=== PATIENT | male | born 1940 | race Asian ===

== ENCOUNTER 2020-04-27 11:10 | Inpatient (IN) | payer MEDICARE, OTHER ==
[2020-04-27] MEDS ORDERED: MAGNESIUM SULFATE 2 GRAM 2 GM/50 ML BAG IV ONE (12:17)
[2020-04-27] MEDS ORDERED: POTASSIUM CHLORIDE 20 MEQ TABLET PO STA (12:17)
[2020-04-27] MEDS ORDERED: SODIUM CHLORIDE 0.9% 1,000 ML IV STA (12:17)
[2020-04-27] MEDS ORDERED: POTASSIUM CHLOR 10 MEQ/100 ML 10 MEQ/100 ML BAG IV ONE (12:17)
--- NOTE | 2020-04-27 12:20 | ED Physician Documentation ---
History of Present Illness - Stated complaint Stated Complaint: MALE - Chief complaint Chief Complaint: General - History obtained from History obtained from: Patient, Family - History of Present Illness Timing: How many weeks ago (1) - Additonal information Additional information: over the past week increased falls, small volumes of foul urine frequently. He has been afebrile but feels weak in general and has had falls. He is accompanied by a daughter who is versed in his medical care. She is concerned about the falls and was asked by the PMD to bring him to the hospital for evaluation as the blood work showed a low potassium and renal insufficiency. The patient reports that he was not injured with the falls. Review of Systems Constitutional: denies: Fever Eyes: denies: Decreased vision Ears: denies: Ear pain Nose: denies: Congestion Throat: denies: Sore throat Cardiac: denies: Chest pain / pressure, Palpitations Respiratory: denies: Dyspnea, Cough GI: denies: Abdominal Pain, Nausea, Vomiting : denies: Dysuria, Frequency Skin: denies: Rash Musculoskeletal: denies: Neck pain, Back pain, Extremity pain Neurologic: reports: Generalized weakness, Other (frequent falling and off balance. Legs not supporting). denies: Focal weakness, Numbness, Difficulty speaking, Head injury, LOC PD PAST MEDICAL HISTORY - Allergies Allergies/Adverse Reactions: Allergies Allergy/AdvReac Type Severity Reaction Status Date / Time No Known Drug Allergies Allergy Verified 04/27/20 11:29 - Social History Does the pt smoke?: No Smoking Status: Never smoker PD ED PE NORMAL - Vitals Vital signs reviewed: Yes (normal ) - General General: Alert and oriented X 3, No acute distress, Well developed/nourished - HEENT HEENT: Atraumatic, PERRL, EOMI - Neck Neck: Supple, no meningeal sign - Cardiac Cardiac: RRR, No murmur - Respiratory Respiratory: No respiratory distress, Clear bilaterally - Abdomen Abdomen: Normal bowel sounds, Soft, Non tender, Non distended, No organomegaly - Back Back: No CVA TTP, No spinal TTP - Derm Derm: Normal color, Warm and dry, No rash - Extremities Extremities: No deformity, No edema - Neuro Neuro: Alert and oriented X 3, in home aide 2-12 intact, No motor deficit, No sensory deficit, Normal speech Eye Opening: Spontaneous Motor: Obeys Commands Verbal: Oriented GCS Score: 15 - Psych Psych: Normal mood, Normal affect Results - Vitals Vitals: Vital Signs - 24 hr 04/27/20 04/27/20 11:21 14:03 Temperature 36.9 C 36.6 C Heart Rate 68 73 Respiratory 16 16 Rate Blood Pressure 117/69 119/90 H O2 Saturation 96 99 Oxygen O2 Source Room air - Labs Labs: Laboratory Tests 04/27/20 04/27/20 04/27/20 12:32 12:37 12:37 WBC 9.4 RBC 4.54 L Hgb 14.6 Hct 42.7 MCV 94.1 H MCH 32.2 H MCHC 34.2 RDW 12.6 Plt Count 163 MPV 11.2 Neut # (Auto) 7.1 H Lymph # (Auto) 1.2 L Pima # (Auto) 0.9 Eos # (Auto) 0.1 Baso # (Auto) 0.1 Absolute Nucleated RBC 0.00 Nucleated RBC % 0.0 Sodium 137 Potassium 2.4 L* Chloride 92 L Carbon Dioxide 30 Anion Gap 15.0 H BUN 27 H Creatinine 1.8 H Estimated GFR (MDRD) 36 L Glucose 224 H Estimat Average Glucose Hemoglobin A1c % Lactic Acid Calcium 9.3 Total Bilirubin 1.2 H AST 25 ALT 40 Alkaline Phosphatase 54 Total Protein 6.6 L Albumin 3.3 Globulin 3.3 Albumin/Globulin Ratio 1.0 Lipase 26 Urine Color YELLOW Urine Clarity CLEAR Urine pH 6.5 Ur Specific Cameron 1.015 Urine Protein TRACE Urine Glucose (UA) NEGATIVE Urine Ketones NEGATIVE Urine Occult Blood MODERATE H Urine Nitrite NEGATIVE Urine Bilirubin NEGATIVE Urine Urobilinogen 0.2 (NORMAL) Ur Leukocyte Esterase SMALL H Urine RBC 11-25 H Urine WBC 11-25 H Ur Squamous Epith Cells RARE Squamous Urine Bacteria Few Urine Mucus Few Strands Ur Microscopic Review INDICATED Urine Culture Comments INDICATED 04/27/20 04/27/20 12:37 12:37 WBC RBC Hgb Hct MCV MCH MCHC RDW Plt Count MPV Neut # (Auto) Lymph # (Auto) Pima # (Auto) Eos # (Auto) Baso # (Auto) Absolute Nucleated RBC Nucleated RBC % Sodium Potassium Chloride Carbon Dioxide Anion Gap BUN Creatinine Estimated GFR (MDRD) Glucose Estimat Average Glucose 151 H Hemoglobin A1c % 6.9 H Lactic Acid 2.4 H Calcium Total Bilirubin AST ALT Alkaline Phosphatase Total Protein Albumin Globulin Albumin/Globulin Ratio Lipase Urine Color Urine Clarity Urine pH Ur Specific Cameron Urine Protein Urine Glucose (UA) Urine Ketones Urine Occult Blood Urine Nitrite Urine Bilirubin Urine Urobilinogen Ur Leukocyte Esterase Urine RBC Urine WBC Ur Squamous Epith Cells Urine Bacteria Urine Mucus Ur Microscopic Review Urine Culture Comments Procedures - IVC sono (time) 1215 Bedside IVC sono: IVC measures (cm) (0.92), IVC collapsed c insp (cm) (complete), Dehydration (est 2 liter deficit) PD MEDICAL DECISION MAKING - ED course Complexity details: reviewed results, re-evaluated patient, considered differential, d/w patient, d/w family ED course: 80 y/o male with frequent falls recently has a feeling of weakness in the legs and has foul smelling urine with a small volume and frequency. The patient is found to be dehydrated on interrogation of the IVC and saline is administered. He is diabetic and sugar is over 240 and in addition he is on 2 diuretics. He is found to have UTI and rocephin is administered. Lactate is elevated at 2.4. Potassium is low at 2.4. The patient has some improvement with treatment. He is still at risk today from falls and has not adequately regained his strength. Departure - Departure Disposition: [facility] DC/Xfer Clinical Impression: Dehydration, Hypokalemia Urinary tract infection Qualifiers: Urinary tract infection type: acute cystitis Hematuria presence: with hematuria Qualified Code(s): N30.01 - Acute cystitis with hematuria
[2020-04-27 12:50] LABS: BILIRUBIN,URINE NEGATIVE (NEGATIVE); GLUCOSE, URINE (UA) NEGATIVE (NEGATIVE); KETONES,URINE (UA) NEGATIVE (NEGATIVE); LEUKOCYTE ESTERASE, URINE SMALL (NEGATIVE); NITRITE,URINE NEGATIVE (NEGATIVE); OCCULT BLOOD,URINE MODERATE (NEGATIVE); PH,URINE 6.5 PH (5.0-7.5); PROTEIN,URINE TRACE mg/dL (NEGATIVE); UROBILINOGEN,URINE 0.2 (NORMAL) E.U./dL (NORMAL)
[2020-04-27 12:56] LABS: CLARITY,URINE CLEAR (CLEAR)
[2020-04-27 12:58] LABS: BASOPHILS # (AUTO) 0.1 10^3/uL (0.0-0.1); BASOPHILS % (AUTO) 0.5 %; EOSINOPHILS # (AUTO) 0.1 10^3/uL (0.0-0.7); EOSINOPHILS % (AUTO) 0.5 %; HGB - HEMOGLOBIN 14.6 g/dL (14.0-18.0); LYMPHOCYTES # (AUTO) 1.2 10^3/uL (1.5-3.5); LYMPHOCYTES % (AUTO) 13.2 %; MEAN CORPUSCULAR HEMOGLOBIN 32.2 pg (27.0-31.0); MEAN CORPUSCULAR HGB CONC 34.2 g/dL (32.0-36.0); MEAN CORPUSCULAR VOLUME 94.1 fL (80.0-94.0); MEAN PLATELET VOLUME 11.2 fL (7.4-11.4); MONOCYTES # (AUTO) 0.9 10^3/uL (0.0-1.0); MONOCYTES % (AUTO) 9.2 %; NEUTROPHILS # (AUTO) 7.1 10^3/uL (1.5-6.6); PLT - PLATELET COUNT 163 10^3/uL (130-450); RED BLOOD COUNT 4.54 10^6/uL (4.70-6.10); RED CELL DISTRIBUTION WIDTH 12.6 % (12.0-15.0); WHITE BLOOD COUNT 9.4 x10^3/uL (4.8-10.8)
[2020-04-27 13:01] LABS: BACTERIA,URINE Few /HPF (None Seen); MUCUS,URINE Few Strands; SQUAMOUS EPITHELIAL CELL,UR RARE Squamous (<= Few)
[2020-04-27] MEDS ORDERED: cefTRIAXone 1 GM in SODIUM CHLORIDE 0.9% MINIBAG 100 ML IV STA (13:05)
[2020-04-27 13:13] LABS: ALBUMIN 3.3 g/dL (3.2-5.5); BILIRUBIN,TOTAL 1.2 mg/dL (0.2-1.0); CALCIUM 9.3 mg/dL (8.5-10.3); CREATININE 1.8 mg/dL (0.6-1.2); TOTAL PROTEIN 6.6 g/dL (6.7-8.2)
[2020-04-27 13:39] LABS: HEMOGLOBIN A1c% 6.9 % (4.27-6.07)
[2020-04-27] MEDS ORDERED: SODIUM CHLORIDE FLUSH 0.9% 10 ML SYRINGE IVP PRN (14:29)
[2020-04-27] MEDS ORDERED: ONDANSETRON 4 MG/2 ML VIAL IVP PRN (14:29)
--- NOTE | 2020-04-27 15:37 | PHARMACY PROGRESS NOTE ---
- Best Possible Medication History Admit Date and Time: 04/27/20 1429 Processed by: Pharmacy Medication History completed: Yes Patient Interview: Completed Secondary Source(s): Physician records, Pharmacy records, Insurance records As the person ultimately responsible for medication therapy, providers are able to order a medication from an existing home medication list in [facility] via the "Reconcile Routine" prior to Confirmation of that medication by patient support tech. Such practice is discouraged except when the physician, in their clinical judgment, deems that a medical need exists for a medication without regard to previous use.
[2020-04-27] MEDS: POTASSIUM CHLOR 10 MEQ/100 ML 10 MEQ/100 ML BAG IV SCH ×5 (16:20→23:54)
[2020-04-27] MEDS: SODIUM CHLORIDE FLUSH 0.9% 10 ML SYRINGE IVP SCH (16:21)
[2020-04-27] MEDS: ACETAMINOPHEN 325 MG TABLET PO PRN ×2 (16:32→21:24)
[2020-04-27] MEDS: INSULIN ASPART 300 UNIT/3 ML PEN SUBQ SCH ×3 (17:43→21:23)
[2020-04-27] MEDS: FAMOTIDINE 20 MG TABLET PO SCH (21:24)
--- NOTE | 2020-04-27 21:41 | HISTORY & PHYSICAL EXAMINATION ---
Chief Complaint - Chief Complaint Chief Complaint: Weakness,Frequent falls History of Present Illness - Admitted From Admitted From:: [facility] ED - History Obtained From Records Reviewed: Yes History obtained from: Patient - History of Present Illness HPI Comment/Other: Patient is an 80-year-old male who was brought to the ED by her daughter for evaluation due to complaints of frequent/multiple falls over the past few months. He attributes this to weakness. He denies dizziness or tripping. He is normally independent of activities of daily living, he gets around his house using a walker and he still drives. He lives in [place] with his . Work-up in the ED showed him to have a creatinine of 1.8, potassium 2.5, urine analysis which was suggestive of a urinary tract infection and a lactic acid of 2.4. Patient reports dysuria and increased urinary frequency. He denied fever however he was noted to have a temperature as high as 37.7 C. He has also been complaining of chills since admission. At bedside he denies chest pain, abdominal pain, dyspnea, nausea, vomiting the rest of his history is unremarkable. History - Past Medical History Cardiovascular: reports: Hypertension, High cholesterol Respiratory: reports: None Endocrine/Autoimmune: reports: Type 2 diabetes GI: reports: None : reports: Benign prostate hypertrophy Psych: reports: None Musculoskeletal: reports: None Derm: reports: None - Past Surgical History Derm: reports: Other - Family & Social History Family History Comment/Other: His father at age 72 from an unspecified heart condition. His mother at age 92 from a ruptured abdominal aortic aneurysm. Living arrangement: At home Living Situation: With spouse/s.o. Social History Notes: Lives at home with his . He has a daughter who lives nearby. He denies tobacco or recreational substance use. He drinks 2-3 drinks of whiskey daily. He denied drinking today. He denied ever having withdrawal symptoms. He is independent of activities of daily living. He gets around his house using a walker. He still drives. - POLST Patient has POLST: No POLST Status: Full Code Meds/Allgy - Home Medications Home Medications: Ambulatory Orders Medication Instructions Recorded Confirmed Furosemide [Lasix] 40 mg PO DAILY 04/27/20 04/27/20 Lisinopril [Zestril] 20 mg PO BID 11/02/20 11/02/20 Potassium Chloride [Klor-Con 10] 10 meq PO QID 04/27/20 04/27/20 amLODIPine [Norvasc] 5 mg PO BID 04/27/20 04/27/20 hydroCHLOROthiazide 50 mg PO DAILY 04/27/20 04/27/20 [Hydrochlorothiazide] - Allergies Allergies/Adverse Reactions: Allergies Allergy/AdvReac Type Severity Reaction Status Date / Time No Known Drug Allergies Allergy Verified 04/27/20 11:29 Review of Systems - Constitutional Constitutional: reports: Fever, Chills, Weakness - Eyes Eyes: denies: Pain, Dipolpia - Ears, Nose & Throat Ears, Nose & Throat: denies: Ear pain - Cardiovascular Cariovascular: denies: Irregular heart rate, Palpitations, Chest pain, Edema, Lightheadedness, Syncope - Respiratory Respiratory: denies: Cough, Wheezing, SOB at rest, SOB with exertion - Gastrointestinal Gastrointestinal: denies: Abdominal pain, Abdominal distention, Diarrhea, N ausea, Vomiting, Reflux/heartburn - Genitourinary Genitourinary: reports: Dysuria, Frequency. denies: Urgency, Hematuria - Musculoskeletal Musculoskeletal: denies: Muscle pain, Back pain, Muscle aches, Stiffness - Integumentary Integumentary: denies: Rash, Pruritis, Lesions, Dryness - Neurological Neurological: reports: General weakness. denies: Focal weakness, Headache, Dizziness - Psychiatric Psychiatric: denies: Depression, Anxiety - Endocrine Endocrine: denies: Polyuria, Polydypsia - Hematologic/Lymphatic Hematologic/Lymphatic: reports: Bruising. denies: Anemia, Petechiae Prior Level of Functionality: He is independent of activities of daily living. He gets around the house using a walker. He still drives. Exam - Vital Signs Vital Signs: Vital Signs x48h Temp Pulse Pulse Resp BP BP Pulse Ox 04/27/20 21:28 36.8 C 04/27/20 20:34 37.7 C H 89 18 158/76 H 97 04/27/20 19:35 37.4 C 04/27/20 16:00 37.6 C H 91 18 124/88 H 98 04/27/20 15:03 37.6 C H 147 H 22 146/93 H 98 04/27/20 15:00 86 130/73 04/27/20 14:03 36.6 C 73 16 119/90 H 99 - Physical Exam General Appearance: positive: No acute distress, Alert Eyes Bilateral: positive: PERRL, EOMI ENT: positive: No signs of dehydration Neck: positive: No JVD, Trachea midline Respiratory: positive: Chest non-tender, No respiratory distress, Breath sounds nml. negative: Wheezes, Rales, Rhonchi Cardiovascular: positive: Regular rate & rhythm, No murmur Abdomen: positive: Non-tender, Nml bowel sounds, Other (obese abdome). negative: Guarding, Rebound Back: positive: Nml inspection Skin: positive: Color nml, No rash, Warm, Dry, Other (bruising on upper extremities) Extremities: positive: Non-tender, Full ROM, Nml appearance, No pedal edema Neurologic/Psychiatric: positive: Oriented x3, Mood/affect nml Conclusion/Plan - Problem List (1) Urinary tract infection Conclusion/Plan: Urine cultures pending. The patient spiked a fever later in the day after admission. Consequently blood cultures were obtained. Patient is on Rocephin 1 g every 24 hours. Qualifiers: Urinary tract infection type: acute cystitis Hematuria presence: with h ematuria Qualified Code(s): N30.01 - Acute cystitis with hematuria (2) Acute kidney injury Conclusion/Plan: Possibly multifactorial secondary to UTI and or dehydration. Patient receiving IV hydration Normal saline at 100 mils an hour. He was given a bolus of IV fluids in the ED. Patient is on Rocephin 1 g every 24 hours. (3) Hypokalemia Conclusion/Plan: We will hold patient's Lasix. Patient receiving IV potassium replacement. Recheck magnesium level and replace accordingly. (4) Dehydration Conclusion/Plan: On IV hydration with normal saline at 100 mils per hour. (5) Alcohol use Conclusion/Plan: Patient reports drinking 2-3 drinks of whiskey daily. He denies any history of alcohol withdrawal symptoms. Will monitor for withdrawal symptoms and order CIWA accordingly (6) Diabetes mellitus Conclusion/Plan: Patient reports this is a new diagnosis. He is not on any home medications currently. Sliding scale insulin and Accu-Cheks ordered. Patient's hemoglobin A1c was 6.9 Qualifiers: Diabetes mellitus type: type 2 - Lab Results Fish Bones: 04/27/20 12:37 04/27/20 19:24 Core Measures - Anticipated LOS I expect patient to be DC'd or transferred within 96 hours.: Yes - DVT/VTE - Prophylaxis VTE/DVT Device ordered at admit?: Yes VTE/DVT Prophylaxis med ordered at admit?: Yes
[2020-04-28] MEDS: SODIUM CHLORIDE 0.9% 1,000 ML IV SCH ×2 (00:08→09:26)
[2020-04-28] MEDS: POTASSIUM CHLOR 10 MEQ/100 ML 10 MEQ/100 ML BAG IV SCH ×6 (01:12→13:22)
[2020-04-28] MEDS: SODIUM CHLORIDE FLUSH 0.9% 10 ML SYRINGE IVP SCH ×4 (02:28→23:57)
[2020-04-28 06:01] LABS: BASOPHILS # (AUTO) 0.1 10^3/uL (0.0-0.1); BASOPHILS % (AUTO) 0.9 %; EOSINOPHILS # (AUTO) 0.3 10^3/uL (0.0-0.7); EOSINOPHILS % (AUTO) 3.7 %; HGB - HEMOGLOBIN 12.9 g/dL (14.0-18.0); LYMPHOCYTES % (AUTO) 14.7 %; MEAN CORPUSCULAR HEMOGLOBIN 31.9 pg (27.0-31.0); MEAN CORPUSCULAR HGB CONC 33.1 g/dL (32.0-36.0); MEAN CORPUSCULAR VOLUME 96.5 fL (80.0-94.0); MEAN PLATELET VOLUME 10.6 fL (7.4-11.4); MONOCYTES # (AUTO) 0.8 10^3/uL (0.0-1.0); MONOCYTES % (AUTO) 10.7 %; NEUTROPHILS # (AUTO) 4.8 10^3/uL (1.5-6.6); PLT - PLATELET COUNT 162 10^3/uL (130-450); RED BLOOD COUNT 4.04 10^6/uL (4.70-6.10); RED CELL DISTRIBUTION WIDTH 12.5 % (12.0-15.0)
[2020-04-28 06:08] LABS: CALCIUM 8.2 mg/dL (8.5-10.3); CREATININE 1.6 mg/dL (0.6-1.2)
[2020-04-28] MEDS ORDERED: POTASSIUM CHLORIDE 20 MEQ TABLET PO ONE (08:20)
[2020-04-28] MEDS: cefTRIAXone 1 GM in SODIUM CHLORIDE 0.9% MINIBAG 100 ML IV SCH (09:26)
[2020-04-28] MEDS: FAMOTIDINE 20 MG TABLET PO SCH ×2 (09:27→21:33)
[2020-04-28] MEDS: THIAMINE 100 MG TABLET PO SCH (09:30)
[2020-04-28] MEDS: INSULIN ASPART 300 UNIT/3 ML PEN SUBQ SCH ×4 (09:50→21:33)
[2020-04-28] MEDS: PRENATAL VITAMIN TABLET PO SCH (09:59)
--- NOTE | 2020-04-28 13:07 | PROVIDER PROGRESS NOTE ---
Assessment/Plan - Problem List (1) Urinary tract infection Qualifiers: Urinary tract infection type: acute cystitis Hematuria presence: with hematuria Qualified Code(s): N30.01 - Acute cystitis with hematuria Assessment/Plan: Patient's WBC is normal but patient had spot elevated temperature in hospital. Blood culture is pending. UA culture show positive E. coli, Sensitivity study is pending, We will continue Rocephin (2) Acute kidney injury improved. Creatinine is 1.6 from 1.8 in the admission, likely prerenal azotemia, Continue hydration, continue lab monitor. Hold home medication Lasix and HCTZ (3) Hypokalemia We will hold patient's Lasix, and HCTZ now. 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 He denies any history of alcohol withdrawal symptoms. Will monitor for withdrawal symptoms and order CIWA accordingly, and order and Vitamin B1 (6) Diabetes mellitus Patient's hemoglobin A1c was 6.9,Elevated glucose level. hematology nurse educator consult with patient, Continue sliding scale, continue Hypoglycemia protocol (7)weakness Patient present weakness, fall at home, we will consult with physical therapist and occupational therapist - Current Meds Current Meds: Current Medications Generic Name Dose Route Start Last Admin Trade Name Freq PRN Reason Stop Dose Admin Acetaminophen 650 mg 04/27/20 14:29 04/27/20 21:24 Tylenol PO 650 mg Q4HR PRN Administration Pain or Fever > 38C (100.4F) Famotidine 20 mg 04/27/20 21:00 04/28/20 09:27 Pepcid PO 20 mg BID ROBERT Administration Ceftriaxone Sodium 1 gm/ 100 mls @ 200 mls/hr 04/28/20 09:00 04/28/20 10:11 Sodium Chloride IV Infused DAILY ROBERT Infusion Sodium Chloride 1,000 mls @ 100 mls/hr 04/27/20 23:00 04/28/20 09:26 Normal Saline 0.9% IV 100 mls/hr .Q10H ROBERT Administration Insulin Aspart 1 - 9 unit 04/27/20 21:30 04/28/20 11:52 Novolog SUBQ 3 unit 0800,1200,1700,2100 ROBERT Administration Protocol Multivit/Folic Acid/Iron 1 tab 04/28/20 09:00 04/28/20 09:59 Trinatal Rx 1 PO 1 tab DAILYWM ROBERT Administration Sodium Chloride 10 ml 04/27/20 17:00 04/28/20 09:59 Normal Saline Flush 0.9% IVP Not Given 0100,0900,1700 ROBERT Thiamine HCl 100 mg 04/28/20 09:00 04/28/20 09:30 Vitamin B-1 PO 100 mg DAILY ROBERT Administration - Lab Result Fish Bone Diagrams: 04/28/20 05:15 04/28/20 13:55 - Additional Planning My Orders: My Active Orders 04/28/20 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 Consult [CONS] Routine Social Work Consult [CONS] Routine Evaluate and Treat OT [OT] Routine Evaluate and Treat PT [PT] Routine 04/28/20 09:00 Vitamin [Trinatal Rx 1] 1 tab PO DAILYWM Thiamine [Vitamin B-1] 100 mg PO DAILY 04/28/20 09:29 Diabetic Education [RC] ONCE Subjective - Subjective Patient Reports: Feeling Better Objective Vital Signs: Vital Signs - 24 hr 04/27/20 04/27/20 04/27/20 14:03 15:00 15:03 Temperature 36.6 C 37.6 C H Heart Rate 73 Heart Rate [ Activity] Heart Rate [ 86 147 H Brachial] Heart Rate [ Sitting] Heart Rate [ Supine] Respiratory 16 22 Rate Blood Pressure 119/90 H Blood Pressure [Activity] Blood Pressure [Right Brachial artery] Blood Pressure 130/73 146/93 H [Right Radial artery] Blood Pressure [Sitting] Blood Pressure [Supine] O2 Saturation 99 98 04/27/20 04/27/20 04/27/20 16:00 19:35 20:34 Temperature 37.6 C H 37.4 C 37.7 C H Heart Rate Heart Rate [ Activity] Heart Rate [ 91 89 Brachial] Heart Rate [ Sitting] Heart Rate [ Supine] Respiratory 18 18 Rate Blood Pressure Blood Pressure [Activity] Blood Pressure [Right Brachial artery] Blood Pressure 124/88 H 158/76 H [Right Radial artery] Blood Pressure [Sitting] Blood Pressure [Supine] O2 Saturation 98 97 04/27/20 04/28/20 04/28/20 21:28 00:00 03:39 Temperature 36.8 C 37.7 C H 37.2 C Heart Rate Heart Rate [ Activity] Heart Rate [ 71 Brachial] Heart Rate [ Sitting] Heart Rate [ Supine] Respiratory 16 Rate Blood Pressure Blood Pressure [Activity] Blood Pressure [Right Brachial artery] Blood Pressure 126/65 [Right Radial artery] Blood Pressure [Sitting] Blood Pressure [Supine] O2 Saturation 95 04/28/20 04/28/20 04/28/20 04:06 04:35 08:24 Temperature 37.8 C H 37.4 C 37.5 C Heart Rate Heart Rate [ Activity] Heart Rate [ 80 77 Brachial] Heart Rate [ Sitting] Heart Rate [ Supine] Respiratory 20 20 Rate Blood Pressure Blood Pressure [Activity] Blood Pressure 134/82 H 133/67 H [Right Brachial artery] Blood Pressure [Right Radial artery] Blood Pressure [Sitting] Blood Pressure [Supine] O2 Saturation 97 96 04/28/20 04/28/20 12:09 12:25 Temperature 37.6 C H Heart Rate Heart Rate [ 65 Activity] Heart Rate [ 89 Brachial] Heart Rate [ 79 Sitting] Heart Rate [ 87 Supine] Respiratory 20 Rate Blood Pressure Blood Pressure 153/86 H [Activity] Blood Pressure 128/58 L [Right Brachial artery] Blood Pressure [Right Radial artery] Blood Pressure 131/70 H [Sitting] Blood Pressure 129/68 [Supine] O2 Saturation 96 Oxygen O2 Source Room air I&O (Last 24 Hrs): Intake and Output Totals x24h 04/26/20 04/27/20 04/28/20 23:59 23:59 23:59 Intake Total 1999 2680 Output Total 100 390 Balance 1900 2290 General: Alert, Oriented x3, No acute distress HEENT: Atraumatic Neck: Supple Lymphatic: no adenopathy Neuro: Alert, Non Focal, Oriented Times 3 Cardiovascular: Regular rate, Normal S1, Normal S2 Respiratory: Chest non-tender, No respiratory distress Abdomen: Normal bowel sounds, Soft Extremities: Normal pulses - Results Results: Laboratory Results WBC 7.0 x10^3/uL (4.8-10.8) 04/28/20 05:15 RBC 4.04 10^6/uL (4.70-6.10) L 04/28/20 05:15 Hgb 12.9 g/dL (14.0-18.0) L 04/28/20 05:15 Hct 39.0 % (42.0-52.0) L 04/28/20 05:15 MCV 96.5 fL (80.0-94.0) H 04/28/20 05:15 MCH 31.9 pg (27.0-31.0) H 04/28/20 05:15 MCHC 33.1 g/dL (32.0-36.0) 04/28/20 05:15 RDW 12.5 % (12.0-15.0) 04/28/20 05:15 Plt Count 162 10^3/uL (130-450) 04/28/20 05:15 MPV 10.6 fL (7.4-11.4) 04/28/20 05:15 Neut # (Auto) 4.8 10^3/uL (1.5-6.6) 04/28/20 05:15 Lymph # (Auto) 1.0 10^3/uL (1.5-3.5) L 04/28/20 05:15 Dane # (Auto) 0.8 10^3/uL (0.0-1.0) 04/28/20 05:15 Eos # (Auto) 0.3 10^3/uL (0.0-0.7) 04/28/20 05:15 Baso # (Auto) 0.1 10^3/uL (0.0-0.1) 04/28/20 05:15 Absolute Nucleated RBC 0.00 x10^3/uL 04/28/20 05:15 Nucleated RBC % 0.0 /100WBC 04/28/20 05:15 Sodium 138 mmol/L (135-145) 04/28/20 05:15 Potassium 2.8 mmol/L (3.5-5.0) L 04/28/20 05:15 Chloride 99 mmol/L (101-111) L 04/28/20 05:15 Carbon Dioxide 29 mmol/L (21-32) 04/28/20 05:15 Anion Gap 10.0 (6-13) 04/28/20 05:15 BUN 24 mg/dL (6-20) H 04/28/20 05:15 Creatinine 1.6 mg/dL (0.6-1.2) H 04/28/20 05:15 Estimated GFR (MDRD) 42 (>89) L 04/28/20 05:15 Glucose 170 mg/dL (70-100) H 04/28/20 05:15 POC Whole Bld Glucose 189 mg/dL (70 - 100) H 04/28/20 11:33 Estimat Average Glucose 151 mg/dL (70-100) H 04/27/20 12:37 Hemoglobin A1c % 6.9 % (4.27-6.07) H 04/27/20 12:37 Lactic Acid 2.4 mmol/L (0.5-2.2) H 04/27/20 15:08 Calcium 8.2 mg/dL (8.5-10.3) L 04/28/20 05:15 Magnesium 2.6 mg/dL (1.7-2.8) 04/27/20 19:24 Total Bilirubin 1.2 mg/dL (0.2-1.0) H 04/27/20 12:37 AST 25 IU/L (10-42) 04/27/20 12:37 ALT 40 IU/L (10-60) 04/27/20 12:37 Alkaline Phosphatase 54 IU/L (42-121) 04/27/20 12:37 Total Protein 6.6 g/dL (6.7-8.2) L 04/27/20 12:37 Albumin 3.3 g/dL (3.2-5.5) 04/27/20 12:37 Globulin 3.3 g/dL (2.1-4.2) 04/27/20 12:37 Albumin/Globulin Ratio 1.0 (1.0-2.2) 04/27/20 12:37 Lipase 26 U/L (22-51) 04/27/20 12:37 Urine Color YELLOW 04/27/20 12:32 Urine Clarity CLEAR (CLEAR) 04/27/20 12:32 Urine pH 6.5 PH (5.0-7.5) 04/27/20 12:32 Ur Specific Donalds 1.015 (1.002-1.030) 04/27/20 12:32 Urine Protein TRACE mg/dL (NEGATIVE) 04/27/20 12:32 Urine Glucose (UA) NEGATIVE mg/dL (NEGATIVE) 04/27/20 12:32 Urine Ketones NEGATIVE mg/dL (NEGATIVE) 04/27/20 12:32 Urine Occult Blood MODERATE (NEGATIVE) H 04/27/20 12:32 Urine Nitrite NEGATIVE (NEGATIVE) 04/27/20 12:32 Urine Bilirubin NEGATIVE (NEGATIVE) 04/27/20 12:32 Urine Urobilinogen 0.2 (NORMAL) E.U./dL (NORMAL) 04/27/20 12:32 Ur Leukocyte Esterase SMALL (NEGATIVE) H 04/27/20 12:32 Urine RBC 11-25 /HPF (0-5) H 04/27/20 12:32 Urine WBC 11-25 /HPF (0-3) H 04/27/20 12:32 Ur Squamous Epith Cells RARE Squamous (<= Few) 04/27/20 12:32 Urine Bacteria Few /HPF (None Seen) 04/27/20 12:32 Urine Mucus Few Strands 04/27/20 12:32 Ur Microscopic Review INDICATED 04/27/20 12:32 Urine Culture Comments INDICATED 04/27/20 12:32 ABX Reporting Has patient been on IV antibiotics over the past 48 hours?: Yes Current Medications - Current Medications Current Medications: Active Medications Acetaminophen (Tylenol) 650 mg PO Q4HR PRN PRN Reason: Pain or Fever > 38C (100.4F) Last Admin: 04/27/20 21:24 Dose: 650 mg Documented by: Famotidine (Pepcid) 20 mg PO BID [facility] Last Admin: 04/28/20 09:27 Dose: 20 mg Documented by: Ceftriaxone Sodium 1 gm/ (Sodium Chloride) 100 mls @ 200 mls/hr IV DAILY [facility] Last Infusion: 04/28/20 10:11 Dose: Infused Documented by: Sodium Chloride (Normal Saline 0.9%) 1,000 mls @ 100 mls/hr IV .Q10H [facility] Stop: 04/28/20 18:59 Last Admin: 04/28/20 09:26 Dose: 100 mls/hr Documented by: Insulin Aspart (Novolog) 1 - 9 unit SUBQ 0800,1200,1700,2100 [facility]; Protocol Last Admin: 04/28/20 11:52 Dose: 3 unit Documented by: Ondansetron HCl (Zofran Inj) 4 mg IVP Q6HR PRN PRN Reason: Nausea / Vomiting Multivit/Folic Acid/Iron (Trinatal Rx 1) 1 tab PO DAILYWM [facility] Last Admin: 04/28/20 09:59 Dose: 1 tab Documented by: Sodium Chloride (Normal Saline Flush 0.9%) 10 ml IVP PRN PRN PRN Reason: NEEDED PER PROVIDER ORDERS Sodium Chloride (Normal Saline Flush 0.9%) 10 ml IVP 0100,0900,1700 [facility] Last Admin: 04/28/20 09:59 Dose: Not Given Documented by: Thiamine HCl (Vitamin B-1) 100 mg PO DAILY [facility] Last Admin: 04/28/20 09:30 Dose: 100 mg Documented by: Furosemide [Lasix] 40 mg PO DAILY 04/27/20 Lisinopril [Zestril] 20 mg PO BID 04/27/20 Potassium Chloride [Klor-Con 10] 10 meq PO QID 04/27/20 amLODIPine [Norvasc] 5 mg PO BID 04/27/20 hydroCHLOROthiazide [Hydrochlorothiazide] 50 mg PO DAILY 04/27/20
[2020-04-28 14:22] LABS: CALCIUM 8.1 mg/dL (8.5-10.3); CREATININE 1.8 mg/dL (0.6-1.2)
[2020-04-29 05:21] LABS: BASOPHILS # (AUTO) 0.1 10^3/uL (0.0-0.1); BASOPHILS % (AUTO) 0.9 %; EOSINOPHILS # (AUTO) 0.1 10^3/uL (0.0-0.7); EOSINOPHILS % (AUTO) 2.4 %; HGB - HEMOGLOBIN 12.8 g/dL (14.0-18.0); LYMPHOCYTES # (AUTO) 1.1 10^3/uL (1.5-3.5); LYMPHOCYTES % (AUTO) 19.2 %; MEAN CORPUSCULAR HEMOGLOBIN 32.5 pg (27.0-31.0); MEAN CORPUSCULAR HGB CONC 33.8 g/dL (32.0-36.0); MEAN CORPUSCULAR VOLUME 96.2 fL (80.0-94.0); MEAN PLATELET VOLUME 10.4 fL (7.4-11.4); MONOCYTES # (AUTO) 0.7 10^3/uL (0.0-1.0); MONOCYTES % (AUTO) 11.9 %; NEUTROPHILS # (AUTO) 3.6 10^3/uL (1.5-6.6); NEUTROPHILS % (AUTO) 64.5 %; PLT - PLATELET COUNT 161 10^3/uL (130-450); RED BLOOD COUNT 3.94 10^6/uL (4.70-6.10); RED CELL DISTRIBUTION WIDTH 12.4 % (12.0-15.0); WHITE BLOOD COUNT 5.5 x10^3/uL (4.8-10.8)
[2020-04-29 05:29] LABS: CALCIUM 8.3 mg/dL (8.5-10.3); CREATININE 1.7 mg/dL (0.6-1.2)
[2020-04-29] MEDS ORDERED: POTASSIUM CHLORIDE 20 MEQ TABLET PO ONE (08:00)
[2020-04-29] MEDS: PRENATAL VITAMIN TABLET PO SCH (08:04)
[2020-04-29] MEDS: THIAMINE 100 MG TABLET PO SCH (08:05)
[2020-04-29] MEDS: FAMOTIDINE 20 MG TABLET PO SCH ×2 (08:05→22:03)
[2020-04-29] MEDS: cefTRIAXone 1 GM in SODIUM CHLORIDE 0.9% MINIBAG 100 ML IV SCH (08:06)
[2020-04-29] MEDS: INSULIN ASPART 300 UNIT/3 ML PEN SUBQ SCH ×4 (08:07→22:07)
[2020-04-29] MEDS: POTASSIUM CHLOR 10 MEQ/100 ML 10 MEQ/100 ML BAG IV SCH ×4 (08:08→11:33)
[2020-04-29] MEDS: SODIUM CHLORIDE FLUSH 0.9% 10 ML SYRINGE IVP SCH ×2 (08:08→17:54)
[2020-04-29] MEDS: SODIUM CHLORIDE 0.9% 1,000 ML IV SCH ×2 (08:36→17:54)
--- NOTE | 2020-04-29 10:44 | Ultrasound Report ---
PROCEDURE: Retroperitoneal-Limited INDICATIONS: JIMMIE, urinary obstruction? TECHNIQUE: Real-time scanning was performed of the retroperitoneal organs, with image documentation. COMPARISON: None. FINDINGS: Kidneys: Kidneys are normal in size. Right kidney measures 4.1 cm long; left kidney measures 12.4 c m long. Right renal cortical thickness is 1.2 cm; left renal cortical thickness is 1.2 cm. No solid masses, hydronephrosis, or nephrolithiasis. 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 There is a 1.6 x 1.3 x 1. 8 cm right renal cyst. IMPRESSION: 1. No hydronephrosis. 2. Right renal cyst. 3. 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 Reviewed by: Keena Rodriguez MD, PhD on 04/29/2020 10:42 AM PST Approved by: Keena Rodriguez MD, PhD on 04/29/2020 10:42 AM PST Station ID: [id number]
--- NOTE | 2020-04-29 11:58 | PROVIDER PROGRESS NOTE ---
Assessment/Plan - Problem List (1) Hypokalemia Assessment/Plan: Patient was found potassium 2.4 in the admission. We hold the patient home medication HCTZ and Lasix, And replaced with potassium, But the patient continue to have hypoglycemia, Today patient potassium is 2.8, Creatinine 1.7. 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 coli, we will change intravenous antibiotics to oral antibiotics According to sensitivity study. Patient's WBC is normal but patient had spot elevated temperature in hospital. Blood culture is pending. UA culture show positive E. coli, Sensitivity study is pending, We will continue Rocephin (2) Acute kidney injury Remained stable, his creatinine is 1.7 today improved. Creatinine is 1.6 from 1.8 in the admission, likely prerenal azotemia, Continue hydration, continue lab monitor. Hold home medication Lasix and HCTZ (4) Dehydration Conclusion/Plan: resolved. (5) Alcohol use Conclusion/Plan: Patient reports drinking 2-3 drinks of whiskey daily. He denies any history of alcohol withdrawal symptoms. Will monitor for withdrawal symptoms and order CIWA accordingly, and order and Vitamin B1 (6) Diabetes mellitus 04/29 Patient had hospital educator consulted. Pln discharge patient with Metformin, follow-up his PCP for Continuing management Patient's hemoglobin A1c was 6.9,Elevated glucose level. hospital educator cons ult with patient, Continue sliding scale, continue Hypoglycemia protocol (7)weakness 114,PT and OT recommended patient had home health PT OT, will order for patient Patient present weakness, fall at home, we will consult with physical therapist and occupational therapist - Current Meds Current Meds: Current Medications Generic Name Dose Route Start Last Admin Trade Name Freq PRN Reason Stop Dose Admin Acetaminophen 650 mg 04/27/20 14:29 04/27/20 21:24 Tylenol PO 650 mg Q4HR PRN Administration Pain or Fever > 38C (100.4F) Famotidine 20 mg 04/27/20 21:00 04/29/20 08:05 Pepcid PO 20 mg BID ROBERT Administration Potassium Chloride 10 meq in 100 mls @ 100 mls/hr 04/29/20 08:00 04/29/20 11:33 Potassium Chloride IV 04/29/20 11:59 100 mls/hr Q1H ROBERT Administration Sodium Chloride 1,000 mls @ 100 mls/hr 04/29/20 09:00 04/29/20 08:36 Normal Saline 0.9% IV 04/30/20 04:59 100 mls/hr .Q10H ROBERT Administration Insulin Aspart 1 - 9 unit 04/27/20 21:30 04/29/20 08:07 Novolog SUBQ 1 unit 0800,1200,1700,2100 ROBERT Administration Protocol Multivit/Folic Acid/Iron 1 tab 04/28/20 09:00 04/29/20 08:04 Trinatal Rx 1 PO 1 tab DAILYWM ROBERT Administration Sodium Chloride 10 ml 04/27/20 14:29 04/28/20 21:40 Normal Saline Flush 0.9% IVP 10 ml PRN PRN Administration NEEDED PER PROVIDER ORDERS Sodium Chloride 10 ml 04/27/20 17:00 04/29/20 08:08 Normal Saline Flush 0.9% IVP 10 ml 0100,0900,1700 ROBERT Administration Thiamine HCl 100 mg 04/28/20 09:00 04/29/20 08:05 Vitamin B-1 PO 100 mg DAILY ROBERT Administration - Lab Result Fish Bone Diagrams: 04/29/20 05:00 04/29/20 05:00 - Additional Planning My Orders: My Active Orders 04/29/20 Home Health Referral [CONS] Routine 04/29/20 09:00 Sodium Chloride 0.9% [Normal Saline 0.9%] 1,000 ml IV 100 mls/hr 04/29/20 14:00 BMP - BASIC METABOLIC PANEL [CHEM] Timed cephALEXin [Keflex] 500 mg PO TID Subjective - Subjective Patient Reports: Feeling Better Objective Vital Signs: Vital Signs - 24 hr 04/28/20 04/28/20 04/28/20 12:09 12:25 16:47 Temperature 37.6 C H 37.4 C Heart Rate Heart Rate [ 65 Activity] Heart Rate [ 89 76 Brachial] Heart Rate [ 79 Sitting] Heart Rate [ 87 Supine] Respiratory 20 18 Rate Blood Pressure 153/86 H [Activity] Blood Pressure 138/79 H [Left Brachial artery] Blood Pressure 128/58 L [Right Brachial artery] Blood Pressure 131/70 H [Sitting] Blood Pressure 129/68 [Supine] O2 Saturation 96 98 04/28/20 04/28/20 04/28/20 17:18 21:00 21:11 Temperature 37.4 C 37.2 C Heart Rate 89 Heart Rate [ Activity] Heart Rate [ 124 H 78 Brachial] Heart Rate [ Sitting] Heart Rate [ Supine] Respiratory 20 18 Rate Blood Pressure [Activity] Blood Pressure 131/71 H [Left Brachial artery] Blood Pressure [Right Brachial artery] Blood Pressure [Sitting] Blood Pressure [Supine] O2 Saturation 98 98 04/29/20 04/29/20 04/29/20 00:11 03:47 07:32 Temperature 36.5 C 37.1 C 37.1 C Heart Rate Heart Rate [ Activity] Heart Rate [ 77 69 69 Brachial] Heart Rate [ Sitting] Heart Rate [ Supine] Respiratory 18 Rate Blood Pressure [Activity] Blood Pressure [Left Brachial artery] Blood Pressure 127/66 133/73 H 136/87 H [Right Brachial artery] Blood Pressure [Sitting] Blood Pressure [Supine] O2 Saturation 98 96 97 Oxygen O2 Source Room air I&O (Last 24 Hrs): Intake and Output Totals x24h 04/27/20 04/28/20 04/29/20 23:59 23:59 23:59 Intake Total 2000 4670 750 Output Total 100 1390 600 Balance 1900 3280 150 General: Alert, Oriented x3, No acute distress HEENT: Atraumatic Neck: Supple Lymphatic: no adenopathy Neuro: Alert, Non Focal, Oriented Times 3 Cardiovascular: Regular rate, Normal S1, Normal S2 Respiratory: Chest non-tender, No respiratory distress Abdomen: Normal bowel sounds, Soft, No tenderness Extremities: Normal pulses - Results Results: Laboratory Results WBC 5.5 x10^3/uL (4.8-10.8) 04/29/20 05:00 RBC 3.94 10^6/uL (4.70-6.10) L 04/29/20 05:00 Hgb 12.8 g/dL (14.0-18.0) L 04/29/20 05:00 Hct 37.9 % (42.0-52.0) L 04/29/20 05:00 MCV 96.2 fL (80.0-94.0) H 04/29/20 05:00 MCH 32.5 pg (27.0-31.0) H 04/29/20 05:00 MCHC 33.8 g/dL (32.0-36.0) 04/29/20 05:00 RDW 12.4 % (12.0-15.0) 04/29/20 05:00 Plt Count 161 10^3/uL (130-450) 04/29/20 05:00 MPV 10.4 fL (7.4-11.4) 04/29/20 05:00 Neut # (Auto) 3.6 10^3/uL (1.5-6.6) 04/29/20 05:00 Lymph # (Auto) 1.1 10^3/uL (1.5-3.5) L 04/29/20 05:00 Arroyo # (Auto) 0.7 10^3/uL (0.0-1.0) 04/29/20 05:00 Eos # (Auto) 0.1 10^3/uL (0.0-0.7) 04/29/20 05:00 Baso # (Auto) 0.1 10^3/uL (0.0-0.1) 04/29/20 05:00 Absolute Nucleated RBC 0.00 x10^3/uL 04/29/20 05:00 Nucleated RBC % 0.0 /100WBC 04/29/20 05:00 Sodium 137 mmol/L (135-145) 04/29/20 05:00 Potassium 2.8 mmol/L (3.5-5.0) L 04/29/20 05:00 Chloride 99 mmol/L (101-111) L 04/29/20 05:00 Carbon Dioxide 28 mmol/L (21-32) 04/29/20 05:00 Anion Gap 10.0 (6-13) 04/29/20 05:00 BUN 28 mg/dL (6-20) H 04/29/20 05:00 Creatinine 1.7 mg/dL (0.6-1.2) H 04/29/20 05:00 Estimated GFR (MDRD) 39 (>89) L 04/29/20 05:00 Glucose 167 mg/dL (70-100) H 04/29/20 05:00 POC Whole Bld Glucose 176 mg/dL (70 - 100) H 04/29/20 11:48 Estimat Average Glucose 151 mg/dL (70-100) H 04/27/20 12:37 Hemoglobin A1c % 6.9 % (4.27-6.07) H 04/27/20 12:37 Lactic Acid 2.4 mmol/L (0.5-2.2) H 04/27/20 15:08 Calcium 8.3 mg/dL (8.5-10.3) L 04/29/20 05:00 Magnesium 2.6 mg/dL (1.7-2.8) 04/27/20 19:24 Total Bilirubin 1.2 mg/dL (0.2-1.0) H 04/27/20 12:37 AST 25 IU/L (10-42) 04/27/20 12:37 ALT 40 IU/L (10-60) 04/27/20 12:37 Alkaline Phosphatase 54 IU/L (42-121) 04/27/20 12:37 Total Protein 6.6 g/dL (6.7-8.2) L 04/27/20 12:37 Albumin 3.3 g/dL (3.2-5.5) 04/27/20 12:37 Globulin 3.3 g/dL (2.1-4.2) 04/27/20 12:37 Albumin/Globulin Ratio 1.0 (1.0-2.2) 04/27/20 12:37 Lipase 26 U/L (22-51) 04/27/20 12:37 Urine Color YELLOW 04/27/20 12:32 Urine Clarity CLEAR (CLEAR) 04/27/20 12:32 Urine pH 6.5 PH (5.0-7.5) 04/27/20 12:32 Ur Specific Mcintosh 1.015 (1.002-1.030) 04/27/20 12:32 Urine Protein TRACE mg/dL (NEGATIVE) 04/27/20 12:32 Urine Glucose (UA) NEGATIVE mg/dL (NEGATIVE) 04/27/20 12:32 Urine Ketones NEGATIVE mg/dL (NEGATIVE) 04/27/20 12:32 Urine Occult Blood MODERATE (NEGATIVE) H 04/27/20 12:32 Urine Nitrite NEGATIVE (NEGATIVE) 04/27/20 12:32 Urine Bilirubin NEGATIVE (NEGATIVE) 04/27/20 12:32 Urine Urobilinogen 0.2 (NORMAL) E.U./dL (NORMAL) 04/27/20 12:32 Ur Leukocyte Esterase SMALL (NEGATIVE) H 04/27/20 12:32 Urine RBC 11-25 /HPF (0-5) H 04/27/20 12:32 Urine WBC 11-25 /HPF (0-3) H 04/27/20 12:32 Ur Squamous Epith Cells RARE Squamous (<= Few) 04/27/20 12:32 Urine Bacteria Few /HPF (None Seen) 04/27/20 12:32 Urine Mucus Few Strands 04/27/20 12:32 Ur Microscopic Review INDICATED 04/27/20 12:32 Urine Culture Comments INDICATED 04/27/20 12:32 Urine Sodium 50.0 mmol/L 04/29/20 09:30 Urine Potassium 32.1 mmol/L 04/29/20 09:30 ABX Reporting Has patient been on IV antibiotics over the past 48 hours?: Yes Current Medications - Current Medications Current Medications: Active Medications Acetaminophen (Tylenol) 650 mg PO Q4HR PRN PRN Reason: Pain or Fever > 38C (100.4F) Last Admin: 04/27/20 21:24 Dose: 650 mg Documented by: Cephalexin (Keflex) 500 mg PO TID [facility] Famotidine (Pepcid) 20 mg PO BID [facility] Last Admin: 04/29/20 08:05 Dose: 20 mg Documented by: Sodium Chloride (Normal Saline 0.9%) 1,000 mls @ 100 mls/hr IV .Q10H [facility] Stop: 04/30/20 04:59 Last Admin: 04/29/20 08:36 Dose: 100 mls/hr Documented by: Insulin Aspart (Novolog) 1 - 9 unit SUBQ 0800,1200,1700,2100 [facility]; Protocol Last Admin: 04/29/20 12:04 Dose: 1 unit Documented by: Ondansetron HCl (Zofran Inj) 4 mg IVP Q6HR PRN PRN Reason: Nausea / Vomiting Multivit/Folic Acid/Iron (Trinatal Rx 1) 1 tab PO DAILYWM [facility] Last Admin: 04/29/20 08:04 Dose: 1 tab Documented by: Saccharomyces Boulardii (Florastor) 250 mg PO BIDWM [facility] Sodium Chloride (Normal Saline Flush 0.9%) 10 ml IVP PRN PRN PRN Reason: NEEDED PER PROVIDER ORDERS Last Admin: 04/28/20 21:40 Dose: 10 ml Documented by: Sodium Chloride (Normal Saline Flush 0.9%) 10 ml IVP 0100,0900,1700 [facility] Last Admin: 04/29/20 08:08 Dose: 10 ml Documented by: Thiamine HCl (Vitamin B-1) 100 mg PO DAILY [facility] Last Admin: 04/29/20 08:05 Dose: 100 mg Documented by: Furosemide [Lasix] 40 mg PO DAILY 04/27/20 Lisinopril [Zestril] 20 mg PO BID 04/27/20 Potassium Chloride [Klor-Con 10] 10 meq PO QID 04/27/20 amLODIPine [Norvasc] 5 mg PO BID 04/27/20 hydroCHLOROthiazide [Hydrochlorothiazide] 50 mg PO DAILY 04/27/20
--- NOTE | 2020-04-29 12:42 | XRAY Report ---
PROCEDURE: Chest 1 View X-Ray INDICATIONS: weakness, arrhythmia TECHNIQUE: One view of the chest was acquired. COMPARISON: None FINDINGS: Surgical changes and devices: None. Lungs and pleura: No pleural effusions or pneumothorax. Lungs are clear. Mediastinum: Mediastinal contours appear normal. Heart is enlarged. Bones and chest wall: No suspicious bony lesions. Overlying soft tissues appear unremarkable. IMPRESSION: 1. Cardiomegaly. 2. No acute cardiopulmonary disease process. Reviewed by: Keena Rodriguez MD, PhD on 04/29/2020 12:41 PM PST Approved by: Keena Rodriguez MD, PhD on 04/29/2020 12:41 PM PST Station ID: [id number]
[2020-04-29] MEDS: SACCHAROMYCES BOULARDII 250 MG CAPSULE PO SCH ×2 (12:57→17:54)
[2020-04-29] MEDS: cephALEXin 250 MG CAPSULE PO SCH ×2 (14:30→22:03)
[2020-04-29 15:21] LABS: CALCIUM 8.2 mg/dL (8.5-10.3); CREATININE 1.6 mg/dL (0.6-1.2)
[2020-04-30] MEDS: SODIUM CHLORIDE FLUSH 0.9% 10 ML SYRINGE IVP SCH ×2 (00:33→11:17)
[2020-04-30 05:22] LABS: BASOPHILS # (AUTO) 0.1 10^3/uL (0.0-0.1); BASOPHILS % (AUTO) 0.9 %; EOSINOPHILS # (AUTO) 0.2 10^3/uL (0.0-0.7); EOSINOPHILS % (AUTO) 2.9 %; HGB - HEMOGLOBIN 13.1 g/dL (14.0-18.0); LYMPHOCYTES % (AUTO) 15.5 %; MEAN CORPUSCULAR HEMOGLOBIN 32.6 pg (27.0-31.0); MEAN CORPUSCULAR HGB CONC 34.2 g/dL (32.0-36.0); MEAN CORPUSCULAR VOLUME 95.3 fL (80.0-94.0); MEAN PLATELET VOLUME 10.3 fL (7.4-11.4); MONOCYTES # (AUTO) 0.7 10^3/uL (0.0-1.0); MONOCYTES % (AUTO) 11.3 %; NEUTROPHILS # (AUTO) 4.5 10^3/uL (1.5-6.6); NEUTROPHILS % (AUTO) 68.3 %; PLT - PLATELET COUNT 174 10^3/uL (130-450); RED BLOOD COUNT 4.02 10^6/uL (4.70-6.10); RED CELL DISTRIBUTION WIDTH 12.2 % (12.0-15.0); WHITE BLOOD COUNT 6.5 x10^3/uL (4.8-10.8)
[2020-04-30 05:30] LABS: CALCIUM 8.2 mg/dL (8.5-10.3); CREATININE 1.4 mg/dL (0.6-1.2)
[2020-04-30] MEDS: cephALEXin 250 MG CAPSULE PO SCH (06:16)
[2020-04-30] MEDS ORDERED: POTASSIUM CHLORIDE 20 MEQ TABLET PO ONE ×3 (07:25→10:21)
[2020-04-30] MEDS ORDERED: SPIRONOLACTONE 25 MG TABLET PO SCH (08:00)
[2020-04-30] MEDS ORDERED: POTASSIUM CHLOR 10 MEQ/100 ML 10 MEQ/100 ML BAG IV SCH (08:00)
[2020-04-30] MEDS: SACCHAROMYCES BOULARDII 250 MG CAPSULE PO SCH (10:01)
[2020-04-30] MEDS: FAMOTIDINE 20 MG TABLET PO SCH (10:02)
[2020-04-30] MEDS: THIAMINE 100 MG TABLET PO SCH (10:02)
[2020-04-30] MEDS: PRENATAL VITAMIN TABLET PO SCH (10:03)
[2020-04-30] MEDS: INSULIN ASPART 300 UNIT/3 ML PEN SUBQ SCH ×2 (10:04→12:13)
--- NOTE | 2020-04-30 10:39 | Discharge Plan ---
Discharge Plan Problem Reviewed?: Yes Disposition: Home Health Service Condition: Stable Prescriptions: Spironolactone [Aldactone] 25 mg PO DAILY #30 tablet metFORMIN [Glucophage] 500 mg PO BIDWM #30 tablet cephALEXin [Keflex] 500 mg PO TID #9 capsule Potassium Chloride 20 meq PO DAILY #30 tablet.er Pnv No.95/Ferrous Fum/Folic AC [ Tablet] 1 each PO DAILY #30 tablet Lactobacillus Acidophilus [Probiotic Acidophilus] 1 each PO DAILY #5 tablet Thiamine HCl [Vitamin B-1] 100 mg PO DAILY #30 tablet Diet: Diabetic Activity Restrictions: Activity as Tolerated Shower Restrictions: No (fall precaution) Instruction Topics: Diabetes Alcohol Consumption, Diabetes 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 advise you followup with your PCP continue management. You had chronic hypokalemia, new meds Spironolactone, new potassium pill plus your home potassium for you, you also present acute on chronic kidney disease. I discussed with provider relations advocate Dr Heath already, advise you followup with him, and social secretary will help you make appointment, keep hydration at home as well. You had normal ECHO test in hospital. your previous home meds Lasix, Lisinopril, HCTZ is hold now. you were found to have UTI, antibiotics is prescribed for you to finish the treatment course. Home health PT/OT is arranged for you by for your weakness. Care Goals: stabilization and improvement of your medical conditions Assessment: discussed the car plan with you and your daughter, and answer your questions, both understood and agreed Additional Instructions or Follow Up instructions: You may Follow-up with your primary care in one week, to have potassium check, Follow-up with provider relations advocate Dr. Heath and social secretary will help you make appointment, continue home health PT/OT. Should your symptoms return or worsen, you may present ER or call 911 for help. Follow-Up Care: Home Health - PT, Home Health - OT No Smoking: If you smoke, Please STOP! Call for help. Follow-up with: Den Veras MD [Primary Care Provider] -
--- NOTE | 2020-04-30 10:57 | DISCHARGE SUMMARY ---
Discharge Summary Admit Date: 04/27/20 Discharge Date: 04/30/20 Discharging Provider: Percy Salomon Primary Care Provider: Den Tovar Condition at Discharge: Stable Discharge Disposition: Home Health Service Discharge Facility Name: home - DIAGNOSES Discharge Diagnoses with Status of Each Condition: (1) Hypokalemia Patient was found potassium 2.4 in the admission. We hold the patient home medication HCTZ and Lasix, And replaced with potassium, But the patient continue to have hypokalemia, today his potassium is 2.9. pt was given 80meq today. Retroperitoneal ultrasound reveals unremarkable. urinary potassium is elevated. pt's creatinine is 1.4 today. pt might have renal tubular acidosis. Called Dr. Heath, sweatband cutting machine operator, discussed pt's conditions and pt care, Dr. Heath will see pt in the office. consult with thermometer production worker to make appointment pt to see . Also pt will see his PCP on tomorrow and advise to have blood work and check potassium on tomorrow. Patient was prescribed a new medication spironolactone and add home potassium. Patient home medication Lasix, HCTZ, lisinopril was hold. Patient's echo was unremarkable, patient was not found to have fluid retention in the hospital course. pt has kidney disease, his Lisinopril was hold. (2) Urinary tract infection Urine culture show positive for E. coli. pt is prescribed PO antibiotics to finish the treatment course. (3) Acute kidney injury improved. pt's creatinine is 1.4 today, advise pt keep hydration at home, followup with sweatband cutting machine operator. (4) Dehydration resolved. (5) Alcohol use advise reduce and quit alcohol and pt is prescribed and Vitamin B1 (6) Diabetes mellitus pt has A1C 6.9 and elevated glucose level in the admission. Patient had diabetic education consult in hospital. pt is prescribed Metformin and followup his PCP continue management. (7)weakness Patient had PT and OT evaluation and treatment in hospital, patient is arranged for home health PT and OT, and Aide. There is one incident report pt had third degree heart block. Tele strip was reported Dr. Emiliana Esquivel charge Nurse report to me the Tele strip report with possible 3th degree block is from wrong pt, it is not from this pt. ECHO, EKG and troponin test of this pt all are unremarkable. pt denies chest pain, palpitation, shortness of breath, dizziness, or lightheaded. - HPI History of Present Illness: refer from Dr. Vallecillo's HPI on 04/27/2020 Patient is an 80-year-old male who was brought to the ED by her daughter for evaluation due to complaints of frequent/multiple falls over the past few months. He attributes this to weakness. He denies dizziness or tripping. He is normally independent of activities of daily living, he gets around his house using a walker and he still drives. He lives in [place] with his . Work-up in the ED showed him to have a creatinine of 1.8, potassium 2.5, urine analysis which was suggestive of a urinary tract infection and a lactic acid of 2.4. Patient reports dysuria and increased urinary frequency. He denied fever however he was noted to have a temperature as high as 37.7 C. He has also been complaining of chills since admission. At bedside he denies chest pain, abdominal pain, dyspnea, nausea, vomiting the rest of his history is unremarkable. - HOSPITAL COURSE Hospital Course: Patient was admitted for weakness and frequent/multiple falls. Patient denied injury from the fall. Patient was found to have UTI, acute kidney injury, severe hypokalemia. Patient was treated with IV of antibiotics and intravenous IV fluids, potassium was replaced in the hospital. Urinalysis show patient is positive for E. coli, blood culture was negative for bacteremia. Patient was also found to have a new diagnosis for diabetic. clinical trial educator was consulted for patient. Low dosage of Metformin was prescribed for patient. pt's Creatinine was down to 1.4 after hydration. pt has persistent hypokalemia although pt's potassium continue to be replaced. Call sweatband cutting machine operator Dr. Heath and discussed the care with him, and make appointment for pt to see Dr. Heath by thermometer production worker. The detailed hospital course can review on discharge diagnosis. - ALLERGIES Allergies/Adverse Reactions: Allergies Allergy/AdvReac Type Severity Reaction Status Date / Time No Known Drug Allergies Allergy Verified 04/27/20 11:29 - MEDICATIONS Home Medications: Ambulatory Orders Medication Instructions Recorded Confirmed Potassium Chloride [Klor-Con 10] 10 meq PO QID 04/27/20 04/27/20 amLODIPine [Norvasc] 5 mg PO BID 11/02/20 11/02/20 Lactobacillus Acidophilus 1 each PO DAILY #5 tablet 04/30/20 [Probiotic Acidophilus] Pnv No.95/Ferrous Fum/Folic AC 1 each PO DAILY #30 tablet 04/30/20 [ Tablet] Potassium Chloride 20 meq PO DAILY #30 tablet.er 04/30/20 Spironolactone [Aldactone] 25 mg PO DAILY #30 tablet 04/30/20 Thiamine HCl [Vitamin B-1] 100 mg PO DAILY #30 tablet 04/30/20 cephALEXin [Keflex] 500 mg PO TID #9 capsule 04/30/20 metFORMIN [Glucophage] 500 mg PO BIDWM #30 tablet 04/30/20 - PHYSICAL EXAM AT DISCHARGE General Appearance: positive: No acute distress, Alert. negative: Lethargic Eyes Bilateral: positive: Normal inspection, PERRL, No lid inflammation ENT: positive: ENT inspection nml, No signs of dehydration. negative: Purulent nasal drainage Neck: positive: Nml inspection, Thyroid nml, Trachea midline. negative: Thyromegaly, Tracheal deviation Respiratory: positive: Chest non-tender, No respiratory distress. negative: Wheezes, Rales, Rhonchi Cardiovascular: positive: Regular rate & rhythm, No murmur. negative: Tachycardia, Systolic murmur, Diastolic murmur Peripheral Pulses: positive: 2+ Abdomen: positive: Non-tender, Nml bowel sounds, No distention. negative: Tenderness Back: positive: Nml inspection. negative: CVA tenderness (R), CVA tenderness (L) Skin: positive: Color nml, No rash, Warm, Dry. negative: Cyanosis, Diaphoresis, Pallor Extremities: positive: Non-tender, Full ROM, Nml appearance. negative: Calf tenderness Neurologic/Psychiatric: positive: Oriented x3, Motor nml, Sensation nml, Mood/affect nml. negative: Weakness, Sensory loss, Facial droop, Slurred/abnml speech, Depressed mood/affect - LABS Result Diagrams: 04/30/20 05:16 04/30/20 05:16 - FOLLOW UP Follow Up: Metformin is prescribed for your new diagnosis of diabetes, your A1C is 6.9, hospital diabetes oracle fusion consultant discussed with you for the diabetes care. advise you followup with your PCP continue management. You had chronic hypokalemia, new meds Spironolactone, new potassium pill plus your home potassium for you, you also present acute on chronic kidney disease. I discussed with sweatband cutting machine operator Dr Heath already, advise you followup with him, and thermometer production worker will help you make appointment, keep hydration at home as well. You had normal ECHO test in hospital. your previous home meds Lasix, Lisinopril, HCTZ is hold now. you were found to have UTI, antibiotics is prescribed for you to finish the treatment course. Home health PT/OT is arranged for you by for your weakness. You may Follow-up with your primary care in one week, to have potassium check, Follow-up with sweatband cutting machine operator Dr. Heath and thermometer production worker will help you make appointment, continue home health PT/OT. Should your symptoms return or worsen, you may present ER or call 911 for help. - TIME SPENT Time Spent in Discharge (Minutes): 30
[2020-04-30] MEDS ORDERED: amLODIPine 5 MG TABLET PO SCH (11:00)
[2020-04-30 12:05] VITALS: BP 132/84
== END 2020-04-30 12:45 | disposition home health service (06) | DRG 690 ==
LOC: ED 11:10 → MS2 14:29
PROVIDERS: ADMIT Internal Medicine; ATTEND Nurse Practitioner Gerontology
DX: N30.01 Acute cystitis with hematuria (principal); N17.9 Acute kidney failure, unspecified; E87.6 Hypokalemia; E11.65 Type 2 diabetes mellitus with hyperglycemia; I12.9 Hypertensive chronic kidney disease with stage 1 through stage 4 chronic kidney disease, or unspecified chronic kidney disease; E11.22 Type 2 diabetes mellitus with diabetic chronic kidney disease; N18.9 Chronic kidney disease, unspecified; E86.0 Dehydration; B96.20 Unspecified Escherichia coli [E. coli] as the cause of diseases classified elsewhere; E78.00 Pure hypercholesterolemia, unspecified; N40.0 Benign prostatic hyperplasia without lower urinary tract symptoms; Z91.81 History of falling; Z79.899 Other long term (current) drug therapy; Z72.89 Other problems related to lifestyle
CPT/HCPCS: 36415; 71045; 76770; 80048; 80053; 81001; 82533; 83036; 83605; 83690; 83735; 84132; 84133; 84300; 84484; 85025; 87040; 87086; 87181; 93005; 93306; 96365; 96367; 96368; 97116; 97161; 97165; 99284; 99285; A9270; 81003

== ENCOUNTER 2020-09-24 15:20 | Outpatient (CLI) | payer MEDICARE, OTHER ==
--- NOTE | 2020-09-24 16:50 | Ultrasound Report ---
PROCEDURE: Retroperitoneal INDICATIONS: OBSTRUCTIVE NEPHROPATHY TECHNIQUE: Real-time scanning was performed of the retroperitoneal organs, with image documentation. COMPARISON: None. FINDINGS: Kidneys: Kidneys are normal in size. Right kidney measures 12.1 cm long; left kidney measures 12.4 cm long. Right renal cortical thickness is 1.0 cm; left renal cortical thickness is 0.9 cm. No hydr onephrosis is nonshadowing.. Focus of decreased echogenicity is noted within the midpole of the righ t kidney measuring 16 x 11 x 15 mm. There is a focus of increased echogenicity within the inferior po le of the left kidney measuring 6 x 4 x 13 mm. Bladder: Prevoid volume 119 cc, post void residual 50 cc. Bilateral ureteral jets are present. IMPRESSION: 1. No obstruction. 2. Focus of increased echogenicity within the inferior left renal pole. 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 However, nonshadowing small stone cannot be definitive ly excluded. Reviewed by: Aundrea Field MD on 09/24/2020 4:49 PM PDT Approved by: Aundrea Field MD on 09/24/2020 4:49 PM PDT Station ID: [id number]
== END 2020-09-24 15:21 | disposition home or self-care (01) ==
LOC: DI 15:20
PROVIDERS: ATTEND Internal Medicine Nephrology
DX: N13.8 Other obstructive and reflux uropathy (principal); E87.6 Hypokalemia
CPT/HCPCS: 36415; 84132

== ENCOUNTER 2020-09-24 15:58 | Outpatient (CLI) | payer MEDICARE, OTHER | END 2020-09-24 15:59 | disposition home or self-care (01) | LOC: LAB 15:58 | PROVIDERS: ATTEND Internal Medicine Nephrology | DX: E87.6 Hypokalemia (principal) | CPT/HCPCS: 36415; 84132 ==

== ENCOUNTER 2021-05-07 09:57 | Emergency (ER) | payer MEDICARE, OTHER ==
[2021-05-07] MEDS ORDERED: TETANUS/DIPHTHERIA/PERTUSSIS 0.5 ML SYRINGE IM ONE (10:09)
--- NOTE | 2021-05-07 10:11 | ED Physician Documentation ---
PD HPI LOWER EXT INJURY - Stated complaint Stated Complaint: FALL, ANKLE INJURRIES - History obtained from History obtained from: Patient - Additional information Additional information: 81-year-old gentleman with chronic kidney disease and unknown tetanus status had a simple trip and fall this morning slipping on a rug and injured both ankles. He is able to walk and bear weight but with difficulty due to pain. Declines pain medication on initial evaluation. No other injuries except for a skin tear on the right arm. Review of Systems Constitutional: reports: Reviewed and negative Cardiac: reports: Reviewed and negative Respiratory: reports: Reviewed and negative PD PAST MEDICAL HISTORY - Past Medical History Cardiovascular: Hypertension, High cholesterol Respiratory: None Neuro: Peripheral neuropathy Endocrine/Autoimmune: Type 2 diabetes GI: None : Benign prostate hypertrophy Psych: None Musculoskeletal: None Derm: None - Past Surgical History Derm: Other - Present Medications Home Medications: Ambulatory Orders Medication Instructions Recorded Confirmed Potassium Chloride [Klor-Con 10] 10 meq PO QID 04/27/20 05/07/21 amLODIPine [Norvasc] 5 mg PO BID 04/27/20 05/07/21 Lactobacillus Acidophilus 1 each PO DAILY #5 tablet 04/30/20 05/07/21 [Probiotic Acidophilus] Pnv No.95/Ferrous Fum/Folic AC 1 each PO DAILY #30 tablet 04/30/20 05/07/21 [ Tablet] Thiamine HCl [Vitamin B-1] 100 mg PO DAILY #30 tablet 04/30/20 05/07/21 Furosemide [Lasix] 20 mg PO DAILY 05/07/21 05/07/21 Furosemide [Lasix] 40 mg PO DAILY 05/07/21 05/07/21 Tamsulosin [Flomax] 1 cap PO DAILY 05/07/21 05/07/21 - Allergies Allergies/Adverse Reactions: Allergies Allergy/AdvReac Type Severity Reaction Status Date / Time No Known Drug Allergies Allergy Verified 04/27/20 11:29 - Social History Does the pt smoke?: No Smoking Status: Never smoker - POLST Patient has POLST: No POLST Status: Full Code PD ED PE NORMAL - Vitals Vital signs reviewed: Yes - General General: Alert and oriented X 3, No acute distress - Neck Neck: Supple, no meningeal sign, No bony TTP - Derm Derm: Normal color, Warm and dry - Extremities Extremities: Other (He has a skin tear the size of a half dollar on the ulnar side of the right forearm without cellulitis, bony tenderness or limited range of motion. Venous stasis changes of both legs with mild tenderness of both lateral malleoli, no deformities or other tenderness) - Neuro Neuro: Alert and oriented X 3, Normal speech Results - Vitals Vitals: Vital Signs - 24 hr 05/07/21 05/07/21 10:13 11:19 Temperature 36.9 C Heart Rate 107 H 106 H Respiratory 18 Rate Blood Pressure 142/92 H 139/89 H O2 Saturation 97 96 Oxygen O2 Source Room air PD MEDICAL DECISION MAKING - ED course ED course: 81-year-old gentleman with bilateral ankle sprains. Also a skin tear on the right arm. Tetanus was updated. X-rays of both ankles were negative for fracture. Departure - Departure Disposition: 01 Home, Self Care Clinical Impression: History of sprain of both ankles Condition: Good Record reviewed to determine appropriate education?: Yes Instructions: ED Sprain Ankle W X Ray Comments: Tylenol as needed for pain, follow-up with your doctor in a week if not better, return for new or worsening symptoms. Discharge Date/Time: 05/07/21 11:21
--- NOTE | 2021-05-07 10:49 | XRAY Report ---
PROCEDURE: Ankle 3 View BILAT INDICATIONS: ankle injuries TECHNIQUE: 3 views of each ankle were acquired. COMPARISON: None FINDINGS: Bones: The bones are diffusely osteopenic. No fractures or dislocations. Ankle mortise is normally a ligned. No suspicious bony lesions. Soft tissues: No tibiotalar joint effusion. Achilles tendon appears normal. Diffuse ankle edema bi laterally. IMPRESSION: Diffuse ankle edema bilaterally. Diffuse osteopenia. No gross fractures identified. If clinical suspicion and/or symptoms persist, further assessment with repeat plain films or advanced imaging (e.g., CT, MRI, or bone scan) may be helpful for further assessment. Reviewed by: Horacio Tolentino MD on 05/07/2021 10:48 AM [facility] Approved by: Horacio Tolentino MD on 05/07/2021 10:48 AM [facility] Station ID: [id number]
[2021-05-07 11:21] VITALS: BP 139/89
== END 2021-05-07 11:21 | disposition home or self-care (01) ==
LOC: ED 09:57
DX: S93.402A Sprain of unspecified ligament of left ankle, initial encounter (principal); S93.401A Sprain of unspecified ligament of right ankle, initial encounter; S51.811A Laceration without foreign body of right forearm, initial encounter; W01.0XXA Fall on same level from slipping, tripping and stumbling without subsequent striking against object, initial encounter; Z23 Encounter for immunization; I12.9 Hypertensive chronic kidney disease with stage 1 through stage 4 chronic kidney disease, or unspecified chronic kidney disease; E11.22 Type 2 diabetes mellitus with diabetic chronic kidney disease; N18.9 Chronic kidney disease, unspecified; E11.42 Type 2 diabetes mellitus with diabetic polyneuropathy; I87.8 Other specified disorders of veins
CPT/HCPCS: 90471; 99282; 99283

== ENCOUNTER 2021-06-19 15:35 | Emergency (ER) | payer MEDICARE, OTHER ==
[2021-06-19 15:43] VITALS: BP 154/71
[2021-06-19] MEDS ORDERED: LIDOCAINE TOPICAL 4% 50 ML BOTTLE TOP ONE (15:57)
[2021-06-19] MEDS ORDERED: LIDOCAINE MPF 2%-EPI 1:200000 20 ML VIAL ONE (16:00)
--- NOTE | 2021-06-19 16:36 | ED Physician Documentation ---
PD HPI LOWER EXT INJURY - Stated complaint Stated Complaint: LT ABEL LAC - Chief complaint Chief Complaint: Laceration - History obtained from History obtained from: Patient - History of Present Illness PD HPI LOW EXT INJURY LOCATION: Left, Lower leg Type of injury: Blunt / blow Where injury occurred: Home Timing - onset: Today Timing - duration: Minutes Timing - details: Abrupt onset, Still present Improved by: Rest, Immobilization Worsened by: Moving, Palpating Associated symptoms: Numbness, Swelling, Discolored. No: Weakness, Tingling Contributing factors: Other (has venous stasis disease). No: Anticoagulated Similar symptoms before: Diagnosis (thin skin laceration) Recently seen: Not recently seen - Additional information Additional information: 81-year-old male was attempting to get into his car that has some side rails and he stepped up onto the side rail his foot slipped and he fell with his weight against his calf tore the skin on the lateral aspect of his left calf. He has had multiple thin skin tears previously never on his calf. He does use compression stockings when he can get somebody to put them on and he does sleep in recliner sometimes with his legs dangling. He has a peripheral neuropathy and is not feeling much pain from this skin tear. Review of Systems Constitutional: denies: Fever Nose: denies: Congestion Respiratory: denies: Cough GI: denies: Vomiting Skin: reports: Laceration (s) PD PAST MEDICAL HISTORY - Past Medical History Cardiovascular: Hypertension, High cholesterol Respiratory: None Neuro: Peripheral neuropathy Endocrine/Autoimmune: Type 2 diabetes GI: None : Benign prostate hypertrophy Psych: None Musculoskeletal: None Derm: None - Past Surgical History Past Surgical History: Yes Derm: Other - Present Medications Home Medications: Ambulatory Orders Medication Instructions Recorded Confirmed Potassium Chloride [Klor-Con 10] 10 meq PO QID 04/27/20 05/07/21 amLODIPine [Norvasc] 5 mg PO BID 04/27/20 05/07/21 Lactobacillus Acidophilus 1 each PO DAILY #5 tablet 04/30/20 05/07/21 [Probiotic Acidophilus] Pnv No.95/Ferrous Fum/Folic AC 1 each PO DAILY #30 tablet 04/30/20 05/07/21 [ Tablet] Thiamine HCl [Vitamin B-1] 100 mg PO DAILY #30 tablet 04/30/20 05/07/21 Furosemide [Lasix] 20 mg PO DAILY 05/07/21 05/07/21 Furosemide [Lasix] 40 mg PO DAILY 05/07/21 05/07/21 Tamsulosin [Flomax] 1 cap PO DAILY 05/07/21 05/07/21 - Allergies Allergies/Adverse Reactions: Allergies Allergy/AdvReac Type Severity Reaction Status Date / Time No Known Drug Allergies Allergy Verified 06/19/21 15:43 - Social History Does the pt smoke?: No Smoking Status: Never smoker Does the pt drink ETOH?: Yes Does the pt have substance abuse?: No - Immunizations Immunizations are current?: Yes - POLST Patient has POLST: No POLST Status: Full Code PD ED PE NORMAL - Vitals Vital signs reviewed: Yes (hypertensive ) - General General: Alert and oriented X 3, No acute distress, Well developed/nourished - HEENT HEENT: Atraumatic, PERRL - Respiratory Respiratory: No respiratory distress - Derm Derm: Normal color, Warm and dry, Other (venous stasis is present to the bilateral lower ext. ) - Extremities Extremities: No deformity, Other (marked pitting swelling with erthema to the calf from the knee to the ankle similar bilat. 9cm X 9cm triangular flap with a 4cm X 2cm portion of free skin at the apex. ) - Neuro Neuro: Alert and oriented X 3, fisher lobster 2-12 intact, No motor deficit, Normal speech Eye Opening: Spontaneous Motor: Obeys Commands Verbal: Oriented GCS Score: 15 - Psych Psych: Normal mood, Normal affect Results - Vitals Vitals: Vital Signs - 24 hr 06/19/21 15:39 Temperature 36.6 C Heart Rate 87 Respiratory 18 Rate Blood Pressure 154/71 H O2 Saturation 98 Oxygen O2 Source Room air Procedures - Laceration (location) left calf Length in cm: 18 Wound type: Flap, Into subcut fat, Clean Neurovascular status: Motor intact, Vascular intact Anesthesia: Volume - enter ml (10ml of 4% lidocaine solution applied to the open portion of the wound.) Wound preparation: Hibiclens, Irrigated copiously NS, Wound explored, To the base, Multiple flaps aligned Skin layer closure: Nylon, Interrupted, Size #-0 - enter number (4-0) Other: Patient tolerated well, No complications, Neurovascular intact, Dressing applied, Tetanus UTD PD MEDICAL DECISION MAKING - ED course Complexity details: re-evaluated patient, considered differential, d/w patient ED course: 81-year-old male with a thin skin laceration to the edematous lower extremity with venous stasis presents. I was able to replace the skin over the defect and with compression of the wound was able to get the flap to fit nicely. There is a section of free graft at the tip of the laceration that may not adhere. I discussed with the patient that he will have an extended period of time for healing with this and may need to see the brooke in the wound clinic. I have asked him to go in to see Dr. Veras in 7 to 10 days for suture removal. Did discuss with the patient the use of Chad wrap for treatment of the venous stasis disease. Departure - Departure Disposition: 01 Home, Self Care Clinical Impression: Flap laceration of lower extremity Condition: Stable Instructions: ED Laceration Ext Sutr Stap Tape Follow-Up: Den Veras MD [Physician No Access] - Comments: Edward, today it looks like you have a large flap laceration on your calf and this is in an area that does not heal up well. You may need to have follow-up with the wound clinic. There is a portion of the wound that is covered by a free skin graft that may not adhere. Follow-up with Dr. Veras in 7 to 10 days for suture removal.
[2021-06-19] MEDS ORDERED: BACITRACIN ZINC OINT 1 PACKET TOP STA (16:48)
== END 2021-06-19 17:03 | disposition home or self-care (01) ==
LOC: ED 15:35
DX: S81.812A Laceration without foreign body, left lower leg, initial encounter (principal); V48.4XXA Person boarding or alighting a car injured in noncollision transport accident, initial encounter; Y92.9 Unspecified place or not applicable; I87.8 Other specified disorders of veins; E11.42 Type 2 diabetes mellitus with diabetic polyneuropathy; N40.0 Benign prostatic hyperplasia without lower urinary tract symptoms; I10 Essential (primary) hypertension; E78.00 Pure hypercholesterolemia, unspecified
CPT/HCPCS: 12005; 99281; 99282; A9270

== ENCOUNTER 2022-02-22 18:15 | Outpatient (CLI) | payer MEDICARE, OTHER | END 2022-02-22 18:16 | disposition critical access hospital (66) | LOC: EMS 18:15 | DX: M25.561 Pain in right knee (principal); R60.0 Localized edema | CPT/HCPCS: A0425; A0429 ==

== ENCOUNTER 2022-02-22 18:35 | Inpatient (IN) | payer MEDICARE, OTHER ==
--- NOTE | 2022-02-22 19:29 | ED Physician Documentation ---
History of Present Illness - Stated complaint Stated Complaint: R KNEE PX - Chief complaint Chief Complaint: Ext Problem - History obtained from History obtained from: Patient, Family, EMS - Additonal information Additional information: 82-year-old gentleman with history of known kidney stones, renal dysfunction and diet managed diabetes presents with ongoing pedal edema that is worse over the last week associated with right knee pain that is especially present on standing that has progressed over the last week or so. He has no history of heart problems and no history of CHF. He denies shortness of breath. He is accompanied by his daughter who is worried that he will fall if he tries to bear weight because of the knee pain. He has frequent kidney stones which are related to a known large stone that has not been imaged in 8 months. He recently had cardiac clearance to see Dr. Johnson and have the stone removed but the date is not set. Review of Systems Ten Systems: 10 systems reviewed and negative Constitutional: denies: Fever, Chills Cardiac: reports: Reviewed and negative Respiratory: reports: Reviewed and negative GI: reports: Reviewed and negative : reports: Reviewed and negative PD PAST MEDICAL HISTORY - Past Medical History Cardiovascular: Hypertension, High cholesterol Respiratory: None Neuro: Peripheral neuropathy Endocrine/Autoimmune: Type 2 diabetes GI: None : Benign prostate hypertrophy Psych: None Musculoskeletal: None Derm: None - Past Surgical History Past Surgical History: Yes Derm: Other - Present Medications Home Medications: Ambulatory Orders Medication Instructions Recorded Confirmed Potassium Chloride [Klor-Con 10] 10 meq PO QID 04/27/20 05/07/21 amLODIPine [Norvasc] 5 mg PO BID 04/27/20 05/07/21 Lactobacillus Acidophilus 1 each PO DAILY #5 tablet 04/30/20 05/07/21 [Probiotic Acidophilus] Pnv No.95/Ferrous Fum/Folic AC 1 each PO DAILY #30 tablet 04/30/20 05/07/21 [ Tablet] Thiamine HCl [Vitamin B-1] 100 mg PO DAILY #30 tablet 04/30/20 05/07/21 Furosemide [Lasix] 20 mg PO DAILY 05/07/21 05/07/21 Furosemide [Lasix] 40 mg PO DAILY 05/07/21 05/07/21 Tamsulosin [Flomax] 1 cap PO DAILY 05/07/21 05/07/21 - Allergies Allergies/Adverse Reactions: Allergies Allergy/AdvReac Type Severity Reaction Status Date / Time No Known Drug Allergies Allergy Verified 06/19/21 15:43 - Social History Does the pt smoke?: No Smoking Status: Never smoker Does the pt drink ETOH?: Yes Does the pt have substance abuse?: No - Immunizations Immunizations are current?: Yes - POLST Patient has POLST: No POLST Status: Full Code PD ED PE NORMAL - Vitals Vital signs reviewed: Yes - General General: Alert and oriented X 3, No acute distress - HEENT HEENT: PERRL, EOMI - Neck Neck: Supple, no meningeal sign, No bony TTP - Cardiac Cardiac: RRR, No murmur - Respiratory Respiratory: No respiratory distress, Clear bilaterally - Abdomen Abdomen: Non tender - Back Back: No CVA TTP, No spinal TTP - Derm Derm: Normal color, Warm and dry - Extremities Extremities: Other (4+ pitting pedal edema with venous stasis changes, slight asymmetry with the right being worse than the left. I am unable to elicit any t enderness the right knee. It is not warm or red.) - Neuro Neuro: Alert and oriented X 3, Normal speech Results - Vitals Vitals: Vital Signs - 24 hr 02/22/22 02/22/22 02/22/22 18:52 19:29 19:52 Temperature 36.8 C 36.8 C Heart Rate 78 78 72 Respiratory 21 21 18 Rate Blood Pressure 143/85 H 143/85 H 162/79 H O2 Saturation 96 96 95 02/22/22 02/22/22 21:33 23:00 Temperature Heart Rate 63 63 Respiratory 17 19 Rate Blood Pressure 156/85 H O2 Saturation 96 95 Oxygen O2 Source Room air - Labs Labs: Laboratory Tests 02/22/22 02/22/22 19:42 19:42 WBC 8.0 RBC 4.60 L Hgb 14.8 Hct 43.0 MCV 93.5 MCH 32.2 H MCHC 34.4 RDW 13.1 Plt Count 164 MPV 11.1 Neut # (Auto) 5.5 Lymph # (Auto) 1.5 Boundary # (Auto) 0.7 Eos # (Auto) 0.2 Baso # (Auto) 0.1 Absolute Nucleated RBC 0.00 Nucleated RBC % 0.0 Sodium 135 Potassium 3.7 Chloride 100 L Carbon Dioxide 26 Anion Gap 9.0 BUN 28 H Creatinine 1.5 H Estimated GFR (MDRD) 45 L Glucose 175 H Calcium 9.1 Magnesium 2.2 Total Bilirubin 0.4 AST 20 ALT 30 Alkaline Phosphatase 68 Total Protein 6.8 Albumin 3.7 Globulin 3.1 Albumin/Globulin Ratio 1.2 PD MEDICAL DECISION MAKING - ED course ED course: This is an 82-year-old gentleman with reportedly no heart disease who has a known large kidney stone and has worsening anasarca making him now nonfunctional and unable to bear weight. Differential diagnosis also included DVT but a Doppler of both legs was negative as well as right knee pathology and an x-ray there was negative. He has mildly worsening renal function but his creatinine has only gone up a bit to 1.5. His daughter did not feel like she could take him home and that seems reasonable as he is now nonfunctional and unable to ambulate due to his anasarca and he is administered Lasix 80 mg IV here and Dr. Wayne accepts for observation at approximately 2245. Departure - Departure Disposition: ED Place in Observation Clinical Impression: Anasarca, Inability to ambulate due to right knee, Bilateral leg pain Condition: Stable
[2022-02-22 19:46] LABS: BASOPHILS # (AUTO) 0.1 10^3/uL (0.0-0.1); BASOPHILS % (AUTO) 0.9 %; EOSINOPHILS # (AUTO) 0.2 10^3/uL (0.0-0.7); EOSINOPHILS % (AUTO) 2.7 %; HGB - HEMOGLOBIN 14.8 g/dL (14.0-18.0); LYMPHOCYTES # (AUTO) 1.5 10^3/uL (1.5-3.5); LYMPHOCYTES % (AUTO) 18.5 %; MEAN CORPUSCULAR HEMOGLOBIN 32.2 pg (27.0-31.0); MEAN CORPUSCULAR HGB CONC 34.4 g/dL (32.0-36.0); MEAN CORPUSCULAR VOLUME 93.5 fL (80.0-94.0); MEAN PLATELET VOLUME 11.1 fL (7.4-11.4); MONOCYTES # (AUTO) 0.7 10^3/uL (0.0-1.0); MONOCYTES % (AUTO) 8.7 %; NEUTROPHILS # (AUTO) 5.5 10^3/uL (1.5-6.6); NEUTROPHILS % (AUTO) 68.7 %; PLT - PLATELET COUNT 164 10^3/uL (130-450); RED CELL DISTRIBUTION WIDTH 13.1 % (12.0-15.0)
[2022-02-22 19:58] LABS: ALBUMIN 3.7 g/dL (3.2-5.5); ALBUMIN/GLOBULIN RATIO 1.2 (1.0-2.2); BILIRUBIN,TOTAL 0.4 mg/dL (0.2-1.0); CALCIUM 9.1 mg/dL (8.5-10.3); CREATININE 1.5 mg/dL (0.6-1.2); MAGNESIUM 2.2 mg/dL (1.7-2.8); POTASSIUM 3.7 mmol/L (3.5-5.0); TOTAL PROTEIN 6.8 g/dL (6.7-8.2)
--- NOTE | 2022-02-22 21:36 | Ultrasound Report ---
PROCEDURE: Duplex Ext Veins Bilateral INDICATIONS: Bilateral leg pain TECHNIQUE: Real-time imaging, as well as color and pulse Doppler interrogation, were performed of the deep veins of both legs from the inguinal ligament to the popliteal fossa. COMPARISON: None. FINDINGS: The deep veins are normally compressible, and free of intraluminal thrombus. Color and pu lse Doppler demonstrate normal phasic intravascular flow. There is normal augmentation response to d istal compression maneuver. The calf veins were not well seen secondary to body habitus. There are bilateral small knee joint effusions. IMPRESSION: 1. No evidence of deep venous thrombosis in the right or left lower extremity. Reviewed by: Junior Mazariegos MD on 02/22/2022 9:35 PM PDT Approved by: Junior Mazariegos MD on 02/22/2022 9:35 PM PDT Station ID: [id number]
--- NOTE | 2022-02-22 21:37 | XRAY Report ---
PROCEDURE: Knee 4 View RT INDICATIONS: knee pain TECHNIQUE: 5 views of the right knee were acquired. COMPARISON: None. FINDINGS: Bones: No fractures or dislocations. No suspicious bony lesions. Soft tissues: There is a small joint effusion. There is generalized subcutaneous cutaneous edema. N o suspicious soft tissue calcifications. IMPRESSION: 1. No fracture or dislocation. Reviewed by: Junior Mazariegos MD on 02/22/2022 9:36 PM PDT Approved by: Junior Mazariegos MD on 02/22/2022 9:36 PM PDT Station ID: [id number]
--- NOTE | 2022-02-22 21:58 | CT Report ---
PROCEDURE: Abdomen/Pelvis WO INDICATIONS: renal dysfuntction known stone TECHNIQUE: Noncontrast 5 mm thick sections acquired from the diaphragms to the symphysis. 5 mm coronal and sagi ttal reformats were then performed. For radiation dose reduction, the following was used: automated exposure control, adjustment of mA and/or kV according to patient size. COMPARISON: Retroperitoneal ultrasound 09/24/2020. FINDINGS: Image quality: Excellent. Lung bases: There is atelectasis and scarring in the lung bases. Heart: Heart is normal in size. There is a small hiatal hernia. URINARY: Right Kidney and Ureter: No stones or hydronephrosis. There is nonspecific mild perinephric strandi ng. There is renal cortical thinning. No hydroureter. Left Kidney and Ureter: There is a nonobstructing stone within the inferior pole of the left kidney measuring up to 0.8 cm. This demonstrates attenuation values of approximately 900-1000 Hounsfield un its. There is mild nonspecific perinephric stranding. There is renal cortical thinning. No hydronephr osis. No hydroureter. Bladder: Normal wall thickness. No stones. ABDOMEN: Liver: Noncontrast evaluation of the liver demonstrates no discrete mass. Gallbladder: Within normal limits without calcified gallstones. Biliary ducts: No biliary ductal dilatation. Pancreas: Unremarkable. Spleen: Normal in size. Adrenal Glands: No adrenal nodules. Stomach and Bowel: Stomach, small bowel loops, and colon are normal in caliber and wall thickness. T he appendix is normal in appearance. No evidence of diverticulitis. Peritoneum: No abnormal intraperitoneal fluid. No free air. Ventral Wall: No hernia. Abdominal Nodes: No retroperitoneal or mesenteric adenopathy by size criteria. Vessels: Aorta and inferior vena cava are normal in size. PELVIS: Pelvic Organs: Unremarkable. Pelvic Nodes: No enlarged lymph nodes. Miscellaneous: There is a small fat-containing right inguinal hernia. Bones:There is a superior plate compression deformity of the T12 vertebral body with up to approxima tely 30% loss of height of indeterminate acuity. Superior plate scalloping is also demonstrated withi n the L1 vertebral body. IMPRESSION: 1. Left nephrolithiasis without evidence of obstructive uropathy. 2. No evidence of appendicitis. 3. Mild superior plate compression deformities of the T12 and L1 vertebral bodies of indeterminate ac uity. Reviewed by: Junior Mazariegos MD on 02/22/2022 9:56 PM PDT Approved by: Junior Mazariegos MD on 02/22/2022 9:56 PM PDT Station ID: [id number]
[2022-02-22] MEDS ORDERED: FUROSEMIDE 40 MG/4 ML VIAL IVP STA (22:56)
[2022-02-22] MEDS ORDERED: ACETAMINOPHEN 325 MG TABLET PO PRN (23:48)
[2022-02-22] MEDS ORDERED: ONDANSETRON 4 MG/2 ML VIAL IVP PRN (23:48)
--- NOTE | 2022-02-22 23:57 | HISTORY & PHYSICAL EXAMINATION ---
History of Present Illness - Admitted From Admitted From:: ED - History Obtained From History obtained from: ED provider and the patient and his daughtrer, at bedside - History of Present Illness HPI Comment/Other: This is an 82-year-old white male with a history of diet-controlled diabetes, CKD, BPH and UTIs from a chronic kidney stone. He had Cardiology clearance in September to have the stone eventually removed by Urology, which has never been scheduled yet. The patient presented with worsening leg edema over the past 1 week. He normally has edema to his ankles and takes daily Lasix but (his daughter states) he has been told to drink alot of water for the last 6mos to "mobilize the edema", not for his CKD or the kidney stone. His leg swelling went up to the knees over the past week and legs were so edematous and tense during the last 2 days, that he could not bend them to get out of bed and also developed pain in the right knee with weight bearing, preventing his ambulation for 2 days. He denies shortness of breath, orthopnea, chest pain, palpitations or syncope. He has been compliant with his medications. He presented due to even higher leg swelling and inability to bend his knees to transfer or get out of bed. In the ED he underwent ultrasound and DVT was ruled out in both legs. The right knee was not felt to have inflammation and was not tapped, but rather was felt to be stiff from the marked leg edema, now up to his groin. He was given a dose of Lasix 80 mg IV x1. The ED provider reached out to the Hospitalist team to place him in Observation for further and more aggressive IV diuretic treatment. History - Past Medical History Cardiovascular: reports: Hypertension, High cholesterol Respiratory: reports: None Neuro: reports: Peripheral neuropathy Endocrine/Autoimmune: reports: Type 2 diabetes GI: reports: None : reports: Benign prostate hypertrophy Psych: reports: None Musculoskeletal: reports: None Derm: reports: None MRSA Hx?: No - Past Surgical History Derm: reports: Other - Family & Social History Family History Comment/Other: His father at age 72 from an unspecified heart condition. His mother at age 92 from a ruptured abdominal aortic aneurysm. he has 2 children, a son and a daughter, who are healthy. Living arrangement: At home Living Situation: With spouse/s.o. Social History Notes: He has a daughter who lives nearby. He denies tobacco use ever or any recreational substance use. He drinks 2 drinks of whiskey daily. He denied ever having withdrawal symptoms. He is usually independent of activities of daily living but uses a walker and bars installed in the house. He & his (who has dementia) have a caregiver who comes twice a day. He no longer drives. - Substance History Use: Uses substance without health or social issues: Alcohol - POLST Patient has POLST: No POLST Status: Full Code Meds/Allgy - Home Medications Home Medications: Ambulatory Orders Medication Instructions Recorded Confirmed Potassium Chloride [Klor-Con 10] 10 meq PO UD 04/27/20 02/23/22 Lactobacillus Acidophilus 1 each PO DAILY #5 tablet 04/30/20 02/23/22 [Probiotic Acidophilus] Pnv No.95/Ferrous Fum/Folic AC 1 each PO DAILY #30 tablet 04/30/20 02/23/22 [ Tablet] Thiamine HCl [Vitamin B-1] 100 mg PO DAILY #30 tablet 04/30/20 02/23/22 Furosemide [Lasix] 40 mg PO DAILY 05/07/21 02/23/22 Tamsulosin [Flomax] 1 cap PO DAILY 05/07/21 02/23/22 diltiaZEM CD [Cardizem Cd] 180 mg PO DAILY 02/23/22 - Allergies Allergies/Adverse Reactions: Allergies Allergy/AdvReac Type Severity Reaction Status Date / Time No Known Drug Allergies Allergy Verified 06/19/21 15:43 Exam - Vital Signs Reviewed Vital Signs: Yes Vital Signs: Vital Signs x48h Temp Pulse Resp BP Pulse Ox 02/22/22 23:00 63 19 156/85 H 95 02/22/22 21:33 63 17 96 02/22/22 19:52 72 18 162/79 H 95 02/22/22 19:29 36.8 C 78 21 143/85 H 96 02/22/22 18:52 36.8 C 78 21 143/85 H 96 - Physical Exam General Appearance: positive: No acute distress, Alert Eyes Bilateral: positive: Normal inspection, EOMI ENT: positive: ENT inspection nml, No signs of dehydration Neck: positive: Nml inspection, Other (Obese neck and cannot eval JVP) Respiratory: positive: No respiratory distress, Breath sounds nml Cardiovascular: positive: Regular rate & rhythm, No murmur Abdomen: positive: Non-tender, Nml bowel sounds, Other (Obese with pannus, hypertympanic) Skin: positive: Warm, Dry Extremities: positive: Other (4+ edema to groins bilaterally, R>L. Purple venous stasis changes of shins.) Neurologic/Psychiatric: positive: Oriented x3 (Non-focal except numbness of feet) Conclusion/Plan - Problem List (1) Anasarca Conclusion/Plan: Patient is on chronic Lasix but says he has never been told he has congestive heart failure. He had an Echo done in September by the Etl Consultant who saw him for clearance before the kidney stone procedure and he was "cleared". However, for the last 6 mos, he was told to drink about a L of fluid a day, the daughter reports. He denies salt use. Will order IV twice daily diuretics, follow I's and O's and daily weights. We will restrict his total fluid intake to 2 L/day. Follow BUN/creat daily. Will obtain BNP, EKG and a chest x-ray (which were not ordered in ED) Will obtain an Echo to evaluate LVEF and diastolic function (in 2019, an Echo showed he had preserved LVEF) (2) Inability to ambulate due to right knee Conclusion/Plan: This did not appear to be warm but probably is affected by the anasarca of both legs. Because of the anasarca plus this pain, he has not been walking at home for about 2 days. Will continue with plan for aggressive diuresis while he is here. Pain meds if needed (3) Diabetes mellitus Conclusion/Plan: He has diet-controlled diabetes. Will order a diabetic diet, fingerstick checks, sliding scale insulin coverage, check A1c value with a.m. labs. (4) CKD (chronic kidney disease) Conclusion/Plan: Patient has a baseline elevation of creatinine at 1.4-1.5. Avoid nephrotoxins. Follow BMP daily (5) BPH (benign prostatic hyperplasia) Conclusion/Plan: We will continue his tamsulosin - Lab Results Fish Bones: 02/23/22 05:16 02/23/22 05:16 - Diagnostic Imaging Results Diagnostic Imaging Results: positive: Final report reviewed
--- NOTE | 2022-02-23 00:15 | XRAY Report ---
PROCEDURE: Chest 1 View X-Ray INDICATIONS: CHF suspected due to anasarca TECHNIQUE: One view of the chest was acquired. COMPARISON: 04/29/2020 FINDINGS: Surgical changes and devices: None. Lungs and pleura: There is increased pulmonary vascular prominence consistent with pulmonary edema. Confluent opacities peripherally in the right lung base are consistent with atelectasis or developing consolidation. No pleural effusions or pneumothorax. Mediastinum: Mediastinal contours appear unchanged. Heart size is mildly enlarged. Bones and chest wall: No suspicious bony lesions. Overlying soft tissues appear unremarkable. IMPRESSION: 1. Increased pulmonary edema. 2. Confluent peripheral opacities in the right lung base consistent with atelectasis or developing co nsolidation. Reviewed by: Junior Mazariegos MD on 02/23/2022 12:14 AM PDT Approved by: Junior Mazariegos MD on 02/23/2022 12:14 AM PDT Station ID: [id number]
[2022-02-23 00:22] LABS: B. PARAPERTUSSIS- RESP PCR PAN NOT DETECTED; B. PERTUSSIS- RESP PCR PANEL NOT DETECTED; C. PNEUMONIAE- RESP PCR PANEL NOT DETECTED; CORONAVIRUS 229E-RESP PCR NOT DETECTED; CORONAVIRUS HKU1-RESP PCR NOT DETECTED; CORONAVIRUS NL63-RESP PCR NOT DETECTED; CORONAVIRUS OC43-RESP PCR NOT DETECTED; HUMAN METAPNEUMOVIRUS NOT DETECTED; INFLUENZA A- RESP PCR PANEL NOT DETECTED; INFLUENZA B - RESP PCR PANEL NOT DETECTED; M. PNEUMONIAE- RESP PCR PANEL NOT DETECTED; PARAINFLUENZA VIRUS 1 NOT DETECTED; PARAINFLUENZA VIRUS 2 NOT DETECTED; PARAINFLUENZA VIRUS 3 NOT DETECTED; PARAINFLUENZA VIRUS 4 NOT DETECTED; RHINOVIRUS/ENTEROVIRUS NOT DETECTED; RSV- RESP PCR PANEL NOT DETECTED; SARS-CoV-2 -RESP PCR PANEL NOT DETECTED
[2022-02-23] MEDS: SODIUM CHLORIDE FLUSH 0.9% 10 ML SYRINGE IVP SCH ×3 (01:32→16:33)
[2022-02-23 05:42] LABS: BASOPHILS # (AUTO) 0.1 10^3/uL (0.0-0.1); BASOPHILS % (AUTO) 1.2 %; EOSINOPHILS # (AUTO) 0.4 10^3/uL (0.0-0.7); EOSINOPHILS % (AUTO) 5.3 %; HCT - HEMATOCRIT 44.6 % (42.0-52.0); HGB - HEMOGLOBIN 15.2 g/dL (14.0-18.0); LYMPHOCYTES # (AUTO) 1.3 10^3/uL (1.5-3.5); LYMPHOCYTES % (AUTO) 19.5 %; MEAN CORPUSCULAR HEMOGLOBIN 31.8 pg (27.0-31.0); MEAN CORPUSCULAR HGB CONC 34.1 g/dL (32.0-36.0); MEAN CORPUSCULAR VOLUME 93.3 fL (80.0-94.0); MEAN PLATELET VOLUME 12.1 fL (7.4-11.4); MONOCYTES # (AUTO) 0.6 10^3/uL (0.0-1.0); MONOCYTES % (AUTO) 9.5 %; NEUTROPHILS # (AUTO) 4.2 10^3/uL (1.5-6.6); PLT - PLATELET COUNT 137 10^3/uL (130-450); RED BLOOD COUNT 4.78 10^6/uL (4.70-6.10); WHITE BLOOD COUNT 6.6 x10^3/uL (4.8-10.8)
[2022-02-23 05:56] LABS: CALCIUM 8.7 mg/dL (8.5-10.3); CREATININE 1.2 mg/dL (0.6-1.2); MAGNESIUM 2.1 mg/dL (1.7-2.8); PHOSPHORUS 3.5 mg/dL (2.5-4.6)
[2022-02-23] MEDS: FUROSEMIDE 40 MG/4 ML VIAL IVP SCH ×2 (06:40→14:51)
[2022-02-23] MEDS: SODIUM CHLORIDE FLUSH 0.9% 10 ML SYRINGE IVP PRN (06:41)
[2022-02-23] MEDS: HEPARIN 5,000 UNIT/ML VIAL SUBQ SCH ×2 (08:17→22:06)
[2022-02-23] MEDS: TAMSULOSIN 0.4 MG CAPSULE PO SCH (08:19)
[2022-02-23] MEDS: polyethylene glycoL 3350 17 GM PACKET PO SCH (08:19)
[2022-02-23] MEDS: POTASSIUM CHLORIDE 10 MEQ CAPSULE PO SCH (08:20)
[2022-02-23] MEDS: INSULIN LISPRO 300 UNIT/3 ML PEN SUBQ SCH ×4 (08:20→22:06)
[2022-02-23 08:43] LABS: ESTIMATED AVERAGE GLUCOSE 143 mg/dL (70-100); HEMOGLOBIN A1c% 6.6 % (4.27-6.07)
[2022-02-23] MEDS ORDERED: POTASSIUM CHLORIDE 20 MEQ TABLET PO SCH (10:00)
[2022-02-23] MEDS: POTASSIUM CHLORIDE 20 MEQ TABLET PO SCH ×2 (14:51→16:33)
--- NOTE | 2022-02-23 16:58 | PROVIDER PROGRESS NOTE ---
Subjective - Prog Note Date Prog Note Date: 02/23/22 Prog Note Time: 16:56 - Subjective Pt reports feeling: Improved Subjective: Hour-long conversation with patient and with daughter this morning. He has an excellent support system at home. They have in-home caregivers that come and go throughout the day to see to his needs. The daughter and her brother also come in frequently throughout the day to check on them. They are left alone for a few hours at night. The patient's has moderate dementia and they are hoping to keep them both at home for their mental wellbeing. A long conversation was had about chronic pedal edema and the etiology of pedal edema such as congestive heart failure, alcoholic liver disease, any type of cirrhotic liver disease but he does not have any history of these problems. His leg edema has been for decades and has been getting steadily worse. At times the skin does break and it does weep. Right now its not. But the leg edema which is getting so tight and going up his legs to the point that he could no longer weight-bear or bend his knees. He has a very sedentary lifestyle to begin with and adding the pain if this makes him even more chair bound or bedbound. Both daughter and patient iterate that the dad is a DO NOT RESUSCITATE status. They would like me to change the order in the chart. Current Medications - Current Medications Current Medications: Active Medications Acetaminophen (Acetaminophen 325 Mg Tablet) 650 mg PO Q4HR PRN PRN Reason: Pain 1 to 4, or Fever Furosemide (Furosemide 40 Mg/4 Ml Vial) 40 mg IVP BIDDIURETIC [facility] Last Admin: 02/23/22 14:51 Dose: 40 mg Heparin Sodium (Porcine) (Heparin 5,000 Unit/Ml Vial) 5,000 unit SUBQ BID [facility] Last Admin: 02/23/22 08:17 Dose: 5,000 unit Insulin Human Lispro (Insulin Lispro 300 Unit/3 Ml Pen) 1 - 5 unit SUBQ 0800,1200,1700,2100 [facility]; Protocol Last Admin: 02/23/22 12:00 Dose: 2 unit Ondansetron HCl (Ondansetron 4 Mg/2 Ml Vial) 4 mg IVP Q6HR PRN PRN Reason: Nausea / Vomiting Polyethylene Glycol (Polyethylene Glycol 3350 17 Gm Packet) 17 gm PO DAILY [facility] Last Admin: 02/23/22 08:19 Dose: 17 gm Potassium Chloride (Potassium Chloride 10 Meq Capsule) 20 meq PO DAILYWM [facility] Last Admin: 02/23/22 08:20 Dose: 20 meq Potassium Chloride (Potassium Chloride 20 Meq Tablet) 20 meq PO 1200,1700 [facility] Stop: 02/23/22 17:01 Last Admin: 02/23/22 16:33 Dose: 20 meq Sodium Chloride (Sodium Chloride Flush 0.9% 10 Ml Syringe) 10 ml IVP PRN PRN PRN Reason: NEEDED PER PROVIDER ORDERS Last Admin: 02/23/22 06:41 Dose: 10 ml Sodium Chloride (Sodium Chloride Flush 0.9% 10 Ml Syringe) 10 ml IVP 0100,0900,1700 [facility] Last Admin: 02/23/22 16:33 Dose: 10 ml Tamsulosin HCl (Tamsulosin 0.4 Mg Capsule) 0.4 mg PO DAILY [facility] Last Admin: 02/23/22 08:19 Dose: 0.4 mg Potassium Chloride [Klor-Con 10] 10 meq PO UD 04/27/20 Furosemide [Lasix] 40 mg PO DAILY 05/07/21 Tamsulosin [Flomax] 1 cap PO DAILY 05/07/21 diltiaZEM CD [Cardizem Cd] 180 mg PO DAILY 02/23/22 Objective - Vital Signs/Intake & Output Reviewed Vital Signs: Yes Vital Signs: Vital Signs x48h Temp Pulse Pulse Resp BP BP BP 02/23/22 15:47 36.5 C 65 20 152/63 H 02/23/22 13:00 36.4 C L 64 15 137/77 H 02/23/22 11:40 70 137/81 H Pulse Ox 02/23/22 15:47 97 02/23/22 13:00 97 02/23/22 11:40 Intake & Output: Intake & Output 02/20/22 02/21/22 02/22/22 02/23/22 23:59 23:59 23:59 23:59 Intake Total 880 Output Total 1975 Balance -1095 - Objective General Appearance: positive: No acute distress, Alert, Other (5 foot 10 inch elderly gentleman who looks stated age and weighs 120 kg. Overweight, with a large, large protuberant abdomen, sitting comfortably in bed, has eaten breakfast, and is participating in conversation between daughter and I and he) Eyes Bilateral: positive: PERRL, EOMI ENT: positive: Pharynx nml, No signs of dehydration Neck: positive: No JVD. negative: Stiff neck Respiratory: positive: No respiratory distress. negative: Wheezes, Rales, Rhonchi Cardiovascular: positive: Regular rate & rhythm. negative: Gallop/S4, Friction rub Abdomen: positive: Non-tender, Nml bowel sounds, No distention, Other (He usually obese large abdominal pannus that is quite protuberant, cannot assess for organomegaly) Skin: positive: Warm, Dry, Other (Evidence of chronic lymphedema of both lower extremities. The skin is rubbery, flake, shrinking. Red. But not hot. On both lower legs above the ankles there is a ring of rubbery subcutaneous changes. There is no open wounds. There is no bruising. He has reduced edema from yesterday today from) Extremities: positive: Pedal edema (Last night he had edema of the thighs and to the buttocks and abdomen. Today edema is only to just above the knees and down the calves), Other ([place]/rubbery changes of the skin from chronic edema. Particularly worse over both calves with the skin is very thick even in comparison to the shins). negative: Full ROM (He is able to flex his knees more than he was last night.) Neurologic/Psychiatric: positive: Oriented x3, CN's nml (2-12) (Except for mild deafness), Motor nml (Except for generalized weakness where he finds it difficult to be able to sit up and needs a two-person assist. Standing is not possible right now because his legs hurt) - Lab Results Fish Bones: 02/23/22 05:16 02/23/22 05:16 Other Labs: Lab Results x24hrs 02/23/22 02/23/22 02/23/22 Range/Units 16:42 11:26 07:43 WBC (4.8-10.8) x10^3/uL RBC (4.70-6.10) 10^6/uL Hgb (14.0-18.0) g/dL Hct (42.0-52.0) % MCV (80.0-94.0) fL MCH (27.0-31.0) pg MCHC (32.0-36.0) g/dL RDW (12.0-15.0) % Plt Count (130-450) 10^3/uL MPV (7.4-11.4) fL Neut # (Auto) (1.5-6.6) 10^3/uL Lymph # (Auto) (1.5-3.5) 10^3/uL [place] # (Auto) (0.0-1.0) 10^3/uL Eos # (Auto) (0.0-0.7) 10^3/uL Baso # (Auto) (0.0-0.1) 10^3/uL Absolute Nucleated RBC x10^3/uL Nucleated RBC % /100WBC Sodium (135-145) mmol/L Potassium (3.5-5.0) mmol/L Chloride (101-111) mmol/L Carbon Dioxide (21-32) mmol/L Anion Gap (6-13) BUN (6-20) mg/dL Creatinine (0.6-1.2) mg/dL Estimated GFR (MDRD) (>89) Glucose (70-100) mg/dL POC Whole Bld Glucose 144 H 206 H 152 H (70 - 100) mg/dL Estimat Average Glucose (70-100) mg/dL Hemoglobin A1c % (4.27-6.07) % Calcium (8.5-10.3) mg/dL Phosphorus (2.5-4.6) mg/dL Magnesium (1.7-2.8) mg/dL Total Bilirubin (0.2-1.0) mg/dL AST (10-42) IU/L ALT (10-60) IU/L Alkaline Phosphatase (42-121) IU/L B-Natriuretic Peptide (5-100) pg/mL Total Protein (6.7-8.2) g/dL Albumin (3.2-5.5) g/dL Globulin (2.1-4.2) g/dL Albumin/Globulin Ratio (1.0-2.2) Nasal Adenovirus (PCR) Nasal B. parapertussis DNA (PCR) Nasal Coronavir 229E PCR Nasal Coronavir HKU1 PCR Nasal Coronavir NL63 PCR Nasal Coronavir OC43 PCR Nasal Enterovir/Rhinovir PCR Nasal Influenza B PCR Nasal Influenza A PCR Nasal Parainfluen 1 PCR Nasal Parainfluen 2 PCR Nasal Parainfluen 3 PCR Nasal Parainfluen 4 PCR Nasal RSV (PCR) Nasal B.pertussis DNA PCR Nasal C.pneumoniae (PCR) Mark Human Metapneumo PCR Nasal M.pneumoniae (PCR) Nasal SARS-CoV-2 (PCR) 02/23/22 02/23/22 02/23/22 Range/Units 05:16 05:16 05:16 WBC 6.6 (4.8-10.8) x10^3/uL RBC 4.78 (4.70-6.10) 10^6/uL Hgb 15.2 (14.0-18.0) g/dL Hct 44.6 (42.0-52.0) % MCV 93.3 (80.0-94.0) fL MCH 31.8 H (27.0-31.0) pg MCHC 34.1 (32.0-36.0) g/dL RDW 13.0 (12.0-15.0) % Plt Count 137 (130-450) 10^3/uL MPV 12.1 H (7.4-11.4) fL Neut # (Auto) 4.2 (1.5-6.6) 10^3/uL Lymph # (Auto) 1.3 L (1.5-3.5) 10^3/uL [place] # (Auto) 0.6 (0.0-1.0) 10^3/uL Eos # (Auto) 0.4 (0.0-0.7) 10^3/uL Baso # (Auto) 0.1 (0.0-0.1) 10^3/uL Absolute Nucleated RBC 0.00 x10^3/uL Nucleated RBC % 0.0 /100WBC Sodium 139 (135-145) mmol/L Potassium 3.0 L (3.5-5.0) mmol/L Chloride 102 (101-111) mmol/L Carbon Dioxide 28 (21-32) mmol/L Anion Gap 9.0 (6-13) BUN 27 H (6-20) mg/dL Creatinine 1.2 (0.6-1.2) mg/dL Estimated GFR (MDRD) 58 L (>89) Glucose 158 H (70-100) mg/dL POC Whole Bld Glucose (70 - 100) mg/dL Estimat Average Glucose 143 H (70-100) mg/dL Hemoglobin A1c % 6.6 H (4.27-6.07) % Calcium 8.7 (8.5-10.3) mg/dL Phosphorus 3.5 (2.5-4.6) mg/dL Magnesium 2.1 (1.7-2.8) mg/dL Total Bilirubin (0.2-1.0) mg/dL AST (10-42) IU/L ALT (10-60) IU/L Alkaline Phosphatase (42-121) IU/L B-Natriuretic Peptide (5-100) pg/mL Total Protein (6.7-8.2) g/dL Albumin (3.2-5.5) g/dL Globulin (2.1-4.2) g/dL Albumin/Globulin Ratio (1.0-2.2) Nasal Adenovirus (PCR) Nasal B. parapertussis DNA (PCR) Nasal Coronavir 229E PCR Nasal Coronavir HKU1 PCR Nasal Coronavir NL63 PCR Nasal Coronavir OC43 PCR Nasal Enterovir/Rhinovir PCR Nasal Influenza B PCR Nasal Influenza A PCR Nasal Parainfluen 1 PCR Nasal Parainfluen 2 PCR Nasal Parainfluen 3 PCR Nasal Parainfluen 4 PCR Nasal RSV (PCR) Nasal B.pertussis DNA PCR Nasal C.pneumoniae (PCR) Mark Human Metapneumo PCR Nasal M.pneumoniae (PCR) Nasal SARS-CoV-2 (PCR) 02/22/22 02/22/22 02/22/22 Range/Units 23:27 19:42 19:42 WBC (4.8-10.8) x10^3/uL RBC (4.70-6.10) 10^6/uL Hgb (14.0-18.0) g/dL Hct (42.0-52.0) % MCV (80.0-94.0) fL MCH (27.0-31.0) pg MCHC (32.0-36.0) g/dL RDW (12.0-15.0) % Plt Count (130-450) 10^3/uL MPV (7.4-11.4) fL Neut # (Auto) (1.5-6.6) 10^3/uL Lymph # (Auto) (1.5-3.5) 10^3/uL [place] # (Auto) (0.0-1.0) 10^3/uL Eos # (Auto) (0.0-0.7) 10^3/uL Baso # (Auto) (0.0-0.1) 10^3/uL Absolute Nucleated RBC x10^3/uL Nucleated RBC % /100WBC Sodium 135 (135-145) mmol/L Potassium 3.7 (3.5-5.0) mmol/L Chloride 100 L (101-111) mmol/L Carbon Dioxide 26 (21-32) mmol/L Anion Gap 9.0 (6-13) BUN 28 H (6-20) mg/dL Creatinine 1.5 H (0.6-1.2) mg/dL Estimated GFR (MDRD) 45 L (>89) Glucose 175 H (70-100) mg/dL POC Whole Bld Glucose (70 - 100) mg/dL Estimat Average Glucose (70-100) mg/dL Hemoglobin A1c % (4.27-6.07) % Calcium 9.1 (8.5-10.3) mg/dL Phosphorus (2.5-4.6) mg/dL Magnesium 2.2 (1.7-2.8) mg/dL Total Bilirubin 0.4 (0.2-1.0) mg/dL AST 20 (10-42) IU/L ALT 30 (10-60) IU/L Alkaline Phosphatase 68 (42-121) IU/L B-Natriuretic Peptide 61 (5-100) pg/mL Total Protein 6.8 (6.7-8.2) g/dL Albumin 3.7 (3.2-5.5) g/dL Globulin 3.1 (2.1-4.2) g/dL Albumin/Globulin Ratio 1.2 (1.0-2.2) Nasal Adenovirus (PCR) NOT DETECTED Nasal B. parapertussis DNA (PCR) NOT DETECTED Nasal Coronavir 229E PCR NOT DETECTED Nasal Coronavir HKU1 PCR NOT DETECTED Nasal Coronavir NL63 PCR NOT DETECTED Nasal Coronavir OC43 PCR NOT DETECTED Nasal Enterovir/Rhinovir PCR NOT DETECTED Nasal Influenza B PCR NOT DETECTED Nasal Influenza A PCR NOT DETECTED Nasal Parainfluen 1 PCR NOT DETECTED Nasal Parainfluen 2 PCR NOT DETECTED Nasal Parainfluen 3 PCR NOT DETECTED Nasal Parainfluen 4 PCR NOT DETECTED Nasal RSV (PCR) NOT DETECTED Nasal B.pertussis DNA PCR NOT DETECTED Nasal C.pneumoniae (PCR) NOT DETECTED Mark Human Metapneumo PCR NOT DETECTED Nasal M.pneumoniae (PCR) NOT DETECTED Nasal SARS-CoV-2 (PCR) NOT DETECTED 02/22/22 Range/Units 19:42 WBC 8.0 (4.8-10.8) x10^3/uL RBC 4.60 L (4.70-6.10) 10^6/uL Hgb 14.8 (14.0-18.0) g/dL Hct 43.0 (42.0-52.0) % MCV 93.5 (80.0-94.0) fL MCH 32.2 H (27.0-31.0) pg MCHC 34.4 (32.0-36.0) g/dL RDW 13.1 (12.0-15.0) % Plt Count 164 (130-450) 10^3/uL MPV 11.1 (7.4-11.4) fL Neut # (Auto) 5.5 (1.5-6.6) 10^3/uL Lymph # (Auto) 1.5 (1.5-3.5) 10^3/uL [place] # (Auto) 0.7 (0.0-1.0) 10^3/uL Eos # (Auto) 0.2 (0.0-0.7) 10^3/uL Baso # (Auto) 0.1 (0.0-0.1) 10^3/uL Absolute Nucleated RBC 0.00 x10^3/uL Nucleated RBC % 0.0 /100WBC Sodium (135-145) mmol/L Potassium (3.5-5.0) mmol/L Chloride (101-111) mmol/L Carbon Dioxide (21-32) mmol/L Anion Gap (6-13) BUN (6-20) mg/dL Creatinine (0.6-1.2) mg/dL Estimated GFR (MDRD) (>89) Glucose (70-100) mg/dL POC Whole Bld Glucose (70 - 100) mg/dL Estimat Average Glucose (70-100) mg/dL Hemoglobin A1c % (4.27-6.07) % Calcium (8.5-10.3) mg/dL Phosphorus (2.5-4.6) mg/dL Magnesium (1.7-2.8) mg/dL Total Bilirubin (0.2-1.0) mg/dL AST (10-42) IU/L ALT (10-60) IU/L Alkaline Phosphatase (42-121) IU/L B-Natriuretic Peptide (5-100) pg/mL Total Protein (6.7-8.2) g/dL Albumin (3.2-5.5) g/dL Globulin (2.1-4.2) g/dL Albumin/Globulin Ratio (1.0-2.2) Nasal Adenovirus (PCR) Nasal B. parapertussis DNA (PCR) Nasal Coronavir 229E PCR Nasal Coronavir HKU1 PCR Nasal Coronavir NL63 PCR Nasal Coronavir OC43 PCR Nasal Enterovir/Rhinovir PCR Nasal Influenza B PCR Nasal Influenza A PCR Nasal Parainfluen 1 PCR Nasal Parainfluen 2 PCR Nasal Parainfluen 3 PCR Nasal Parainfluen 4 PCR Nasal RSV (PCR) Nasal B.pertussis DNA PCR Nasal C.pneumoniae (PCR) Mark Human Metapneumo PCR Nasal M.pneumoniae (PCR) Nasal SARS-CoV-2 (PCR) Assessment/Plan - Problem List (1) Anasarca Impression: Patient is on chronic Lasix but says he has never been told he has congestive heart failure. He had an Echo done in September by the Assistant Tennis Coach who saw him for clearance before the kidney stone procedure and he was "cleared". However, for the last 6 mos, he was told to drink about a L of fluid a day, the daughter reports. He denies salt use. Preliminary echocardiogram shows mild concentric left ventricular hypertrophy. Overall his ejection fraction is normal at 55 to 60%. Indeterminate left ventricular filling pattern due to irregular rhythm. Right ventricle systolic function normal. Mild increase in left atrial volume index. Mild right atrial enlargement. Aortic valve not well visualized. Tricuspid and mitral valve appear normal. He is on IV diuretics, twice a day. Fluid intake continues to be restricted at 2 L a day. BNP in the ER was 61.Weight on admission was 122.5 kg. Today he is 120 kg. Assessment/plan My suspicion is this this is all lymphedema. Chronic of decades duration. He does not have cirrhotic liver disease nor does he have congestive heart failure. Changed to inpatient status since he still needs some diuresis I went over different techniques to control this chronic lifelong illness. We talked about a low-salt diet, elevation of legs when he is sitting and using combination of compression hose as well as sequential compression device. Those can be bought on [id number]. He can also be referred to see [facility] at [facility] who specializes in lymphedema. PT evaluation while here since is hard for him to walk. (2) Inability to ambulate due to right knee Conclusion/Plan: This did not appear to be warm but probably is affected by the anasarca of both legs. Because of the anasarca plus this pain, he has not been walking at home for about 2 days. Edema is improving. We will order physical therapy for evaluation today. (3) Diabetes mellitus Conclusion/Plan: He has diet-controlled diabetes. Today's glucose has been 152 and 206. A1c was 6.6%. We will continue diabetic diet, fingersticks, sliding scale insulin. (4) CKD (chronic kidney disease) Conclusion/Plan: Patient has a baseline elevation of creatinine at 1.4-1.5. With diuresis creatinine is 1.2. Avoid nephrotoxins. Follow BMP daily (5) BPH (benign prostatic hyperplasia) Conclusion/Plan: We will continue his tamsulosin
[2022-02-24] MEDS: SODIUM CHLORIDE FLUSH 0.9% 10 ML SYRINGE IVP SCH ×2 (00:14→08:00)
[2022-02-24 05:08] LABS: CALCIUM 8.6 mg/dL (8.5-10.3); CREATININE 1.1 mg/dL (0.6-1.2)
[2022-02-24] MEDS: SODIUM CHLORIDE FLUSH 0.9% 10 ML SYRINGE IVP PRN (06:09)
[2022-02-24] MEDS: FUROSEMIDE 40 MG/4 ML VIAL IVP SCH (06:09)
[2022-02-24] MEDS: TAMSULOSIN 0.4 MG CAPSULE PO SCH (08:00)
[2022-02-24] MEDS: POTASSIUM CHLORIDE 10 MEQ CAPSULE PO SCH (08:00)
[2022-02-24] MEDS: HEPARIN 5,000 UNIT/ML VIAL SUBQ SCH (08:01)
[2022-02-24] MEDS: INSULIN LISPRO 300 UNIT/3 ML PEN SUBQ SCH ×2 (08:03→12:09)
[2022-02-24] MEDS: polyethylene glycoL 3350 17 GM PACKET PO SCH (08:04)
--- NOTE | 2022-02-24 08:39 | Discharge Plan ---
Discharge Plan Problem Reviewed?: Yes Disposition: 06 Home Health Service Condition: Stable Prescriptions: Potassium Chloride [Micro-K] 20 meq PO DAILYWM #60 cap Diet: Low Sodium Activity Restrictions: Activity as Tolerated Shower Restrictions: No Driving Restrictions: Yes (no driving) Assistance Devices: Walker Instruction Topics: ED Lymphedema, Chronic Venous Insufficiency Health Concerns: You presented to our emergency room because of worsening leg swelling. You have chronic leg swelling and at times your skin has broken down and you lose water. You have been dealing with it for quite some time. Over the last week its gotten much worse and it got to the point where you could not bend your knees or stand. After evaluation we did not find you had any nefarious causes of leg edema. In other words we did not feel you had congestive heart failure, or cirrhosis of the liver. You have responded to Lasix which we gave you intravenously, and elevating your legs. Plan of Treatment: 1. Consider buying sequential compression device. It is like a boot that you put your foot and your legs into. You Velcro the wrapping around her leg and plug it into an electrical wall source were the boot will then squeeze your legs. Every time you sit down to watch TV, elevate your legs and use this boot. 2. Wear compression stockings daily and you can take them off at night when you go to bed 3. A low-salt diet was described to you and your daughter. Canned food sources soups and premade tomato sauces such as for spaghetti or ham, turkey, roast beef should probably be not used in your diet. Consider using everything that is fresh or grilled. 4. Please have your primary care provider refer you to [facility] to be treated for lymphedema. 5. I will be ordering Home Health Physical Therapy to help with increasing your strength and mobility Care Goals: To remove the water from your legs to the point that you can ambulate without pain and less use of durable medical equipment Assessment: Patient states he understands our care and plan. Daughter was at the bedside the day before and understood care goals. Follow-Up Care: Home Health - RN, Home Health - PT No Smoking: If you smoke, Please STOP! Call for help. Follow-up with: Den Veras MD [Primary Care Provider] -
--- NOTE | 2022-02-24 08:39 | DISCHARGE SUMMARY ---
Discharge Summary Admit Date: 02/22/22 Discharge Date: 02/24/22 Discharging Provider: Ashley Szymanski MD Primary Care Provider: Den Veras MD Code Status: Do Not Attempt Resuscitation Condition at Discharge: Stable Discharge Disposition: 06 [facility] - DIAGNOSES Discharge Diagnoses with Status of Each Condition: 1. Anasarca 2. Chronic venous insufficiency of lower extremities 3. Inability to ambulate due to right knee pain 4. Type 2 diabetes mellitus, with complication of peripheral neuropathy and chronic kidney disease, not on long-term insulin 5. Chronic kidney disease stage III 6. Benign prostatic hypertrophy - HPI History of Present Illness: This is an 82-year-old white male with a history of diet-controlled diabetes, CKD, BPH and UTIs from a chronic kidney stone. He had Cardiology clearance in September to have the stone eventually removed by Urology, which has never been scheduled yet. The patient presented with worsening leg edema over the past 1 week. He normally has edema to his ankles and takes daily Lasix but (his daughter states) he has been told to drink alot of water for the last 6mos to "mobilize the edema", not for his CKD or the kidney stone. His leg swelling went up to the knees over the past week and legs were so edematous and tense during the last 2 days, that he could not bend them to get out of bed and also developed pain in the right knee with weight bearing, preventing his ambulation for 2 days. He denies shortness of breath, orthopnea, chest pain, palpitations or syncope. He has been compliant with his medications. He presented due to even higher leg swelling and inability to bend his knees to transfer or get out of bed. In the ED he underwen t ultrasound and DVT was ruled out in both legs. The right knee was not felt to have inflammation and was not tapped, but rather was felt to be stiff from the marked leg edema, now up to his groin. He was given a dose of Lasix 80 mg IV x1. The ED provider reached out to the Hospitalist team to place him in Observation for further and more aggressive IV diuretic treatment. - Past Medical History Cardiovascular: reports: Hypertension, High cholesterol Respiratory: reports: None Neuro: reports: Peripheral neuropathy Endocrine/Autoimmune: reports: Type 2 diabetes GI: reports: None : reports: Benign prostate hypertrophy Psych: reports: None Musculoskeletal: reports: None Derm: reports: None MRSA Hx?: No - Past Surgical History Derm: reports: Other - CONSULTS | PROCEDURES Procedures: Echocardiogram had underlying rhythm of atrial fibrillation with controlled ventricular response. Left ventricular size was normal. Wall thickness normal. Systolic ejection fraction normal at 55 to 60%. Right ventricle normal in size and function. Mild increase in left atrial volume index. No significant valvular heart disease. Venous duplex studies of both legs without DVT Knee x-ray of right knee with no fracture or dislocation. Small joint effusion. Abdomen pelvis CT with a nonobstructing stone in the inferior pole of the left kidney measuring 0.8 cm. Nonspecific perinephric stranding. No hydronephrosis no hydroureter. Liver is normal. No biliary pathology. Bowel normal. Aorta and inferior vena cava normal. There is a superior plate compression deformity of T12 vertebral body with up to 30% loss of height. Chest x-ray with increased pulmonary edema. Peripheral opacities at the right lung base consistent with atelectasis. - HOSPITAL COURSE Hospital Course: He did andThe patient was placed on IV Lasix twice a day. He had brisk diuresis. Sequential compression devices used intermittently. Potassium was low during his stay and he needed to be supplemented orally. Diabetes was evaluated and his A1c is 6.6%. We use sliding scale insulin while he was in the hospital to control his sugar. Admission weight was 122.5 kg. At discharge he was 122.5 kg. Anasarca resolved where it was present around his buttocks, and thighs. At discharge he had edema only below the knee. He has chronic venous stasis skin changes that are rubbery and thick. A small rim of "bracelet" was on the distal end above his ankles on both legs. But there is no open wounds, skin breakdown or oozing. He was having increased range of motion with using his right knee. At discharge temperature was 36.6. Heart rate 63. Blood pressure 149/72. Respirations 18. 96% on room air. He is a 5 foot 10 inch elderly gentleman who is 122.5 kg. 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 But alert, oriented and understands w hy he was here and what her treatment plan was. Lungs have diminished breath sounds at the bases but were clear to auscultation and percussion without any crackles rhonchi wheezing or respiratory distress. Telemetry shows a regular rate and rhythm with occasional sinus arrhythmia and spite of the echo being interpreted as atrial fibrillation. Abdomen is with a hugely protuberant abdominal wall where he carries most of his weight. Not able to assess for organomegaly but there is no fluid wave, tenderness, or abdominal wall edema. Normal bowel sounds. The legs have chronic readiness and redness below the knee with rubbery skin thickening. You are starting to see shrinkage and wrinkling associated with loss of edema from admission to discharge. Greater than 30 minutes was spent coordinating discharge, explaining future treatment plan form, and he needs to follow-up with his primary care provider in the next 1 to 2 weeks. A BMP should be checked because of potassium supplementation requirements.He will also be sent home with home health PT, OT and bath aide. - ALLERGIES Allergies/Adverse Reactions: Allergies Allergy/AdvReac Type Severity Reaction Status Date / Time No Known Drug Allergies Allergy Verified 06/19/21 15:43 - MEDICATIONS Home Medications: Ambulatory Orders Medication Instructions Recorded Confirmed Lactobacillus Acidophilus 1 each PO DAILY #5 tablet 04/30/20 02/23/22 [Probiotic Acidophilus] Pnv No.95/Ferrous Fum/Folic AC 1 each PO DAILY #30 tablet 04/30/20 02/23/22 [ Tablet] Thiamine HCl [Vitamin B-1] 100 mg PO DAILY #30 tablet 04/30/20 02/23/22 Furosemide [Lasix] 40 mg PO DAILY 05/07/21 02/23/22 Tamsulosin [Flomax] 1 cap PO DAILY 05/07/21 02/23/22 Potassium Chloride [Micro-K] 20 meq PO DAILYWM #60 cap 02/24/22 diltiaZEM CD [Cardizem Cd] 240 mg PO DAILY 02/24/22 02/24/22 - LABS Result Diagrams: 02/23/22 05:16 02/24/22 04:45
[2022-02-24 10:16] VITALS: BP 137/81
[2022-02-24] MEDS ORDERED: POTASSIUM CHLORIDE 20 MEQ TABLET PO SCH (14:00)
== END 2022-02-24 13:55 | disposition home health service (06) | DRG 948 ==
LOC: EDSEX → EDUNIT# → ED 18:35 → MS2 23:45 → OBSVTOIN 02-23 12:06
PROVIDERS: ADMIT Internal Medicine; ATTEND Specialist
DX: R60.1 Generalized edema (principal); M79.605 Pain in left leg; M79.604 Pain in right leg; J98.11 Atelectasis; I87.2 Venous insufficiency (chronic) (peripheral); N18.9 Chronic kidney disease, unspecified; E11.22 Type 2 diabetes mellitus with diabetic chronic kidney disease; E11.42 Type 2 diabetes mellitus with diabetic polyneuropathy; I12.9 Hypertensive chronic kidney disease with stage 1 through stage 4 chronic kidney disease, or unspecified chronic kidney disease; Z20.822 Contact with and (suspected) exposure to COVID-19; N18.30 Chronic kidney disease, stage 3 unspecified; N40.0 Benign prostatic hyperplasia without lower urinary tract symptoms; N20.0 Calculus of kidney; M25.561 Pain in right knee; I48.91 Unspecified atrial fibrillation; M25.461 Effusion, right knee; E87.6 Hypokalemia; I87.8 Other specified disorders of veins; H91.90 Unspecified hearing loss, unspecified ear; Z66 Do not resuscitate; I89.0 Lymphedema, not elsewhere classified; R53.1 Weakness
CPT/HCPCS: 36415; 71045; 73564; 74176; 80048; 80053; 83036; 83735; 83880; 84100; 85025; 87633; 93005; 93306; 93970; 96372; 96374; 96376; 97140; 97165; 97530; 99284; 99285; A9270; G0378

== ENCOUNTER 2022-10-31 13:26 | Outpatient (CLI) | payer MEDICARE | END 2022-10-31 13:27 | disposition critical access hospital (66) | LOC: EMS 13:26 | DX: R53.1 Weakness (principal); M54.50 Low back pain, unspecified; R50.9 Fever, unspecified; R41.0 Disorientation, unspecified | CPT/HCPCS: A0425; A0429 ==

== ENCOUNTER 2022-10-31 13:46 | Emergency (ER) | payer MEDICARE, OTHER ==
--- NOTE | 2022-10-31 13:59 | ED Physician Documentation ---
History of Present Illness - Stated complaint Stated Complaint: BILAT LEG WEAKNESS - Chief complaint Chief Complaint: Neuro - History obtained from History obtained from: Patient - Additonal information Additional information: The patient comes to the emergency department via EMS for chief complaint of not feeling legs. Patient has a longstanding history of neuropathy and walks with a walker because of this. He had a fall yesterday which involved sliding off his bed onto the floor, landing in a sitting position. The patient states he has had some sacral pain since. He however, he has been able to ambulate with his walker as usual and remained at his shelter facility until nursing staff found him sitting on the floor again this morning. The patient stated to them that he had not fallen but rather, just became tired while ambulating with his walker and decided to sit down. The patient denies any pain other than in his sacral area. No neck pain. He did not hit his head that he remembers. He remembers falling. He denies any abdominal pain. No cough or GI symptoms. No shortness of breath. The patient was found to have a low-grade fever both at his shelter facility and in route. He denies any dysuria. No other complaints at this time PD PAST MEDICAL HISTORY - Past Medical History Cardiovascular: Hypertension, High cholesterol Respiratory: None Neuro: Peripheral neuropathy Endocrine/Autoimmune: Type 2 diabetes GI: None : Benign prostate hypertrophy Psych: None Musculoskeletal: None Derm: None - Past Surgical History Past Surgical History: Yes Derm: Other - Present Medications Home Medications: Ambulatory Orders Medication Instructions Recorded Confirmed Lactobacillus Acidophilus 1 each PO DAILY #5 tablet 04/30/20 02/23/22 [Probiotic Acidophilus] Pnv No.95/Ferrous Fum/Folic AC 1 each PO DAILY #30 tablet 04/30/20 02/23/22 [ Tablet] Thiamine HCl [Vitamin B-1] 100 mg PO DAILY #30 tablet 04/30/20 02/23/22 Furosemide [Lasix] 40 mg PO DAILY 05/07/21 02/23/22 Tamsulosin [Flomax] 1 cap PO DAILY 05/07/21 02/23/22 Potassium Chloride [Micro-K] 20 meq PO DAILYWM #60 cap 02/24/22 diltiaZEM CD [Cardizem Cd] 240 mg PO DAILY 02/24/22 02/24/22 HYDROcod/ACETAM 5/325 [[place] 5/325] 1 - 2 tablet PO HS PRN #14 tablet 10/31/22 Ibuprofen [Motrin] 800 mg PO Q8H PRN #30 tablet 10/31/22 predniSONE [Deltasone] 10 mg PO [id number] #42 tab 10/31/22 - Allergies Allergies/Adverse Reactions: Allergies Allergy/AdvReac Type Severity Reaction Status Date / Time No Known Drug Allergies Allergy Verified 06/19/21 15:43 - Social History Does the pt smoke?: No Smoking Status: Never smoker Does the pt drink ETOH?: Yes Does the pt have substance abuse?: No - Immunizations Immunizations are current?: Yes - POLST Patient has POLST: No POLST Status: Full Code PD ED PE NORMAL - Vitals Vital signs reviewed: Yes - General General: No acute distress, Well developed/nourished, Other (Alert, answers questions appropriately.) - HEENT HEENT: Atraumatic, PERRL, EOMI, Moist mucous membranes - Neck Neck: Supple, no meningeal sign, No bony TTP - Cardiac Cardiac: RRR, No murmur, Strong equal pulses - Respiratory Respiratory: No respiratory distress, Clear bilaterally - Abdomen Abdomen: Soft, Non tender, Other (Obese) - Back Back: Other (No sacral tenderness to palpation; tenderness without step-off over approximately the L3-5 area.) - Derm Derm: Normal color, Warm and dry, No rash - Extremities Extremities: No deformity - Neuro Neuro: Alert and oriented X 3 - Psych Psych: Normal mood, Normal affect Results - Vitals Vitals: Vital Signs - 24 hr 10/31/22 10/31/22 10/31/22 13:51 14:08 15:55 Temperature 38.7 C H 36.8 C Heart Rate 93 94 82 Respiratory 20 20 20 Rate Blood Pressure 170/89 H 156/96 H 141/93 H O2 Saturation 95 96 95 10/31/22 16:43 Temperature 36.7 C Heart Rate 80 Respiratory 20 Rate Blood Pressure 147/90 H O2 Saturation 98 Oxygen O2 Source Room air - Labs Labs: Laboratory Tests 10/31/22 14:54 Urine Color YELLOW Urine Clarity CLEAR Urine pH 7.0 Ur Specific [place] 1.010 Urine Protein NEGATIVE Urine Glucose (UA) >=1000 H Urine Ketones NEGATIVE Urine Occult Blood TRACE-LYSE Urine Nitrite NEGATIVE Urine Bilirubin NEGATIVE Urine Urobilinogen 0.2 (NORMAL) Ur Leukocyte Esterase NEGATIVE Ur Microscopic Review NOT INDICATED Urine Culture Comments NOT INDICATED PD Medical Decision Making - ED course Complexity details: reviewed old records, reviewed results, re-evaluated patient, considered differential, d/w patient ED course: The patient was worked up with urinalysis and CT of the lumbosacral spine. He was treated with Tylenol and ibuprofen for his fever. Other than some chronic changes in the lumbar spine, the patient's work-up was negative. His urinalysis was reviewed by me and unremarkable. His daughter did come to the ED and I discussed with her and with the patient that I am not sure what is caused his low-grade fever today. Patient has no other symptoms whatsoever and otherwise, looks very good. I suspect a viral syndrome. We have discussed symptomatic management at his facility, as well as the need for follow-up and the usual indications for return. Departure - Departure Disposition: Home, Self Care Clinical Impression: Ground-level fall Degenerative joint disease (DJD) of lumbar spine Qualifiers: Spinal osteoarthritis complication: unspecified spinal osteoarthritis Qualified Code(s): M47.816 - Spondylosis without myelopathy or radiculopathy, lumbar region Peripheral neuropathy Qualifiers: Peripheral neuropathy type: polyneuropathy, unspecified Qualified Code(s): G62.9 - Polyneuropathy, unspecified Condition: Stable Instructions: ED Sprain Strain Lumbar, ED Degenerative Joint Disease Prescriptions: predniSONE [Deltasone] 10 mg PO [id number] #42 tab Ibuprofen [Motrin] 800 mg PO Q8H PRN #30 tablet PRN Reason: PAIN &/OR FEVER HYDROcod/ACETAM 5/325 [[place] 5/325] 1 - 2 tablet PO HS PRN #14 tablet PRN Reason: Pain Comments: Your CT scan shows some degenerative joint disease of your lumbar spine which is not at all surprising, given your long life. There are some minor disc h erniations, and it is not clear whether these are acute or existing. Most likely, they are existing at least to some degree but may have been a bit flared up by a recent fall. Your urinalysis is negative for infection. It is important that you follow-up with your primary care physician for further concerns. In the meantime, you should take the steroid, ibuprofen, and pain medication as directed. Specifically, the steroid taper should be taken every day as directed until the course is complete. Ibuprofen should be given at a dose of 800 mg every 8 hours during waking hours for the next several days. After that, and can be strictly as needed. The pain medication that has been prescribed, which is hydrocodone with acetaminophen, should be given in the evening before you go to bed. You may be given 1 pill at this time. After the first few days, this may be an as needed medication. Please be sure you get plenty of fluids to drink and that you call for assistance if needed. Please make use of your lift chair, lift bed, walker and wheelchair. Your prescriptions have been electronically transmitted to the [facility] pharmacy in [place]. Discharge Date/Time: 10/31/22 16:44
[2022-10-31] MEDS ORDERED: ACETAMINOPHEN 325 MG TABLET PO STA (14:00)
[2022-10-31] MEDS ORDERED: IBUPROFEN 600 MG TABLET PO STA (14:00)
--- NOTE | 2022-10-31 14:51 | CT Report ---
PROCEDURE: LUMBAR SPINE WO INDICATIONS: fall/pain/difficulty standing TECHNIQUE: Noncontrast 3 mm thick sections acquired from the T12 level to the sacrum. Sagittal and coronal refo rmats were constructed. For radiation dose reduction, the following was used: automated exposure co ntrol, adjustment of mA and/or kV according to patient size. COMPARISON: None. FINDINGS: Image quality: Excellent. Bones: There is normal bony alignment. No acute vertebral body compression fractures. T12 compress ion deformity as well as endplate deformity at L1 is unchanged compared to prior exam. No suspicious lytic or blastic bony lesions. No pars defects. Moderate disc space narrowing is noted L5-S1, mild to moderate throughout the remainder of the lumbar spine. Multilevel disc bulges are present throughout the lumbar spine. There is moderate to severe s jimbo stenosis at L2-3, severe L3-4 and L4-5 and L5-S1 with canal compression. Multilevel facet and l igamentum flavum hypertrophy are present as well as epidural lipomatosis. There is moderate to severe left and moderate right foraminal narrowing L1-2, L2-3, moderate to severe bilateral L3-4, L4-5 and moderate bilateral L5-S1. Soft tissues: No retroperitoneal masses or hematomas. Visualized aorta is normal in caliber. IMPRESSION: No visualized fracture. Multilevel severe spinal stenosis secondary to disc bulge with contributing effect of facet/ligamentu m flavum arthropathy. Multilevel moderate to severe foraminal narrowing secondary to facet arthropathy. Reviewed by: Aundrea Field MD on 10/31/2022 2:49 PM PDT Approved by: Aundrea Field MD on 10/31/2022 2:49 PM PDT Station ID: [id number]
[2022-10-31 15:18] LABS: BILIRUBIN,URINE NEGATIVE (NEGATIVE); GLUCOSE, URINE (UA) >=1000 mg/dL (NEGATIVE); KETONES,URINE (UA) NEGATIVE (NEGATIVE); LEUKOCYTE ESTERASE, URINE NEGATIVE (NEGATIVE); NITRITE,URINE NEGATIVE (NEGATIVE); OCCULT BLOOD,URINE TRACE-LYSE (NEGATIVE); PROTEIN,URINE NEGATIVE (NEGATIVE); UROBILINOGEN,URINE 0.2 (NORMAL) E.U./dL (NORMAL)
[2022-10-31 15:20] LABS: CLARITY,URINE CLEAR (CLEAR)
[2022-10-31 16:44] VITALS: BP 147/90
== END 2022-10-31 16:44 | disposition home or self-care (01) ==
LOC: EDUNIT# → SUPCPDRO 13:46 → ED 13:46
DX: M47.816 Spondylosis without myelopathy or radiculopathy, lumbar region (principal); W06.XXXA Fall from bed, initial encounter; Y92.89 Other specified places as the place of occurrence of the external cause; E11.42 Type 2 diabetes mellitus with diabetic polyneuropathy; I10 Essential (primary) hypertension; E78.00 Pure hypercholesterolemia, unspecified; Z79.899 Other long term (current) drug therapy
CPT/HCPCS: 72131; 81003; 99283; 99284; A9270; 81001; 87086

== ENCOUNTER 2022-11-02 09:37 | Outpatient (CLI) | payer MEDICARE | END 2022-11-02 23:59 | disposition short-term general hospital (02) | LOC: EMS 09:37 | DX: R29.6 Repeated falls (principal); R53.1 Weakness; M54.50 Low back pain, unspecified | CPT/HCPCS: A0425; A0429; A0888 ==

== ENCOUNTER 2023-11-17 13:29 | Outpatient (CLI) | payer MEDICARE | END 2023-11-17 13:30 | disposition critical access hospital (66) | LOC: EMS 13:29 | DX: M54.50 Low back pain, unspecified (principal); W01.0XXA Fall on same level from slipping, tripping and stumbling without subsequent striking against object, initial encounter; Z79.01 Long term (current) use of anticoagulants | CPT/HCPCS: A0425; A0429 ==

== ENCOUNTER 2023-11-17 17:35 | Outpatient (CLI) | payer MEDICARE | END 2023-11-17 17:36 | disposition home or self-care (01) | LOC: EMS 17:35 | PROVIDERS: ATTEND Nurse Practitioner | DX: S32.029A Unspecified fracture of second lumbar vertebra, initial encounter for closed fracture (principal); Z74.01 Bed confinement status | CPT/HCPCS: A0425; A0428 ==

== ENCOUNTER 2024-03-11 12:12 | Outpatient (CLI) | payer MEDICARE | END 2024-03-11 12:13 | disposition short-term general hospital (02) | LOC: EMS 12:12 | DX: M54.50 Low back pain, unspecified (principal); W18.39XA Other fall on same level, initial encounter; Z91.81 History of falling; Y93.01 Activity, walking, marching and hiking; Y92.099 Unspecified place in other non-institutional residence as the place of occurrence of the external cause; R53.1 Weakness | CPT/HCPCS: A0425; A0429; A0888 ==

== ENCOUNTER 2025-03-31 11:34 | Inpatient (IN) ==
--- NOTE | 2025-03-31 11:41 | ED Physician Documentation ---
History of Present Illness Stated complaint Stated Complaint: AMS/CONFUSION Chief complaint Chief Complaint: Resp History obtained from History obtained from: Patient and EMS Additonal information Additional information: 85-year-old gentleman with history of stroke on DAPT, resident of [facility], bedbound at baseline has been reportedly confused since yesterday. Family notes confusion and also cough. Patient does not have any specific complaints for me. Denies pain. Meds/Allgy Home Medications Ambulatory Orders Medication Instructions Recorded Confirmed Lactobacillus acidophilus 2 1 ea PO DAILY #5 tabs 110 11/1211/17/23 billion cell tablet vit no.95-ferrous 1 ea PO DAILY #30 tabs 11/0 11/1211/17/23 fumarate 28 mg-folic acid 800 mcg tablet furosemide 40 mg tablet 40 mg PO BID 05/07/21 tamsulosin 0.4 mg capsule 1 cap PO DAILY 05/07/2110/25 ibuprofen 800 mg tablet 800 mg PO Q8H PRN PAIN &/OR FEVER 10/31/22 11/17/23 #30 tabs amlodipine 10 mg tablet (Norvasc) 10 mg PO DAILY 11/1611/17/23 aspirin 81 mg tablet,delayed 81 mg PO DAILY 11/17/23 0 11/17/23 release (Mccreary Aspirin) atorvastatin 80 mg tablet (Lipitor) 80 mg PO DAILY 11/17/23 carbamide peroxide 6.5 % ear drops 5 drp EACHEAR BID 0 11/17/23 11/17/23 (Ear Drops (carbamide peroxide)) clopidogrel 75 mg tablet (Plavix) 75 mg PO DAILY 11/1611/17/23 insulin glargine 100 unit/mL (3 15 unit subcut DAILY 0 11/17/23 11/17/23 mL) subcutaneous pen (Lantus Solostar U-100 Insulin) potassium chloride 20 mEq 20 meq PO DAILY 11/17/23 tablet,extended release potassium chloride 20 mEq 40 meq PO DAILY 11/17/23 tablet,extended release(part/cryst) (Klor-Con M) Allergies Allergies Allergy/AdvReac Type Severity Reaction Status Date / Time No Known Drug Allergies Allergy Verified 11/17/23 13:58 PFSH Active Problems All Active Problems (Updated 03/31/25 @ 16:26 by Andre Álvarez MD) Sepsis (Acute) BPH (benign prostatic hyperplasia) (Acute) Anasarca (Acute) CKD (chronic kidney disease) (Acute) Diabetes mellitus (Acute) Inability to ambulate due to right knee (Acute) Urinary tract infection (Acute) Dehydration (Acute) Hypokalemia (Acute) Acute kidney injury (Acute) Alcohol use (Acute) Bilateral leg pain (Acute) Social History Social History Do you dip or chew tobacco?: No Living arrangement: At home Living Condition: With spouse/s.o. Do you feel safe in your home environment?: Yes History of physical, verbal, emotional, or financial abuse?: No Frequency: Occasional POLST Patient has POLST: No Exam Exam Vital Signs: Vital Signs x48h Temp Pulse Resp BP Pulse Ox 03/31/25 14:14 95 28 H 125/66 93 03/31/25 14:10 37.5 C 03/31/25 11:36 37.7 C 93 16 126/80 94 Constitutional normal general appearance He is alert and oriented to person and place but not time or events Eyes PERRL Respiratory Rhonchorous throughout, nonlabored Cardiovascular normal heart rate noted and regular rhythm noted Results Vitals Vitals: Vital Signs - 24 hr 03/31/25 11:36 03/31/25 14:10 03/31/25 14:14 Temperature 37.7 C 37.5 C Temperature Source Oral Temporal Artery Scan Pulse Rate 93 95 Respiratory Rate 16 28 H Blood Pressure 126/80 125/66 O2 Saturation 94 93 O2 Source Room air Pain Intensity 0 Oxygen O2 Source Room air EKG (time done) 1411: EKG releavant findings:: EKG personally interpreted by author of this note. Relevant findings are: Sinus rhythm, possibly ectopic. Long IL interval. Borderline LAD. No ischemic changes. Labs Labs: Laboratory Tests 03/31/25 03/31/25 03/31/25 12:04 12:20 14:30 WBC 20.6 H RBC 4.54 L Hgb 14.0 Hct 44.0 MCV 96.9 H MCH 30.8 MCHC 31.8 L RDW 13.5 Plt Count 178 MPV 11.0 Neut # (Auto) 17.1 H Lymph # (Auto) 1.1 L Heard # (Auto) 2.0 H Eos # (Auto) 0.0 Baso # (Auto) 0.1 Absolute Nucleated RBC 0.00 Nucleated RBC % 0.0 Manual Slide Review Indicated RBC Morph Micro Appear 2+ ANISOCYTOSIS Sodium 140 Potassium 4.1 Chloride 108 Carbon Dioxide 26 Anion Gap 6.0 BUN 29 H Creatinine 1.6 H Estimated GFR (MDRD) 41 L Glucose 286 H Lactic Acid 1.6 Calcium 9.1 Total Bilirubin 0.5 AST 10 ALT 17 Alkaline Phosphatase 79 Total Protein 7.2 Albumin 3.3 Globulin 3.9 Albumin/Globulin Ratio 0.8 L Lipase 43 Urine Color YELLOW Urine Clarity CLOUDY Urine pH 6.0 Ur Specific [place] 1.015 Urine Protein 300 H Urine Glucose (UA) 100 H Urine Ketones 15 H Urine Occult Blood MODERATE Urine Nitrite NEGATIVE Urine Bilirubin NEGATIVE Urine Urobilinogen 0.2 (NORMAL) Ur Leukocyte Esterase MODERATE H Urine RBC TNTC H Urine WBC >25 H Ur Squamous Epith Cells RARE Squamous Amorphous Sediment Few Urine Bacteria Many H Urine Casts 0-2 Granular Casts Ur Microscopic Review INDICATED Urine Culture Comments INDICATED Urine Opiates Screen NEGATIVE Ur Buprenorphine Scrn NEGATIVE Ur Oxycodone Screen NEGATIVE Urine Methadone Screen NEGATIVE Urine Fentanyl Screen Negative Ur Barbiturates Screen NEGATIVE Ur Tricyclics Screen NEGATIVE Ur Phencyclidine Scrn NEGATIVE Ur Amphetamine Screen NEGATIVE U Methamphetamines Scrn NEGATIVE U Benzodiazepines Scrn NEGATIVE Urine Cocaine Screen NEGATIVE U Cannabinoids Screen NEGATIVE Ur Drug Screen Comment CUTOFF CONC BELOW: Ethyl Alcohol < 10.0 Rads (name of study) CT of the head and angiography of the head and neck is notable for atherosclerosis of both internal carotid arteries, no acute changes: Relevant Findings:: Final report received and EMP independent interpretation of test (NAD) CT Chest: Relevant Findings:: Final report received and EMP independent interpretati on of test (No pneumonia, there is some abnormal appearance of the upper abdomen near the pancreas which the radiologist did not document anything about.) Interpretation: 1. Mild centrilobular emphysema. Scattered small infiltrate versus atelectasis in bilateral lung razo as described above. No pleural effusion or pneumothorax. 2. Cardiomegaly with trace amount of pericardial effusion. No mediastinal or hilar lymphadenopathy. Small ill-defined 3. Chronic appearing anterior wedge compression deformity at T12 level. PD Medical Decision Making ED course ED course: 85-year-old gentleman comes in with mostly an encephalopathy, potentially a new left facial droop, but it sounds like the other parts of his neurologic exam are chronic since his prior stroke. He presents with confusion and weakness. He is more weak than normal and he is "usually sharp as a tack" per the son. He does not seem to have any new focal neurodeficits except for potentially a left facial droop. Differential would include stroke but given his temperature of 37.7, white count of 20,000, I have more of a suspicion for an infection. He has had a cough of late and his chest x-ray shows a potential right-sided pneumonia in the setting of also some cardiomegaly and pulmonary vascular congestion. Because of this sepsis time of onset 12:55 PM with resolution of his white count and I ordered blood cultures, lactate, and empiric ceftriaxone. Subsequently his urinalysis was positive for infection. There was a delay to reading his abdominal CT but I discussed it with Dr. Orlando and is consistent with pancreatitis. That said he has a negative lipase and no current abdominal pain or tenderness. Spoke with Dr. Blair for admission at 4:25 PM. The patient and family are counseled as to the diagnosis and need for admission. This document was made in part using voice recognition software, while efforts are made to proofread this document, sound alike an grammatical errors may occur. Discharge Plan Discharge Patient Disposition: 66 [facility] DC/Xfer Condition: Serious Clinical Impression: CKD (chronic kidney disease) Urinary tract infection Qualifiers: Urinary tract infection type: acute cystitis Hematuria presence: with hematuria Qualified Code(s): N30.01 - Acute cystitis with hematuria Sepsis Qualifiers: Sepsis type: sepsis due to unspecified organism Sepsis acute organ dysfunction status: with acute organ dysfunction Severe sepsis acute organ dysfunction type: encephalopathy Severe sepsis shock status: without septic shock Qualified Code(s): A41.9 - Sepsis, unspecified organism; R65.20 - Severe sepsis without septic shock; G93.41 - Metabolic encephalopathy Prescriptions: No Action Lactobacillus acidophilus 1 EACH tablet 1 ea PO DAILY Qty: 5 0RF PNV no.95-ferrous fumarate-FA 1 EACH tablet 1 ea PO DAILY Qty: 30 0RF furosemide 40 MG tablet 40 mg PO BID Rx Instructions: at 0800 and 1200 tamsulosin 0.4 MG capsule 1 cap PO DAILY Patient Comments: take 1 capsule by mouth once daily ibuprofen 800 MG tablet 800 mg PO Q8H PRN (Reason: PAIN &/OR FEVER) Qty: 30 0RF atorvastatin [Lipitor] 80 MG tablet 80 mg PO DAILY clopidogrel [Plavix] 75 MG tablet 75 mg PO DAILY aspirin [Mccreary Aspirin] 81 MG tablet,delayed release (DR/EC) 81 mg PO DAILY potassium chloride [Klor-Con M20] 20 MEQ tablet,ER particles/crystals 40 meq PO DAILY Rx Instructions: 40 MEQ in morn, 20 MEQ at noon amlodipine [Norvasc] 10 MG tablet 10 mg PO DAILY carbamide peroxide [Ear Drops (carbamide peroxide)] 200 DROPS/15 ML drops 5 drp EACHEAR BID Rx Instructions: LEFT ear insulin glargine [Lantus Solostar U-100 Insulin] 100 UNIT/ML insulin pen 15 unit subcut DAILY potassium chloride 20 MEQ tablet extended release 20 meq PO DAILY Rx Instructions: 40 MEQ in morn, 20 MEQ at noon Print Language: Latvian NIHSS Level of Consciousness Level of consciousness: (0) Alert, Keenly responsive LOC Questions: (2) Answers neither correct LOC Commands: (0) Performs both correctly Gaze Best Gaze: (0) Normal Visual Visual: (0) No loss Facial Palsy Facial Palsy: (1) Minor paralysis Motor Arms (both separate) Motor Arm (right): (0) No drift Motor Arm (left): (0) No drift Motor Legs (both separate) Motor Leg (right): (2) Some effort against gravity Motor Leg (left): (2) Some effort against gravity Limb Ataxia Limb Ataxia: (0) Absent Sensory Sensory: (0) Normal Best Language Best Language: (0) No aphasia Dysarthria Dysarthria: (0) Normal Extinction and Inattention (formally neg Extinction and inattention: (0) No abnormality Total Score/Results Total Score/Result: 7
[2025-03-31 12:10] LABS: HCT - HEMATOCRIT 44.0 % (42.0-52.0); HGB - HEMOGLOBIN 14.0 g/dL (14.0-18.0); MEAN PLATELET VOLUME 11.0 fL (7.4-11.4); NRBC ABSOLUTE COUNT (AUTO) 0.00 x10^3/uL; NUCLEATED RED BLOOD CELLS AUTO 0.0 /100WBC; PLT - PLATELET COUNT 178 10^3/uL (130-450); RED CELL DISTRIBUTION WIDTH 13.5 % (12.0-15.0)
--- NOTE | 2025-03-31 12:19 | XRAY Report ---
PROCEDURE: XR Chest 1V INDICATIONS: cough TECHNIQUE: One view of the chest was acquired. COMPARISON: 02/22/2022 FINDINGS: Surgical changes and devices: None. Lungs and pleura: No pleural effusions or pneumothorax. There is pulmonary vascular congestion. Right perihilar infiltrates cannot be excluded. Pulmonary edema is also seen. Mediastinum: Mediastinal contours appear normal. Heart size is enlarged. Bones and chest wall: No suspicious bony lesions. Overlying soft tissues appear unremarkable. IMPRESSION: Cardiomegaly and pulmonary vascular congestion with suggestion of pulmonary edema. Superimposed right perihilar infiltrates cannot be excluded. No pleural effusion or pneumothorax. Reviewed by: Teo Lawrence MD on 03/31/2025 12:15 PM PDT Approved by: Teo Lawrence MD on 03/31/2025 12:15 PM PDT Station ID: [id number]
[2025-03-31 12:22] LABS: SLIDE REVIEW? Indicated
[2025-03-31 12:34] LABS: ALT ALANINE AMINOTRANSFERASE 17 IU/L (10-60); AST ASPARTATE AMINOTRANSFERASE 10 IU/L (10-42); BUN - BLOOD UREA NITROGEN 29 mg/dL (6-20); CARBON DIOXIDE - CO2 26 mmol/L (21-32); CREATININE 1.6 mg/dL (0.6-1.3); ETOH - ETHANOL < 10.0 mg/dL; GFR - MDRD 41 (>89)
[2025-03-31 12:39] LABS: RBC MORPHOLOGY (MULTIPLE) 2+ ANISOCYTOSIS (NORMAL)
--- NOTE | 2025-03-31 13:40 | CT Report ---
PROCEDURE: CT Head WO INDICATIONS: confusion TECHNIQUE: CT of the head was performed, without intravenous contrast. Reformats: Coronal and sagittal. For radiation dose reduction, the following was used: automated exposure control, adjustment of mA and/or kV according to patient size. COMPARISON: 11/17/2023 CT head FINDINGS: Image quality: Diagnostic. CSF spaces: Basal cisterns are patent. No extra-axial fluid collections. Similar mild enlargement of the ventricles since prior CT 11/17/2023. Brain: No midline shift. No intracranial mass effect or hemorrhage. Cabrera- white matter interface is normal. Age appropriate volume loss and periventricular white matter hypoattenuation, likely chronic ischemic change. Skull and face: Calvarium and visualized facial bones are intact, without suspicious lesions. Sinuses: Visualized sinuses and mastoids are clear. IMPRESSION: No acute intracranial pathology. Reviewed by: Anca Barboza MD, PhD on 03/31/2025 1:37 PM PDT Approved by: Anca Barboza MD, PhD on 03/31/2025 1:37 PM PDT Station ID: [id number]
--- NOTE | 2025-03-31 13:46 | CT Report ---
PROCEDURE: CT Angio Head/Neck INDICATIONS: CVA sx CONTRAST: Omni 300 80ml TECHNIQUE: After the administration of intravenous contrast, images were acquired from the aortic arch through the [place] of [place]. 3-dimensional oxdkzwy-vkxmlwxhe-qypzbrzfhg (MIP) and volume rendering reformats were acquired of the central intracranial vasculature and neck separately. COMPARISON: None. FINDINGS: Image quality: Diagnostic. Cerebral CT Angiogram: Internal carotid arteries: No acute findings. Intracranial ICA are patent with no significant stenosis. No occlusion. No aneurysm. Anterior cerebral arteries: Unremarkable. No significant stenosis. No occlusion. No aneurysm. Middle cerebral arteries: Unremarkable. No significant stenosis. No occlusion. No aneurysm. Posterior cerebral arteries: Unremarkable. No significant stenosis. No occlusion. No aneurysm. Basilar artery: Unremarkable. No significant stenosis. No occlusion. No aneurysm. Vertebral arteries: Unremarkable as visualized. Dural venous sinuses: Unremarkable given phase of enhancement. Other: Arterial phase appearance of the brain parenchyma is unremarkable. Neck CT Angiogram: Internal carotid arteries: Atherosclerotic calcifications are noted involving proximal bilateral internal carotid arteries with up to 50% stenosis in proximal left internal carotid artery and less than 50% stenosis in proximal right internal carotid artery. No dissection or occlusion. Common carotid arteries: Unremarkable. No significant stenosis. No dissection or occlusion. External carotid arteries: No significant stenosis. No occlusion. Vertebral arteries: Unremarkable. No significant stenosis. No dissection or occlusion. Aortic Arch and Mediastinum: Partially visualized aortic arch unremarkable without evidence of aneurysm. Origins of the great vessels unremarkable. Other: Arterial phase soft tissues of the neck and chest are unremarkable. IMPRESSION: 1. No hemodynamically significant stenosis or aneurysm is seen in the intracranial circulation. 2. Atherosclerotic plaques involving proximal left internal carotid artery with up to 50% stenosis. 3. Atherosclerotic plaques involving the proximal right internal carotid artery with less than 50% stenosis. 4. No other hemodynamically significant stenosis is seen in bilateral neck arteries. The estimate of stenosis included in the report of the imaging study was calculated using the NASCET method Reviewed by: Teo Lawrence MD on 03/31/2025 1:42 PM PDT Approved by: Teo Lawrence MD on 03/31/2025 1:42 PM PDT Station ID: [id number]
--- NOTE | 2025-03-31 13:53 | CT Report ---
PROCEDURE: CT Chest WO INDICATIONS: cough, abn cxr TECHNIQUE: A CT scan of the chest was performed. Intravenous contrast media was not administered. Images were recorded and evaluated at appropriate window settings. Reformats: axial MIP of the chest, coronal and sagittal. For radiation dose reduction, the following was used: automated exposure control, adjustment of mA and/or kV according to patient size. COMPARISON: CT lumbar spine dated 11/17/2023. FINDINGS: Image quality: Diagnostic. Chest wall and lower neck: No thyroid nodule which requires sonographic follow up. No axillary or supraclavicular adenopathy by size. Lungs and pleura: Small ill-defined airspace opacities are seen scattered in bilateral mid to lower lung zone and in the lateral aspect of the right upper lobe. Mild centrilobular emphysema. No pleural effusion or pneumothorax. No suspicious pulmonary nodules are seen. Mediastinum: Heart size is enlarged with trace pericardial effusion. No large vessel abnormality. No mediastinal adenopathy by size criteria. Small hiatal hernia. Bones: No aggressive osseous abnormality. Chronic appearing compression deformity at T12 level is seen unchanged from prior study. Upper Abdomen: Please correlate with CT of the abdomen and pelvis study from the same day. IMPRESSION: 1. Mild centrilobular emphysema. Scattered small infiltrate versus atelectasis in bilateral lung razo as described above. No pleural effusion or pneumothorax. 2. Cardiomegaly with trace amount of pericardial effusion. No mediastinal or hilar lymphadenopathy. Small ill-defined 3. Chronic appearing anterior wedge compression deformity at T12 level. Reviewed by: Teo Lawrence MD on 03/31/2025 1:49 PM PDT Approved by: Teo Lawrence MD on 03/31/2025 1:49 PM PDT Station ID: [id number]
[2025-03-31] MEDS: cefTRIAXone 1 GM VIAL IVP STA (14:23)
[2025-03-31 15:20] LABS: OCCULT BLOOD,URINE MODERATE (NEGATIVE)
[2025-03-31 15:21] LABS: GLUCOSE, URINE (UA) 100 mg/dL (NEGATIVE); KETONES,URINE (UA) 15 mg/dL (NEGATIVE)
[2025-03-31 15:34] LABS: AMPHETAMINE SCREEN,URINE NEGATIVE (NEGATIVE); BARBITURATE SCREEN,UR NEGATIVE (NEGATIVE); BENZODIAZEPINES SCREEN, URINE NEGATIVE (NEGATIVE); BUPRENORPHINE SCREEN, URINE NEGATIVE (NEGATIVE); COCAINE SCREEN URINE NEGATIVE (NEGATIVE); METHADONE SCREEN, URINE NEGATIVE (NEGATIVE); METHAMPHETAMINES SCREEN, URINE NEGATIVE (NEGATIVE); OPIATE SCREEN, URINE NEGATIVE (NEGATIVE); THC CANNABINOID SCREEN, URINE NEGATIVE (NEGATIVE)
[2025-03-31 15:47] LABS: AMORPHOUS SEDIMENT,UR Few /LPF; SQUAMOUS EPITHELIAL CELL,UR RARE Squamous (<= Few)
[2025-03-31 15:48] LABS: CASTS, URINE 0-2 Granular Casts /LPF
--- NOTE | 2025-03-31 16:41 | CT Report ---
PROCEDURE: CT Abdomen/Pelvis W INDICATIONS: IV only, sepsis unknown source CONTRAST: Omni 300 80ml TECHNIQUE: After the administration of intravenous contrast, a CT scan of the abdomen and pelvis was performed. Images were recorded and evaluated at appropriate window settings. Reformats: coronal and sagittal. For radiation dose reduction, the following was used: automated exposure control, adjustment of mA and/or kV according to patient size. COMPARISON: 02/22/2022, 11/17/2023 FINDINGS: Image quality: Diagnostic. Lower chest: Cardiomegaly. Bibasilar interstitial thickening of hypoventilation.. Liver: No solid mass. Occasional subcentimeter hypodensities, presumably cysts. Gallbladder: Decompressed. 5 mm dependent calcification in the neck. No pericholecystic inflammation. Biliary tree: No intrahepatic or extrahepatic dilation, accounting for age. Spleen: No splenomegaly. Pancreas: The distal pancreas is normal. There is diffuse enlargement, fat infiltration and moderate fat stranding involving the head and uncinate process. No pancreatic ductal dilatation or calcifications. No visible cystic or solid mass. No peripancreatic fluid collections. Adrenals: No adrenal nodule. Kidneys and ureters: Symmetric enhancement. No hydronephrosis or nephrolithiasis. No solid mass or cyst requiring follow-up. Normal caliber ureters. Stomach, bowel and peritoneum: The stomach is predominantly decompressed. There is no significant duodenal wall thickening although the fat plane between the pancreas and second portion of the duodenum is indistinct. Remainder of the small and large bowel loops are within normal limits. Normal appendix. No pathologic free fluid. No free air or contained extraluminal gas. Mild generalized inflammation layering along the posterior peritoneal fascia. No focal fluid collections. Lymph nodes: No central or retroperitoneal adenopathy. Vessels: Normal caliber abdominal aorta, IVC, and portal vein. Mild abdominal aortic calcification. PELVIS Reproductive organs: Diminutive or absent prostate gland. Bladder: The urinary bladder is decompressed and there is circumferential wall thickening. Evidence of several tiny bladder diverticula. Mild perivesicular inflammation. Pelvic lymph nodes: No pelvic adenopathy by size criteria. Bones: Multiple thoracic and lumbar vertebral body compression fractures of varying ages. L3 and L4 have developed since 11/17/2023. Other: No significant ventral or inguinal hernia. IMPRESSION: Mild inflammation most suggestive of acute interstitial pancreatitis involving the head and uncinate process. No evidence of pancreatic necrosis or peripancreatic fluid collection at this point. Clinical follow-up recommended. Probable mild reactive duodenitis without obstruction. Development of L3 and L4 compression fractures since 11/17/2023. Discussed with Dr. Hatfield in the emergency room at 1622 hours. Reviewed by: Nichelle Orlando MD on 03/31/2025 4:37 PM PDT Approved by: Nichelle Orlando MD on 03/31/2025 4:37 PM PDT Station ID: [id number]
[2025-03-31 17:34] LABS: B. PARAPERTUSSIS- RESP PCR PAN NOT DETECTED; B. PERTUSSIS- RESP PCR PANEL NOT DETECTED; C. PNEUMONIAE- RESP PCR PANEL NOT DETECTED; CORONAVIRUS 229E-RESP PCR NOT DETECTED; CORONAVIRUS HKU1-RESP PCR NOT DETECTED; CORONAVIRUS NL63-RESP PCR NOT DETECTED; CORONAVIRUS OC43-RESP PCR NOT DETECTED; HUMAN METAPNEUMOVIRUS NOT DETECTED; INFLUENZA A- RESP PCR PANEL NOT DETECTED; INFLUENZA B - RESP PCR PANEL NOT DETECTED; M. PNEUMONIAE- RESP PCR PANEL NOT DETECTED; PARAINFLUENZA VIRUS 1 NOT DETECTED; PARAINFLUENZA VIRUS 2 NOT DETECTED; PARAINFLUENZA VIRUS 4 NOT DETECTED; RHINOVIRUS/ENTEROVIRUS DETECTED; RSV- RESP PCR PANEL NOT DETECTED; SARS-CoV-2 -RESP PCR PANEL NOT DETECTED
--- NOTE | 2025-03-31 20:59 | HISTORY & PHYSICAL EXAMINATION ---
Chief Complaint Chief Complaint Chief Complaint: Altered mental status History of Present Illness Admitted From Admitted From:: [facility] History Obtained From Records Reviewed: paperwork from [facility] History obtained from: patient and phone conversation with daughter History of Present Illness HPI Comment/Other: 85-year-old male with a past medical history of stroke on dual antiplatelet therapy, bedbound, diabetes mellitus, chronic lower extremity edema with comfort measures POL presents to the emergency department with confusion for 1 day. Also has had a cough and a runny nose. He was evaluated in the emergency department with a CT of the head which was unremarkable, a CT of the chest showing centrilobular emphysema scattered small infiltrates versus atelectasis in bilateral lung razo no pleural effusion or pneumothorax. No pulmonary embolus. At baseline he lives at [facility]. He is nonambulatory uses a sit to stand lift to get to the toilet. His daughter relates to me that toileting has very difficult recently and she requests placement of a Zhou catheter. POLST status: DNR comfort focused treatment Surrogate decision maker: Daughter Asim Marianne/Halgy Home Medications Ambulatory Orders Medication Instructions Recorded Confirmed Lactobacillus acidophilus 2 1 ea PO DAILY #5 tabs 110 11/1211/17/23 billion cell tablet vit no.95-ferrous 1 ea PO DAILY #30 tabs 110 11/1211/17/23 fumarate 28 mg-folic acid 800 mcg tablet furosemide 40 mg tablet 40 mg PO BID 05/07/21 tamsulosin 0.4 mg capsule 1 cap PO DAILY 05/07/2110/25 ibuprofen 800 mg tablet 800 mg PO Q8H PRN PAIN &/OR FEVER 10/31/22 11/17/23 #30 tabs amlodipine 10 mg tablet (Norvasc) 10 mg PO DAILY 11/1611/17/23 aspirin 81 mg tablet,delayed 81 mg PO DAILY 11/17/23 0 11/17/23 release ([place] Aspirin) atorvastatin 80 mg tablet (Lipitor) 80 mg PO DAILY 11/17/23 carbamide peroxide 6.5 % ear drops 5 drp EACHEAR BID 0 11/17/23 11/17/23 (Ear Drops (carbamide peroxide)) clopidogrel 75 mg tablet (Plavix) 75 mg PO DAILY 11/1611/17/23 insulin glargine 100 unit/mL (3 15 unit subcut DAILY 0 11/17/23 11/17/23 mL) subcutaneous pen (Lantus Solostar U-100 Insulin) potassium chloride 20 mEq 20 meq PO DAILY 11/17/23 tablet,extended release potassium chloride 20 mEq 40 meq PO DAILY 11/17/23 tablet,extended release(part/cryst) (Klor-Con M) Allergies Allergies Allergy/AdvReac Type Severity Reaction Status Date / Time No Known Drug Allergies Allergy Verified 11/17/23 13:58 PFSH Active Problems All Active Problems (Updated 03/31/25 @ 21:29 by SHIMON Hayden) Rhinovirus infection (Acute) Sepsis (Acute) BPH (benign prostatic hyperplasia) (Acute) Anasarca (Acute) CKD (chronic kidney disease) (Acute) Diabetes mellitus (Acute) Inability to ambulate due to right knee (Acute) Urinary tract infection (Acute) Dehydration (Acute) Hypokalemia (Acute) Acute kidney injury (Acute) Alcohol use (Acute) Bilateral leg pain (Acute) Social History Social History Do you dip or chew tobacco?: No Living arrangement: At home Living Condition: With spouse/s.o. Do you feel safe in your home environment?: Yes History of physical, verbal, emotional, or financial abuse?: No Frequency: Occasional POLST Patient has POLST: Yes POLST CPR Status: Do Not Attempt Resuscitation (DNAR) / Allow Natural Level of Medical Intervention: Comfort Focused Treatment Review of Systems Constitutional Reports: Malaise and Poor appetite Eyes Denies: Field loss or Vision loss Ears, nose, mouth, and throat Reports: Nasal discharge and Nasal congestion Cardiovascular Denies: chest pain or shortness of breath when lying down Respiratory Reports: Cough and Chest congestion; Denies: Sputum production Gastrointestinal Denies: Abdominal pain, Abdominal distention, Nausea or Vomiting Genitourinary Denies: Painful urination Integumentary/Breast Denies: Rash Prior Level of Functionality: discussed with daughter- needs max assist to chair. uses sit to stand lift to toilet for BMs. mainly bed bound. does not ambulate. resident of [facility] Exam Exam Vital Signs: Vital Signs x48h Temp Pulse Resp BP Pulse Ox 03/31/25 19:21 93 29 H 149/86 H 93 10/06/25 18:14 91 25 H 169/92 H 92 03/31/25 18:00 82 18 169/92 H 95 03/31/25 16:13 85 32 H 147/85 H 92 03/31/25 16:13 82 25 H 147/85 H 92 03/31/25 16:13 88 27 H 147/85 H 91 L 03/31/25 16:13 85 34 H 147/85 H 93 03/31/25 14:14 82 23 125/66 94 03/31/25 14:14 95 28 H 125/66 93 03/31/25 14:10 37.5 C Constitutional normal general appearance and no apparent distress sleeping, awakens to voice HENMT normocephalic, hearing grossly normal bilaterally, external ears normal and oral mucous membranes normal Eyes PERRL and conjunctivae normal Neck/C-Spine visual inspection normal Lymph no lymphadenopathy noted Chest palpation of chest normal Respiratory rhonchi bilaterally, tachypnea, with normal saturation on room air. Cardiovascular normal heart rate noted Gastrointestinal abdomen appears distended. patient states that it feels normal for him Neurology no movement abnormality noted, no focal motor deficit noted, no sensory deficits noted and GCS 15 Psychiatry mental status grossly normal oriented to self and place. cooperative. good eye contact. Skin skin color normal severe venous stasis changes at lower extremities, scaling of the skin of the legs with pitting edema Sepsis Event Note (H) Evaluation Current Stage of Sepsis: Sepsis Possible source of Sepsis: positive Genitourinary Confirmed Source and Organism (if known) of Sepsis: positive UA Sepsis Criteria Sepsis Criteria: Recorded Respiratory Rate greater than 20 and WBC count greater than 12,000 or less than 4000 Conclusion/Plan Problem List (1) Sepsis: Plan: Leukocytosis and positive urinalysis. Patient with a history of BPH. Urine culture is pending at this time. Blood cultures were sent from the emergency department prior to initiation of antibiotic therapy. Patient seems to have had some alteration in mental status which seems to be improving as the day goes on. I discussed his situation with his daughter who was with him earlier in the day and she was surprised to hear that he was is oriented as he was at this time. He is able to tell me where she lives and what her name is he was not able to do this earlier today. I believe his sepsis is secondary to his urinary tract infection. Discussed with Dr. Hatfield in the emergency department decision was made to admit this patient to inpatient status for treatment of his urinary sepsis as well as supportive care for his rhinovirus infection. I discussed the plan of care with his daughter this evening she is in agreement Qualifiers: Sepsis acute organ dysfunction status: with acute organ dysfunction S epsis type: sepsis due to unspecified organism Severe sepsis acute organ dysfunction type: encephalopathy Severe sepsis shock status: without septic shock Qualified Code(s): A41.9 - Sepsis, unspecified organism; R65.20 - Severe sepsis without septic shock; G93.41 - Metabolic encephalopathy (2) Urinary tract infection: Plan: Urine shows ketones, moderate leukocyte esterase too numerous to count red blood cells and greater than 25 white blood cells per high-powered field. There are many bacteria seen on microscopic analysis. Urinary culture was sent. He is daughter is requesting placement of Zhou catheter. We will do this as this patient is comfort measures only and this would contribute to his comfort greatly. Most recent urine culture in our system is from April 2020 showing E. coli which is pansensitive. Therefore I am placing the patient on Rocephin Qualifiers: Hematuria presence: with hematuria Urinary tract infection type: acute cystitis Qualified Code(s): N30.01 - Acute cystitis with hematuria (3) Rhinovirus infection: Plan: Patient has cough and congestion for several days now. He has rhonchi on lung exam. His oxygen saturations are normal on room air. He is tachypneic on exam. I will give him guaifenesin every 4 hours. I have also ordered DuoNeb treatments to try to increase his level of comfort. (4) Diabetes mellitus: Plan: At home he is taking glargine insulin 15 units subcutaneously every morning. I am placing him on sliding scale insulin. I am placing him on a carb controlled diet. I will order hemoglobin A1c with a.m. labs. Plan I have spent 78 minutes in the care of this patient today. This includes time [id number], review and ordering of diagnostic imaging and laboratory studies and consultation with other providers. Monitoring the patient's signs symptoms, evaluation of medication effectiveness and patient's response to treatment. Lab Results Lab results reviewed: Yes 03/31/25 12:04 03/31/25 12:04 Diagnostic Imaging Results Diagnostic Imaging Results: positive Final report reviewed Diagnostic Imaging Results Comments: CT chest: Emphysema, scattered small infiltrate versus atelectasis bilateral I would correlate this with his viral infection Abdomen/pelvis CT there is some suggestion of pancreatitis, however his abdomen is not tender and his lipase is within normal limits. Mild reactive duodenitis, chronic compression fractures Head CT: No acute intracranial pathology CTA of the head and neck no significant stenosis identified. Core Measures Anticipated LOS I expect patient to be DC'd or transferred within 96 hours.: Yes DVT/VTE - Prophylaxis VTE/DVT Device ordered at admit?: Yes VTE/DVT Prophylaxis med ordered at admit?: Yes
[2025-03-31] MEDS ORDERED: SODIUM CHLORIDE FLUSH 0.9% 10 ML SYRINGE IVP PRN (22:45)
[2025-03-31] MEDS ORDERED: ONDANSETRON 4 MG/2 ML VIAL IVP PRN (22:45)
[2025-03-31] MEDS ORDERED: oxyCODONE 5 MG TABLET PO PRN (22:45)
[2025-03-31] MEDS ORDERED: ACETAMINOPHEN 325 MG TABLET PO PRN (22:45)
[2025-03-31] MEDS ORDERED: IPRATROPIUM/ALBUTEROL 3 ML NEB INH PRN (22:45)
[2025-04-01] MEDS: guaiFENesin 100 MG/5 ML UDC PO SCH (00:56)
[2025-04-01] MEDS: SODIUM CHLORIDE FLUSH 0.9% 10 ML SYRINGE IVP SCH (00:56)
[2025-04-01] MEDS: FUROSEMIDE 40 MG TABLET PO SCH ×2 (01:06→03:31)
[2025-04-01] MEDS: INSULIN GLARGINE-YFGN 300 UNIT/3 ML PEN SUBQ SCH ×3 (01:12→21:41)
[2025-04-01] MEDS: INSULIN LISPRO 300 UNIT/3 ML PEN SUBQ SCH ×3 (01:13→17:36)
[2025-04-01 04:54] LABS: HCT - HEMATOCRIT 42.1 % (42.0-52.0); HGB - HEMOGLOBIN 13.7 g/dL (14.0-18.0); MEAN PLATELET VOLUME 11.5 fL (7.4-11.4); NRBC ABSOLUTE COUNT (AUTO) 0.00 x10^3/uL; NUCLEATED RED BLOOD CELLS AUTO 0.0 /100WBC; PLT - PLATELET COUNT 158 10^3/uL (130-450); RED CELL DISTRIBUTION WIDTH 13.6 % (12.0-15.0)
[2025-04-01 05:13] LABS: BUN - BLOOD UREA NITROGEN 26.0 mg/dL (6-20); CARBON DIOXIDE - CO2 24.0 mmol/L (21-32); CREATININE 1.4 mg/dL (0.6-1.3); GFR - MDRD 48.0 (>89)
[2025-04-01] MEDS: SPIRONOLACTONE 25 MG TABLET PO SCH (06:08)
[2025-04-01] MEDS: SENNA 8.6 MG TABLET PO SCH (08:39)
[2025-04-01] MEDS: cefTRIAXone 1 GM in SODIUM CHLORIDE 0.9% MINIBAG 100 ML IV SCH (08:39)
[2025-04-01] MEDS: POTASSIUM CHLORIDE 20 MEQ TABLET PO SCH (08:40)
[2025-04-01] MEDS: ENOXAPARIN 40 MG/0.4 ML SYRINGE SUBQ SCH (08:40)
[2025-04-01] MEDS: CLOPIDOGREL 75 MG TABLET PO SCH (08:41)
[2025-04-01 09:44] LABS: ESTIMATED AVERAGE GLUCOSE 163 mg/dL (70-100); HEMOGLOBIN A1c% 7.3 % (4.27-6.07)
--- NOTE | 2025-04-01 13:18 | PHARMACY PROGRESS NOTE ---
Best Possible Medication History Admit Date and Time: 03/31/252043 Home Medications Medication Instructions Recorded Confirmed Type Lactobacillus acidophilus 2 1 ea PO DAILY #5 tabs 11/1204/01/25 Rx billion cell tablet furosemide 40 mg tablet 40 mg PO BID 05/07/21 History tamsulosin 0.4 mg capsule 1 cap PO DAILY 05/07/2101/17 History amlodipine 10 mg tablet (Norvasc) 10 mg PO DAILY 11/1604/01/25 History aspirin 81 mg tablet,delayed 81 mg PO DAILY 11/17/23 1 History release ([place] Aspirin) atorvastatin 80 mg tablet (Lipitor) 80 mg PO DAILY 04/01/25 History clopidogrel 75 mg tablet (Plavix) 75 mg PO DAILY 11/1604/01/25 History insulin glargine 100 unit/mL (3 15 unit subcut DAILY 0 11/17/23 04/01/25 History mL) subcutaneous pen (Lantus Solostar U-100 Insulin) potassium chloride 20 mEq 40 meq PO DAILY 11/17/2301/17 History tablet,extended release(part/cryst) (Klor-Con M) alendronate 70 mg tablet 70 mg PO Q7D 04/01/25 History lisinopril 5 mg tablet 5 mg PO DAILY 04/01/2504/01 History spironolactone 25 mg tablet 25 mg PO BID 04/01/2501/17 History Processed by: Pharmacy Medications reviewed in ED?: Yes Medication History completed: Yes Patient Interview: Pt unable to participate Secondary Source(s): Insurance records and Facility MAR as ONLY source [facility] Statement: As the person ultimately responsible for medication therapy, providers are able to order a medication from an existing home medication list in [facility] via the "Reconcile Routine" prior to Confirmation of that medication by call center support consultant. Such practice is discouraged except when the physician, in their clinical judgment, deems that a medical need exists for a medication without regard to previous use.
[2025-04-01] MEDS: COD LIVER OIL/ZINC OXIDE 113 GM TUBE TOP PRN (13:52)
--- NOTE | 2025-04-01 15:14 | PROVIDER PROGRESS NOTE ---
Subjective Prog Note Date Prog Note Date: 04/01/25 Subjective Subjective: Today, he is aware the he is in the hospital, but he thinks he is in [place], the town [place]. When I ask him how old he is, he thinks he is 65. His daughter relates his history to me. He had a large kidney stone and the plan was to have surgery to get rid of the stone. but then, he had a stroke, and everything fell apart. he had the stroke in 2022, then he went to rehab and to live at [facility]. From there, multiple falls leading to compression fractures, and now bed bound living at [facility]. She wants us to do anything we can do to increase his comfort. We discussed keeping the flores catheter, and although it contributes risk WRT UTI, it provides comfort with hygiene. At this point, he is not ambulatory. he is sit to stand lift to bedside commode, and has been [facility]. Current Medications Current Medications Current Medications: Current Medications Generic Name Dose Route Start Last Admin Trade Name Freq PRN Reason Stop Dose Admin Acetaminophen 650 mg 03/31/25 22:45 Acetaminophen 325 Mg Tablet PO Q4HR PRN Pain 1 to 4, or Fever Albuterol/Ipratropium 3 ml 03/31/25 22:45 Ipratropium/Albuterol 3 Ml Neb INH Q4HR PRN Wheezing Clopidogrel Bisulfate 75 mg 04/01/25 09:00 04/01/25 08:41 Clopidogrel 75 Mg Tablet PO 75 mg DAILY ROBERT Administration Enoxaparin Sodium 40 mg 04/01/25 09:00 04/01/25 08:40 Enoxaparin 40 Mg/0.4 Ml Syringe SUBQ 40 mg DAILY ROBERT Administration Furosemide 40 mg 04/01/25 01:00 04/01/25 08:40 Furosemide 40 Mg Tablet PO 40 mg BID ROBERT Administration Guaifenesin 200 mg 03/31/25 21:00 04/01/25 13:52 Guaifenesin 100 Mg/5 Ml Udc PO 200 mg QID ROBERT Administration Ceftriaxone Sodium 1 gm/ 100 mls @ 200 mls/hr 04/01/25 09:00 04/01/25 09:15 Sodium Chloride IV Infused DAILY ROBERT Infusion Insulin Glargine-yfgn 10 unit 04/01/25 01:00 04/01/25 01:12 Insulin Glargine-Yfgn 300 Unit/3 Ml Pen SUBQ 10 unit QPM ROBERT Administration Insulin Human Lispro 1 - 9 unit 04/01/25 17:00 Insulin Lispro 300 Unit/3 Ml Pen SUBQ 0800,1200,1700,2100 [facility] Protocol Ondansetron HCl 4 mg 03/31/25 22:45 Ondansetron 4 Mg/2 Ml Vial IVP Q6HR PRN Nausea / Vomiting Oxycodone HCl 5 mg 03/31/25 22:45 Oxycodone 5 Mg Tablet PO Q4HR PRN Pain 5 to 7 Polyethylene Glycol 17 gm 04/01/25 09:00 04/01/25 08:40 Polyethylene Glycol 3350 17 Gm Packet PO 17 gm DAILY ROBERT Administration Potassium Chloride 40 meq 04/01/25 09:00 04/01/25 08:40 Potassium Chloride 20 Meq Tablet PO 40 meq DAILY ROBERT Administration Senna 8.6 - 17.2 mg 04/01/25 09:00 04/01/25 08:39 Senna 8.6 Mg Tablet PO 8.6 mg DAILY ROBERT Administration Sodium Chloride 10 ml 03/31/25 22:45 Sodium Chloride Flush 0.9% 10 Ml Syringe IVP PRN PRN NEEDED PER PROVIDER ORDERS Sodium Chloride 10 ml 04/01/25 01:00 04/01/25 08:41 Sodium Chloride Flush 0.9% 10 Ml Syringe IVP 10 ml 0100,0900,1700 ROBERT Administration Spironolactone 25 mg 04/01/25 06:00 04/01/25 13:53 Spironolactone 25 Mg Tablet PO 25 mg BIDDIURETIC ROBERT Administration Zinc Oxide 113 gm 04/01/25 13:45 04/01/25 13:52 Cod Liver Oil/Zinc Oxide 113 Gm Tube TOP 1 applic PRN PRN Administration Skin Care Objective Vital Signs/Intake & Output Reviewed Vital Signs: Yes Vital Signs: Vital Signs x48h Temp Pulse Resp BP Pulse Ox 04/01/25 09:40 36.9 C 95 18 129/68 92 Intake & Output: Intake & Output 03/29/25 03/30/25 03/31/25 04/01/25 23:59 23:59 23:59 23:59 Intake Total 840 / 840 Output Total 300 / 300 1225 / 1225 Balance -300 / -300 -385 / -385 Weight (kg) 145.15 kg 125 kg Objective General Appearance: positive No acute distress and Alert Eyes Bilateral: positive Normal inspection ENT: positive ENT inspection nml Neck: positive Nml inspection Respiratory: positive No respiratory distress and Rhonchi (bilateral. ) Cardiovascular: positive Regular rate & rhythm Abdomen: positive Non-tender and Other (obese) Skin: positive Color nml and Other (plaquelike scales on bilateral lower legs, anterior) Extremities: positive Pedal edema (severe with venous stasis skin changes, mild erythema and warmth, likely chronic. ) Neurologic/Psychiatric: positive Disoriented to place and Disoriented to time Lab Results 04/01/25 04:47 04/01/25 04:47 Other Labs: Lab Results x24hrs 04/01/25 04/01/25 04/01/25 Range/Units 07:56 04:47 00:49 WBC 17.1 H (4.8-10.8) x10^3/uL RBC 4.37 L (4.70-6.10) 10^6/uL Hgb 13.7 L (14.0-18.0) g/dL Hct 42.1 (42.0-52.0) % MCV 96.3 H (80.0-94.0) fL MCH 31.4 H (27.0-31.0) pg MCHC 32.5 (32.0-36.0) g/dL RDW 13.6 (12.0-15.0) % Plt Count 158 (130-450) 10^3/uL MPV 11.5 H (7.4-11.4) fL Neut # (Auto) 14.8 H (1.5-6.6) 10^3/uL Lymph # (Auto) 0.8 L (1.5-3.5) 10^3/uL [place] # (Auto) 1.2 H (0.0-1.0) 10^3/uL Eos # (Auto) 0.1 (0.0-0.7) 10^3/uL Baso # (Auto) 0.1 (0.0-0.1) 10^3/uL Absolute Nucleated RBC 0.00 x10^3/uL Nucleated RBC % 0.0 /100WBC Sodium 138 (135-145) mmol/L Potassium 3.9 (3.5-4.5) mmol/L Chloride 107 (101-111) mmol/L Carbon Dioxide 24 (21-32) mmol/L Anion Gap 7.0 (6-13) BUN 26 H (6-20) mg/dL Creatinine 1.4 H (0.6-1.3) mg/dL Estimated GFR (MDRD) 48 L (>89) Glucose 267 H (74-104) mg/dL POC Whole Bld Glucose 219 214 (70-100) mg/dL Estimat Average Glucose 163 H (70-100) mg/dL Hemoglobin A1c % 7.3 H (4.27-6.07) % Calcium 8.7 (8.5-10.3) mg/dL Urine Color Urine Clarity (CLEAR) Urine pH (5.0-7.5) PH Ur Specific [place] (1.002-1.030) Urine Protein (NEGATIVE) mg/dL Urine Glucose (UA) (NEGATIVE) mg/dL Urine Ketones (NEGATIVE) mg/dL Urine Occult Blood (NEGATIVE) Urine Nitrite (NEGATIVE) Urine Bilirubin (NEGATIVE) Urine Urobilinogen (NORMAL) E.U./dL Ur Leukocyte Esterase (NEGATIVE) Urine RBC (0-5) /HPF Urine WBC (0-3) /HPF Ur Squamous Epith Cells (<= Few) Amorphous Sediment /LPF Urine Bacteria (None Seen) /HPF Urine Casts /LPF Ur Microscopic Review Urine Culture Comments Nasal Adenovirus (PCR) Nasal B. parapertussis DNA (PCR) Nasal Coronavir 229E PCR Nasal Coronavir HKU1 PCR Nasal Coronavir NL63 PCR Nasal Coronavir OC43 PCR Nasal Enterovir/Rhinovir PCR Nasal Influenza B PCR Nasal Influenza A PCR Nasal Parainfluen 1 PCR Nasal Parainfluen 2 PCR Nasal Parainfluen 3 PCR Nasal Parainfluen 4 PCR Nasal RSV (PCR) Nasal B.pertussis DNA PCR Nasal C.pneumoniae (PCR) Mark Human Metapneumo PCR Nasal M.pneumoniae (PCR) Nasal SARS-CoV-2 (PCR) Urine Opiates Screen (NEGATIVE) Ur Buprenorphine Scrn (NEGATIVE) Ur Oxycodone Screen (NEGATIVE) Urine Methadone Screen (NEGATIVE) Urine Fentanyl Screen (NEGATIVE) Ur Barbiturates Screen (NEGATIVE) Ur Tricyclics Screen (NEGATIVE) Ur Phencyclidine Scrn (NEGATIVE) Ur Amphetamine Screen (NEGATIVE) U Methamphetamines Scrn (NEGATIVE) U Benzodiazepines Scrn (NEGATIVE) Urine Cocaine Screen (NEGATIVE) U Cannabinoids Screen (NEGATIVE) Ur Drug Screen Comment 03/31/25 03/31/25 Range/Units 16:30 14:30 WBC (4.8-10.8) x10^3/uL RBC (4.70-6.10) 10^6/uL Hgb (14.0-18.0) g/dL Hct (42.0-52.0) % MCV (80.0-94.0) fL MCH (27.0-31.0) pg MCHC (32.0-36.0) g/dL RDW (12.0-15.0) % Plt Count (130-450) 10^3/uL MPV (7.4-11.4) fL Neut # (Auto) (1.5-6.6) 10^3/uL Lymph # (Auto) (1.5-3.5) 10^3/uL [place] # (Auto) (0.0-1.0) 10^3/uL Eos # (Auto) (0.0-0.7) 10^3/uL Baso # (Auto) (0.0-0.1) 10^3/uL Absolute Nucleated RBC x10^3/uL Nucleated RBC % /100WBC Sodium (135-145) mmol/L Potassium (3.5-4.5) mmol/L Chloride (101-111) mmol/L Carbon Dioxide (21-32) mmol/L Anion Gap (6-13) BUN (6-20) mg/dL Creatinine (0.6-1.3) mg/dL Estimated GFR (MDRD) (>89) Glucose (74-104) mg/dL POC Whole Bld Glucose (70-100) mg/dL Estimat Average Glucose (70-100) mg/dL Hemoglobin A1c % (4.27-6.07) % Calcium (8.5-10.3) mg/dL Urine Color YELLOW Urine Clarity CLOUDY (CLEAR) Urine pH 6.0 (5.0-7.5) PH Ur Specific [place] 1.015 (1.002-1.030) Urine Protein 300 H (NEGATIVE) mg/dL Urine Glucose (UA) 100 H (NEGATIVE) mg/dL Urine Ketones 15 H (NEGATIVE) mg/dL Urine Occult Blood MODERATE (NEGATIVE) Urine Nitrite NEGATIVE (NEGATIVE) Urine Bilirubin NEGATIVE (NEGATIVE) Urine Urobilinogen 0.2 (NORMAL) (NORMAL) E.U./dL Ur Leukocyte Esterase MODERATE H (NEGATIVE) Urine RBC TNTC H (0-5) /HPF Urine WBC >25 H (0-3) /HPF Ur Squamous Epith Cells RARE Squamous (<= Few) Amorphous Sediment Few /LPF Urine Bacteria Many H (None Seen) /HPF Urine Casts 0-2 Granular Casts /LPF Ur Microscopic Review INDICATED Urine Culture Comments INDICATED Nasal Adenovirus (PCR) NOT DETECTED Nasal B. parapertussis DNA (PCR) NOT DETECTED Nasal Coronavir 229E PCR NOT DETECTED Nasal Coronavir HKU1 PCR NOT DETECTED Nasal Coronavir NL63 PCR NOT DETECTED Nasal Coronavir OC43 PCR NOT DETECTED Nasal Enterovir/Rhinovir PCR DETECTED A Nasal Influenza B PCR NOT DETECTED Nasal Influenza A PCR NOT DETECTED Nasal Parainfluen 1 PCR NOT DETECTED Nasal Parainfluen 2 PCR NOT DETECTED Nasal Parainfluen 3 PCR NOT DETECTED Nasal Parainfluen 4 PCR NOT DETECTED Nasal RSV (PCR) NOT DETECTED Nasal B.pertussis DNA PCR NOT DETECTED Nasal C.pneumoniae (PCR) NOT DETECTED Mark Human Metapneumo PCR NOT DETECTED Nasal M.pneumoniae (PCR) NOT DETECTED Nasal SARS-CoV-2 (PCR) NOT DETECTED Urine Opiates Screen NEGATIVE (NEGATIVE) Ur Buprenorphine Scrn NEGATIVE (NEGATIVE) Ur Oxycodone Screen NEGATIVE (NEGATIVE) Urine Methadone Screen NEGATIVE (NEGATIVE) Urine Fentanyl Screen Negative (NEGATIVE) Ur Barbiturates Screen NEGATIVE (NEGATIVE) Ur Tricyclics Screen NEGATIVE (NEGATIVE) Ur Phencyclidine Scrn NEGATIVE (NEGATIVE) Ur Amphetamine Screen NEGATIVE (NEGATIVE) U Methamphetamines Scrn NEGATIVE (NEGATIVE) U Benzodiazepines Scrn NEGATIVE (NEGATIVE) Urine Cocaine Screen NEGATIVE (NEGATIVE) U Cannabinoids Screen NEGATIVE (NEGATIVE) Ur Drug Screen Comment CUTOFF CONC BELOW: Sepsis Event Note (H) Evaluation Current Stage of Sepsis: Sepsis Possible source of Sepsis: positive Genitourinary Sepsis Criteria Sepsis Criteria: WBC count greater than 12,000 or less than 4000 Assessment/Plan Problem List (1) Sepsis: Impression: improving. WBC is improving, he is more comfortable as well. some mild confusion, which may be close to baseline, although he seems to orient to certain things (where his daughter lives). He is no longer tachypenic. Blood cultures with no growth for one day. Qualifiers: Sepsis acute organ dysfunction status: with acute organ dysfunction S epsis type: sepsis due to unspecified organism Severe sepsis acute organ dysfunction type: encephalopathy Severe sepsis shock status: without septic shock Qualified Code(s): A41.9 - Sepsis, unspecified organism; R65.20 - Severe sepsis without septic shock; G93.41 - Metabolic encephalopathy (2) Urinary tract infection: Impression: urine culture in progress. no results. therefore Rocephin is appropriate. Daughter prefers to leave indwelling flores. I think this is reasonable given his comfort care status. She does understand increased risk of urinary tract infections and sepsis. Qualifiers: Hematuria presence: with hematuria Urinary tract infection type: acute cystitis Qualified Code(s): N30.01 - Acute cystitis with hematuria (3) Rhinovirus infection: Impression: has been sick for several days, cough and runny nose, no fever. Continues to have some rhonchi on lung exam. no hypoxia. I am continuing duonebs PRN and robitussin as a mucolytic. no indication for abx or steroids, no history of COPD that he is aware of. (4) Diabetes mellitus: Impression: A1C is 7.3%. This is reasonable. Laboratory Tests 04/01/25 04/01/25 04/01/25 00:49 04:47 07:56 POC Whole Bld Glucose 214 219 Hemoglobin A1c % 7.3 H I had held his Glargine (his only DM med), 15u daily, but have asked to restart that this evening. He has been placed on SSI, and this has been escalated to moderate scale now (5) Hypertension: Impression: holding home amlodipine, as well as lisinopril 5mg. I have continued his lasix for his peripheral edema. Selected Entries 03/31/25 23:15 04/01/25 02:45 04/01/25 09:40 Pulse Rate [Brachial] 103 H 88 95 Blood Pressure [Left Brachial artery] 171/94 H 144/85 H 129/68 (6) Venous stasis: Impression: with lipodermatosclerosis with scaling of his skin. he has chronic edema, there is mild warmth and erythema, which I marked today. I do not think this is a cellulitis. This patient's diagnosis and treatment plan was discussed this AM with attending physician as a part of multi disciplinary rounding meeting. I have spent 51 minutes in the care of this patient today. This includes time [id number], review and ordering of diagnostic imaging and laboratory studies. Monitoring the patient's signs symptoms, evaluation of medication effectiveness and patient's response to treatment.
--- OUTSIDE RECORDS SUMMARY | 2025-04-01 19:33 | EXTERNAL MEDICAL SUMMARY RPT | Continuity of Care Document ---
Author Organization [facility] Address [address] [place] [id number] Phone Problems date description facility 2025-01-24 13:25 Anemia, unspecified [facility] 2025-01-24 13:25 Ess[facility] ([facility]io [facility] 07:52 Anemia, unspecified [facility] 2025 07:52 Essential (primary) hypertensio n [facility] 2025 07:53 Anemia, unspecified [facility] 2025 07:53 Essential (primary) [facility]ensio n [facility] 2025 16:26 Anemia, unspecified [facility] 2025 16:26 Essential (primary) hypertensio n [facility] 2025-02-12 14:52 Pain in left ankle and joints o f left foot [facility] 2025-02-12 14:52 Localized swelling, mass and brenna mp, left lower limb [facility] 2025-03-31 21:04 Sepsis, unspecified [facility] 2025-04-01 00:20 Sepsis, unspecified organism [facility] 2025-04-01 00:20 Imaging @ [place] [facility] @ Ultrasonography @ Internal Carotid Arteries, Bilateral [facility] 2025-04-01 00:20 Type 2 diabetes mellitus withou t complications [facility] 2025-04-01 00:20 Metabolic encephalopathy [facility] 2025-04-01 00:20 [facility] 2025-04-01 00:20 Severe sepsis without septic sh ock [facility] 2025-04-01 05:43 Sepsis, unspecified organism [facility] 2025-04-01 05:43 Imaging @ [place] [facility] @ Ultrasonography @ Internal Carotid Arteries, Bilateral [facility] 2025-04-01 05:43 Type 2 diabetes mellitus withou t complications [facility] 2025-04-01 05:43 Metabolic encephalopathy [facility] 2025-04-01 05:43 Acute cystitis with hematuria [facility] 2025-04-01 05:43 Severe sepsis without septic sh ock [facility] 2025-04-01 08:40 Sepsis, unspecified organism [facility] 2025-04-01 08:40 Imaging @ [place] @ Ultrasonography @ Internal Carotid Arteries, Bilateral [facility] 2025-04-01 08:40 Type 2 diabetes mellitus withou t complications [facility] 2025-04-01 08:40 Metabolic encephalopathy [facility] 2025-04-01 08:40 Acute cystitis with hematuria [facility] 2025-04-01 08:40 Severe sepsis without septic sh [facility] Results/Labs test date facility value unit notes Result panel 1 BILIRUBIN,TOTAL 2025-01-24 12:55 [facility] 0.4 mg /dl As of December 2022 testing method has changed, this may include reference ranges. ALBUMIN/GLOBULIN RATIO 2025-01-24 12:55 [facility] 1.1 (missing) (missing) CREATININE 2025-01-24 12:55 [facility] 1.1 mg/dl As of December 2022 testing method has changed, this may include reference ranges. CHLORIDE 2025-01-24 12:55 [facility] 107 mmol/l As of December 2022 testing method has changed, this may include reference ranges. ESTIMATED AVERAGE GLUCOSE 2025-01-24 12:55 [facility] 140 mg/dl (missing) SODIUM 2025-01-24 12:55 [facility] 141 mmol/l Unknown AST ASPARTATE AMINOTRANSFERASE 2025-01-24 12:55 [facility] 17 iu/l As of December 2022 testing method has changed, this may include reference ranges. GLUCOSE 2025-01-24 12:55 [facility] 188 mg/dl As of December 2022 testing method has changed, this may include reference ranges. BUN - BLOOD UREA NITROGEN 2025-01-24 12:55 [facility] 21 mg/dl As of Dec testing method has changed, this may include reference ranges. CARBON DIOXIDE - CO2 2025-01-24 12:55 [facility] 29 mmol/l As of December 2022 testing method has changed, this may include reference ranges. GLOBULIN 2025-01-24 12:55 [facility] 3.3 g/dl (missing) POTASSIUM 2025-01-24 12:55 [facility] 3.6 mmol/l As of December 2022 testing method has changed, this may include reference ranges. ALBUMIN 2025-01-24 12:55 [facility] 3.7 g/dl As of December 2022 testing method has changed, this may include reference ranges. ALT ALANINE AMINOTRANSFERASE 2025-01-24 12:55 [facility] 30 iu/l As of December 2022 testing method has changed, this may include reference ranges. ANION GAP 2025-01-24 12:55 [facility] 5.0 (missing ) (missing) HEMOGLOBIN A1c% 2025-01-24 12:55 [facility] 6.5 % The [place] [employer] (ADA) has made the following recommendations: Monitoring HbA1c in Diabetic Patients: A1c (NGSP%) Goal <8 Less Stringent Goal <7 General Goal <6.5 More Stringent Goal Diagnosis of Diabetes: A1c (NGSP%) Goal >6.5 Diabetic 5.7-6.4 Pre-Diabetic <5.7 Non-Diabetic GFR - MDRD 2025-01-24 12:55 [facility] 63 (tasha vitale) The IDMS-traceable MDRD Study Equation has been validated extensively in and populations between the ages of 18 and 70 with impaired kidney function (eGFR < 60 mL/min/1.73m2) and has shown good performance for patients with all common causes of kidney disease. Although this equation has not been validated for patients older than 70, an MDRD-derived eGFR may still be a useful tool for providers caring for patients older than 70. References: http://www.nkdep. nih.gov/lab-evalu ation/gfr/creatin ine-stand ardization, last updated August 2011. TOTAL PROTEIN 2025-01-24 12:55 [facility] 7.0 g/dl As of December 2022 testing method has changed, this may include reference ranges. CALCIUM 2025-01-24 12:55 [facility] 8.9 mg/dl As of December 2022 testing method has changed, this may include reference ranges. ALKALINE PHOSPHATASE 2025-01-24 12:55 [facility] 82 iu/l As of December 2022 testing method has changed, this may include reference ranges. Result panel 2 ETOH - ETHANOL 2025-03-31 12:04 [facility] < 10.0 mg/dl Blood Alcohol Levels Level Sporadic Drinkers Chronic drinkers 100 mg/dL Legally intoxicated* Minimal signs 200-250 mg/dL Alertness lost, Effort needed to becoming lethargic maintain emotional and motor control 300-350 mg/dL Stupor to coma Drowsy and slow >500 mg/dL Possible Coma *The legal definition of intoxication varies. This assy is for medical decision making only. As of December 2022 testing method has changed, this may include reference ranges. NUCLEATED RED BLOOD CELLS AUTO 2025-03-31 12:04 [facility] 0.0 /100wbc (missing) EOSINOPHILS # (AUTO) 2025-03-31 12:04 [facility] 0.0 10 3/ul (missing) NRBC ABSOLUTE COUNT (AUTO) 2025-03-31 12:04 [facility] 0.00 x10 3/ul (missing) BASOPHILS # (AUTO) 2025-03-31 12:04 [facility] 0.1 10 3/ul (missing) BILIRUBIN,TOTAL 2025-03-31 12:04 [facility] 0.5 mg/dl As of December 2022 test ing method has changed, this may include reference ranges. ALBUMIN/GLOBULIN RATIO 2025-03-31 12:04 [facility] 0.8 (missin g) (missing) LYMPHOCYTES # (AUTO) 2025-03-31 12:04 [facility] 1.1 10 3/ul (missing) CREATININE 2025-03-31 12:04 [facility] 1.6 mg/dl As of December 2022 test ing method has changed, this may include reference ranges. AST ASPARTATE AMINOTRANSFERASE 2025-03-31 12:04 [facility] 10 iu/l As of December 2022 test ing method has changed, this may include reference ranges. CHLORIDE 2025-03-31 12:04 [facility] 108 mmol/l As of December 2022 test ing method has changed, this may include reference ranges. MEAN PLATELET VOLUME 2025-03-31 12:04 [facility] 11.0 fl (missing) RED CELL DISTRIBUTION WIDTH 2025-03-31 12:04 [facility] 13.5 % (missing) HGB - HEMOGLOBIN 2025-03-31 12:04 [facility] 14.0 g/dl (missing) SODIUM 2025-03-31 12:04 [facility] 140 mmol/l (missing) ALT ALANINE AMINOTRANSFERASE 2025-03-31 12:04 [facility] 17 iu/l As of December 2022 test ing method has changed, this may include reference ranges. NEUTROPHILS # (AUTO) 2025-03-31 12:04 [facility] 17.1 10 3/ul (missing) PLT - PLATELET COUNT 2025-03-31 12:04 [facility] 178 10 3/ul (missing) RBC MORPHOLOGY (MULTIPLE) 2025-03-31 12:04 [facility] 2+ ANISOCYTOSIS (missin g) (missing) MONOCYTES # (AUTO) 2025-03-31 12:04 [facility] 2.0 10 3/ul (missing) WHITE BLOOD COUNT 2025-03-31 12:04 [facility] 20.6 x10 3/ul (missing) CARBON DIOXIDE - CO2 2025-03-31 12:04 [facility] 26 mmol/l As of December 2022 test ing method has changed, this may include reference ranges. GLUCOSE 2025-03-31 12:04 [facility] 286 mg/dl As of December 2022 test ing method has changed, this may include reference ranges. BUN - BLOOD UREA NITROGEN 2025-03-31 12:04 [facility] 29 mg/dl As of December 2022 test ing method has changed, this may include reference ranges. ALBUMIN 2025-03-31 12:04 [facility] 3.3 g/dl As of December 2022 test ing method has changed, this may include reference ranges. GLOBULIN 2025-03-31 12:04 [facility] 3.9 g/dl (missing) MEAN CORPUSCULAR HEMOGLOBIN 2025-03-31 12:04 [facility] 30.8 pg (missing) MEAN CORPUSCULAR HGB CONC 2025-03-31 12:04 [facility] 31.8 g/dl (missing) POTASSIUM 2025-03-31 12:04 [facility] 4.1 mmol/l As of December 2022 test ing method has changed, this may include reference ranges. RED BLOOD COUNT 2025-03-31 12:04 [facility] 4.54 10 6/ul (missing) GFR - MDRD 2025-03-31 12:04 [facility] 41 (missin g) The IDMS-traceable MDRD Study Equation has been validated extensively in and populations between the ages of 18 and 70 with impaired kidney function (eGFR < 60 mL/min/1.73m2) and has shown good performance for patients with all common causes of kidney disease. Although this equation has not been validated for patients older than 70, an MDRD-derived eGFR may still be a useful tool for providers caring for patients older than 70. References: http://www.nkdep.nih.go v/lab-evaluation/gfr/cr eatinine-stand ardization, last updated August 2011. LIPASE 2025-03-31 12:04 [facility] 43 u/l As of December 2022 test ing method has changed, this may include reference ranges. HCT - HEMATOCRIT 2025-03-31 12:04 [facility] 44.0 % (missing) ANION GAP 2025-03-31 12:04 [facility] 6.0 (missin g) (missing) TOTAL PROTEIN 2025-03-31 12:04 [facility] 7.2 g/dl As of December 2022 test ing method has changed, this may include reference ranges. ALKALINE PHOSPHATASE 2025-03-31 12:04 [facility] 79 iu/l As of December 2022 test ing method has changed, this may include reference ranges. CALCIUM 2025-03-31 12:04 [facility] 9.1 mg/dl As of December 2022 test ing method has changed, this may include reference ranges. MEAN CORPUSCULAR VOLUME 2025-03-31 12:04 [facility] 96.9 fl (missing) SLIDE REVIEW? 2025-03-31 12:04 [facility] Indicated (missin g) (missing) CULTURE, BLOOD #1 2025-03-31 12:04 [facility] NG1DNO GROWTH AFTER 1 DAY (missin g) (missing) Result panel 3 LACTIC ACID, VENOUS 2025-03-31 12:20 [facility] 1.6 mmol/l N As of 2022 testing method has changed, this may include reference ranges. CULTURE, BLOOD #2 2025-03-31 12:20 [facility] NG1DNO GROWTH AFTER 1 DAY (missing) (missing) Result panel 4 WBC,URINE 2025-03-31 14:30 [facility] >25 /hpf (missing) CASTS, URINE 2025-03-31 14:30 [facility] 0-2 Granular Casts /lpf (missing) UROBILINOGEN,URINE 2025-03-31 14:30 [facility] 0.2 (NORMAL) e.u./dl (missing) SPECIFIC GRAVITY,URINE 2025-03-31 14:30 [facility] 1.015 (missin g) (missing) GLUCOSE, URINE (UA) 2025-03-31 14:30 [facility] 100 mg/dl (missing) CUL, URINE 2025-03-31 14:30 [facility] 100>100,000 CFU/mL (missin g) (missing) KETONES,URINE (UA) 2025-03-31 14:30 [facility] 15 mg/dl (missing) PROTEIN,URINE 2025-03-31 14:30 [facility] 300 mg/dl (missing) PH,URINE 2025-03-31 14:30 [facility] 6.0 ph (missing) CLARITY,URINE 2025-03-31 14:30 [facility] CLOUDY (missin g) (missing) MUDS CUTOFF CONCENTRATIONS 2025-03-31 14:30 [facility] CUTOFF CONC BELOW: (missin g) [facility] uses the PROFILE-V [employer] Drugs of Abuse Test System. It detects drug classes at the following cutoff concentrations: AMP Amphetamine (d-Amphetamine) 500 ng/mL BAR Barbiturates (Butalbital) 200 ng/mL BZO Benzodiazepines (Nordiazepam) 150 ng/mL BUP Buprenorphine (Buprenorphine) 10 ng/mL RODRÍGUEZ Cocaine (Benzoylecgonine) 150 ng/mL MAMP Methamphetamine (d-Methamphetamine ) 500 ng/mL MTD Methadone (Methadone) 200 ng/mL OPI Opiates (Morphine) 100 ng/mL OXY Oxycodone (Oxycodone) 100 ng/mL PCP Phencyclidine (Phencyclidine) 25 ng/mL BUP Buprenorphine (Buprenorphine) 10 ng/mL THC Cannabinoids (41-rvm-2-carboxy- 9-THC) 50 ng/mL TCA Tricyclic Antidepressants (Desipramine) 300 ng/mL All drug screen results are unconfirmed. Results are to be used for medical (i.e. treatment) purposes only. Unconfirmed screening results must not be used for non-medical purposes (e.g., employment testing, legal testing). CUL, URINE 2025-03-31 14:30 [facility] CXPCULTURE IN PROGRESS. RESULTS TO FOLLOW. (missin g) (missing) AMORPHOUS SEDIMENT,UR 2025-03-31 14:30 [facility] Few /lpf (missing) CUL, URINE 2025-03-31 14:30 [facility] IDMIC.1ORG 1 ID/ZACH COM* (missin g) (missing) UR CULTURE IF IND 2025-03-31 14:30 [facility] INDICATED (missin g) (missing) URINE MICROSCOPIC INDICATED? 2025-03-31 14:30 [facility] INDICATED (missin g) (missing) CUL, URINE 2025-03-31 14:30 [facility] LACTOGRAM POSITIVE RODS RESEMBLING LACTOBACILLI (missin g) (missing) LEUKOCYTE ESTERASE, URINE 2025-03-31 14:30 [facility] MODERATE (missin g) (missing) OCCULT BLOOD,URINE 2025-03-31 14:30 [facility] MODERATE (missin g) (missing) BACTERIA,URINE 2025-03-31 14:30 [facility] Many /hpf (missing) AMPHETAMINE SCREEN,URINE 2025-03-31 14:30 [facility] NEGATIVE (missin g) (missing) BARBITURATE SCREEN,UR 2025-03-31 14:30 [facility] NEGATIVE (missin g) (missing) BENZODIAZEPINES SCREEN, URINE 2025-03-31 14:30 [facility] NEGATIVE (missin g) (missing) BUPRENORPHINE SCREEN, URINE 2025-03-31 14:30 [facility] NEGATIVE (missin g) (missing) COCAINE SCREEN URINE 2025-03-31 14:30 [facility] NEGATIVE (missin g) (missing) METHADONE SCREEN, URINE 2025-03-31 14:30 [facility] NEGATIVE (missin g) (missing) METHAMPHETAMINES SCREEN, URINE 2025-03-31 14:30 [facility] NEGATIVE (missin g) (missing) NITRITE,URINE 2025-03-31 14:30 [facility] NEGATIVE (missin g) (missing) OPIATE SCREEN, URINE 2025-03-31 14:30 [facility] NEGATIVE (missin g) (missing) OXYCODONE SCREEN, URINE 2025-03-31 14:30 [facility] NEGATIVE (missin g) (missing) PHENCYCLIDINE SCREEN, URINE 2025-03-31 14:30 [facility] NEGATIVE (missin g) (missing) THC CANNABINOID SCREEN, URINE 2025-03-31 14:30 [facility] NEGATIVE (missin g) (missing) TRICYCLIC ANTIDEPRESSANT,URINE 2025-03-31 14:30 [facility] NEGATIVE (missin g) (missing) BILIRUBIN,URINE 2025-03-31 14:30 [facility] NEGATIVE (missin g) Bilirubin can be influenced by color interference. Please correlate positive results with clinical presentation CUL, URINE 2025-03-31 14:30 [facility] NNO FURTHER WORKUP PERFORMED FOR THIS ORGANISM (missin g) (missing) FENTANYL SCREEN, URINE 2025-03-31 14:30 [facility] Negative (missin g) [facility] uses LZI Fentanyl (Q) Enzyme Immunoassay. RESULT INTERPRETATION: This assay qualitatively detects norfentanyl in urine which is the major metabolite of fentanyl. A result greater than or equal to 5 ng/mL is considered presumptively positive for fentanyl exposure. CLINICAL SIGNIFICANCE: Presumptive positive results indicate norfentanyl concentrations above the assay cutoff. Due to possible cross-reactivity and potential interference, confirmatory testing by a definitive method (e.g., LC-MS/MS) is recommended for positive or unexpected findings. LIMITATIONS: This test is intended for qualitative screening and is unconfirmed. Concentrations below 5 ng/mL may not be reliably detected. False positives and false negatives are possible. Results are to be used for medical purposes only and can't be used for non-medical or legal purposes. CUL, URINE 2025-03-31 14:30 [facility] ORG.1PRELIM ORG ID* (missin g) (missing) CUL, URINE 2025-03-31 14:30 [facility] Pending (missin g) (missing) SQUAMOUS EPITHELIAL CELL,UR 2025-03-31 14:30 [facility] RARE Squamous (missin g) (missing) RBC,URINE 2025-03-31 14:30 [facility] TNTC /hpf (missing) CUL, URINE 2025-03-31 14:30 [facility] UCC.1ORG 1 CC* (missin g) (missing) COLOR,URINE 2025-03-31 14:30 [facility] YELLOW (missin g) URINE CATHETERIZED Result panel 5 RHINOVIRUS/ENTEROVIRUS 2025-03-31 16:30 [facility] DETECTED (missing) Human Rhinovirus/Enterovirus detected by the [employer] RP2.1 Panel, a multiplexed nucleic acid test intended for the simultaneous qualitative detection and differentiation of nucleic acids from multiple viral and bacterial respiratory organisms. SARS-CoV-2 -RESP PCR PANEL 2025-03-31 16:30 [facility] NOT DETECTED (missing) A negative test result for this test indicates that SARS-CoV-2 RNA was not present in the specimen above the limit of detection. Testing performed on the [employer] RP2.1 Panel, a multiplexed nucleic acid repiratory panel. Negative results do not preclude infection with SARS-CoV-2 virus and should not be the sole basis of a patient management decision. In some patients repeat testing at various time points may be necessary for virus detection. False-negative results may arise from improper sample collection, degradation of viral RNA during shipping or storage, the presence of PCR inhibitors, and/or mutation in the SARS-CoV-2 virus. INFLUENZA A- RESP PCR PANEL 2025-03-31 16:30 [facility] NOT DETECTED (missing) Influenza A including subtypes H1, H3, and H1-2009 not detected by the [employer] RP2.1 Panel, a multiplexed nucleic acid test intended for the simultaneous qualitative detection and differentiation of nucleic acids from multiple viral and bacterial respiratory organisms. B. PARAPERTUSSIS- RESP PCR CASILLAS 2025-03-31 16:30 [facility] NOT DETECTED (missing) Negative results for this organism do not preclude infection with this organism and may require additional laboratory testing (e.g., bacterial and viral culture, immunofluorescence, and radiography) when evaluating a patient with possible respiratory tract infection. B. PERTUSSIS- RESP PCR PANEL 2025-03-31 16:30 [facility] NOT DETECTED (missing) Negative results for this organism do not preclude infection with this organism and may require additional laboratory testing (e.g., bacterial and viral culture, immunofluorescence, and radiography) when evaluating a patient with possible respiratory tract infection. C. PNEUMONIAE- RESP PCR PANEL 2025-03-31 16:30 [facility] NOT DETECTED (missing) Negative results for this organism do not preclude infection with this organism and may require additional laboratory testing (e.g., bacterial and viral culture, immunofluorescence, and radiography) when evaluating a patient with possible respiratory tract infection. M. PNEUMONIAE- RESP PCR PANEL 2025-03-31 16:30 [facility] NOT DETECTED (missing) Negative results for this organism do not preclude infection with this organism and may require additional laboratory testing (e.g., bacterial and viral culture, immunofluorescence, and radiography) when evaluating a patient with possible respiratory tract infection. ADENOVIRUS - RESP PCR PANEL 2025-03-31 16:30 [facility] NOT DETECTED (missing) Negative results in the setting ofa respiratory illness may be due to infection with pathogens not detected by this test, or lower respiratory tract infection that may not be detected by nasopharyngeal specimen. CORONAVIRUS 229E-RESP PCR 2025-03-31 16:30 [facility] NOT DETECTED (missing) Negative results in the setting ofa respiratory illness may be due to infection with pathogens not detected by this test, or lower respiratory tract infection that may not be detected by nasopharyngeal specimen. CORONAVIRUS HKU1-RESP PCR 2025-03-31 16:30 [facility] NOT DETECTED (missing) Negative results in the setting ofa respiratory illness may be due to infection with pathogens not detected by this test, or lower respiratory tract infection that may not be detected by nasopharyngeal specimen. CORONAVIRUS [id number]-[id number] PCR 2025-03-31 16:30 [facility] NOT DETECTED (missing) Negative results in the setting ofa respiratory illness may be due to infection with pathogens not detected by this test, or lower respiratory tract infection that may not be detected by nasopharyngeal specimen. CORONAVIRUS [id number]-WIBR PCR 2025-03-31 16:30 [facility] NOT DETECTED (missing) Negative results in the setting ofa respiratory illness may be due to infection with pathogens not detected by this test, or lower respiratory tract infection that may not be detected by nasopharyngeal specimen. HUMAN METAPNEUMOVIRUS 2025-03-31 16:30 [facility] NOT DETECTED (missing) Negative results in the setting ofa respiratory illness may be due to infection with pathogens not detected by this test, or lower respiratory tract infection that may not be detected by nasopharyngeal specimen. INFLUENZA B - RESP PCR PANEL 2025-03-31 16:30 [facility] NOT DETECTED (missing) Negative results in the setting ofa respiratory illness may be due to infection with pathogens not detected by this test, or lower respiratory tract infection that may not be detected by nasopharyngeal specimen. PARAINFLUENZA VIRUS 1 2025-03-31 16:30 [facility] NOT DETECTED (missing) Negative results in the setting ofa respiratory illness may be due to infection with pathogens not detected by this test, or lower respiratory tract infection that may not be detected by nasopharyngeal specimen. PARAINFLUENZA VIRUS 2 2025-03-31 16:30 [facility] NOT DETECTED (missing) Negative results in the setting ofa respiratory illness may be due to infection with pathogens not detected by this test, or lower respiratory tract infection that may not be detected by nasopharyngeal specimen. PARAINFLUENZA VIRUS 3 2025-03-31 16:30 [facility] NOT DETECTED (missing) Negative results in the setting ofa respiratory illness may be due to infection with pathogens not detected by this test, or lower respiratory tract infection that may not be detected by nasopharyngeal specimen. PARAINFLUENZA VIRUS 4 2025-03-31 16:30 [facility] NOT DETECTED (missing) Negative results in the setting ofa respiratory illness may be due to infection with pathogens not detected by this test, or lower respiratory tract infection that may not be detected by nasopharyngeal specimen. RSV- RESP PCR PANEL 2025-03-31 16:30 [facility] NOT DETECTED (missing) Negative results in the setting ofa respiratory illness may be due to infection with pathogens not detected by this test, or lower respiratory tract infection that may not be detected by nasopharyngeal specimen. Result panel 6 GLUCOSE, WHOLE BLOOD [facility]25-04-01 00[facility] (missing) (missing) Result panel 7 NUCLEATED RED BLOOD CELLS AUTO 2025-04-01 04:47 [facility] 0.0 /100wbc (missing) NRBC ABSOLUTE COUNT (AUTO) 2025-04-01 04:47 [facility] 0.00 x10 3/ul (missing) BASOPHILS # (AUTO) 2025-04-01 04:47 [facility] 0.1 10 3/ul (missing) EOSINOPHILS # (AUTO) 2025-04-01 04:47 [facility] 0.1 10 3/ul (missing) LYMPHOCYTES # (AUTO) 2025-04-01 04:47 [facility] 0.8 10 3/ul (missing) MONOCYTES # (AUTO) 2025-04-01 04:47 [facility] 1.2 10 3/ul (missing) CREATININE 2025-04-01 04:47 [facility] 1.4 mg/dl As of December 2022 testing method has changed, this may include reference ranges. CHLORIDE 2025-04-01 04:47 [facility] 107 mmol/l As of December 2022 testing method has changed, this may include reference ranges. MEAN PLATELET VOLUME 2025-04-01 04:47 [facility] [place] 11.5 fl (missing) RED CELL DISTRIBUTION WIDTH 2025-04-01 04[facility].6 % (ak ssi) HGB - HEMOGLOBIN 2025-04-01 04:47 [facility] 13.7 g /dl (missing) SODIUM 2025-04-01 04:47 [facility] 138 mmol/l (missing) NEUTROPHILS # (AUTO) 2025-04-01 04:47 [facility] 14.8 10 3/ul (missing) PLT - PLATELET COUNT 2025-04-01 04:47 [facility] 158 10 3/ul (missing) ESTIMATED AVERAGE GLUCOSE 2025-04-01 04:47 [facility] 163 mg/dl (missing) WHITE BLOOD COUNT 2025-04-01 04:47 [facility] 17.1 x10 3/ul (missing) CARBON DIOXIDE - CO2 2025-04-01 04:47 [facility] 24 mmol/l As of December 2022 testing method has changed, this may include reference ranges. BUN - BLOOD UREA NITROGEN 2025-04-01 04:47 [facility] 26 mg/dl As of Dec testing method has changed, this may include reference ranges. GLUCOSE 2025-04-01 04:47 [facility] 267 mg/dl As of December 2022 testing method has changed, this may include reference ranges. POTASSIUM 2025-04-01 04:47 [facility] 3.9 mmol/l As of December 2022 testing method has changed, this may include reference ranges. MEAN CORPUSCULAR HEMOGLOBIN 2025-04-01 04:47 [facility] 31.4 pg (missing) MEAN CORPUSCULAR HGB CONC 2025-04-01 04:47 [facility] 32.5 g/dl (missing) RED BLOOD COUNT 2025-04-01 04:47 [facility] 4.37 10 6/ul (missing) HCT - HEMATOCRIT 2025-04-01 04:47 [facility] 42.1 % (missing) GFR - MDRD 2025-04-01 04:47 [facility] 48 (missin g) The IDMS-traceable MDRD Study Equation has been validated extensively in and populations between the ages of 18 and 70 with impaired kidney function (eGFR < 60 mL/min/1.73m2) and has shown good performance for patients with all common causes of kidney disease. Although this equation has not been validated for patients older than 70, an MDRD-derived eGFR may still be a useful tool for providers caring for patients older than 70. References: http://www.nkdep.n ih.gov/lab-evaluat ion/gfr/creatinine -stand ardization, last updated August 2011. ANION GAP 2025-04-01 04:47 [facility] 7.0 (missing ) (missing) HEMOGLOBIN A1c% 2025-04-01 04:47 [facility] 7.3 % The [place] Diabetes Association (ADA) has made the following recommendations: Monitoring HbA1c in Diabetic Patients: A1c (NGSP%) Goal <8 Less Stringent Goal <7 General Goal <6.5 More Stringent Goal Diagnosis of Diabetes: A1c (NGSP%) Goal >6.5 Diabetic 5.7-6.4 Pre-Diabetic <5.7 Non-Diabetic CALCIUM 2025-04-01 04:47 [facility] 8.7 mg/dl As of December 2022 testing method has changed, this may include reference ranges. MEAN CORPUSCULAR VOLUME 2025-04-01 04:47 [facility] 96.3 fl (missing) Result panel 8 GLUCOSE, WHOLE BLOOD 2025-04-01 07:56 [facility] 219 (missing) (missing) Result panel 9 GLUCOSE, WHOLE BLOOD 2025-04-01 11:43 [facility] 262 (missing) (missing) Result panel 10 GLUCOSE, WHOLE BLOOD 2025-04-01 16:55 [facility] 296 (missing) (missing) Social History date description facility
--- OUTSIDE RECORDS SUMMARY | 2025-04-01 19:50 | EXTERNAL MEDICAL SUMMARY RPT | Continuity of Care Document ---
Author Organization [place] Address [address] [place] [id number] Phone Problems date description facility 2025-01-24 13:25 Anemia, unspecified [facility] 2025-01-24 13:25 [facility] 07:[facility] Anemia, unspecified [facility] 2025 07:52 Essential (primary) hypertensio n [facility] 2025 07:53 Anemia, unspecified [facility] 2025 07:53 Essential (primary) [facility]25 16:26 Anemia, unspecified [facility] 2025 16:26 Essential (primary) [facility]ensio [facility] 2025-02-12 14:52 Pain in left ankle and joints o f left foot [facility] 2025-02-12 14:52 Localized swelling, mass and brenna mp, [facility] 2025-03-31 21:04 Sepsis, unspecified [facility] 2025-04-01 00:20 Sepsis, unspecified organism [facility] 2025-04-01 00:20 Imaging @ [place] radha @ Ultrasonography @ Internal Carotid Arteries, Bilateral [facility] 2025-04-01 00:20 Type 2 diabetes mellitus withou t complications [facility] 2025-04-01 00:20 [facility]abolic encephalopathy [facility] 2025-04-01 00:20 [facility] 2025-04-01 00:20 Severe sepsis without septic sh [facility]ck [facility] 2025-04-01 05:43 Sepsis, unspecified organism [facility] 2025-04-01 05:43 Imaging @ Upper [place] radha @ Ultrasonography @ Internal Carotid Arteries, Bilateral [email or web address] 2025-04-01 05:43 Type 2 diabetes mellitus withou t complications [email or web address] 2025-04-01 05:43 Metabolic encephalopathy [facility] 2025-04-01 05:43 Acute cystitis with hematuria [facility] 2025-04-01 05:43 Severe sepsis without septic sh ock [email or web address] 2025-04-01 08:40 Sepsis, unspecified organism [facility] 2025-04-01 08:40 Imaging @ Upper [place] radha @ Ultrasonography @ Internal Carotid Arteries, Bilateral [email or web address] 2025-04-01 08:40 Type 2 diabetes mellitus withou t complications [email or web address] 2025-04-01 08:40 Metabolic encephalopathy [facility] 2025-04-01 08:40 Acute cystitis with hematuria [facility] 2025-04-01 08:40 Severe sepsis without septic [email or web address] Results/Labs test date facility value unit notes Result panel 1 BILIRUBIN,TOTAL 2025-01-24 12:55 [email or web address] 0.4 mg /dl As of December 2022 testing method has changed, this may include reference ranges. ALBUMIN/GLOBULIN RATIO 2025-01-24 12:55 [email or web address] 1.1 (missing) (missing) CREATININE 2025-01-24 12:55 [email or web address] 1.1 mg/dl As of December 2022 testing method has changed, this may include reference ranges. CHLORIDE 2025-01-24 12:55 [email or web address] 107 mmol/l As of December 2022 testing method has changed, this may include reference ranges. ESTIMATED AVERAGE GLUCOSE 2025-01-24 12:55 [email or web address] 140 mg/dl (missing) SODIUM 2025-01-24 12:55 [email or web address] 141 mmol/l Unknown AST ASPARTATE AMINOTRANSFERASE 2025-01-24 12:55 [email or web address] 17 iu/l As of December 2022 testing method has changed, this may include reference ranges. GLUCOSE 2025-01-24 12:55 [email or web address] 188 mg/dl As of December 2022 testing method has changed, this may include reference ranges. BUN - BLOOD UREA NITROGEN 2025-01-24 12:55 [email or web address] 21 mg/dl As of Dec testing method has changed, this may include reference ranges. CARBON DIOXIDE - CO2 2025-01-24 12:55 [email or web address] 29 mmol/l As of December 2022 testing method has changed, this may include reference ranges. GLOBULIN 2025-01-24 12:55 [email or web address] 3.3 g/dl (missing) POTASSIUM 2025-01-24 12:55 [email or web address] 3.6 mmol/l As of December 2022 testing method has changed, this may include reference ranges. ALBUMIN 2025-01-24 12:55 [email or web address] 3.7 g/dl As of December 2022 testing method has changed, this may include reference ranges. ALT ALANINE AMINOTRANSFERASE 2025-01-24 12:55 [email or web address] 30 iu/l As of December 2022 testing method has changed, this may include reference ranges. ANION GAP 2025-01-24 12:55 [email or web address] 5.0 (missing ) (missing) HEMOGLOBIN A1c% 2025-01-24 12:55 [email or web address] 6.5 % The [place] [employer] (ADA) has made the following recommendations: Monitoring HbA1c in Diabetic Patients: A1c (NGSP%) Goal <8 Less Stringent Goal <7 General Goal <6.5 More Stringent Goal Diagnosis of Diabetes: A1c (NGSP%) Goal >6.5 Diabetic 5.7-6.4 Pre-Diabetic <5.7 Non-Diabetic GFR - MDRD 2025-01-24 12:55 [email or web address] 63 (tasha vitale) The IDMS-traceable MDRD Study [...] updated August 2011. TOTAL PROTEIN 2025-01-24 12:55 [email or web address] 7.0 g/dl As of December 2022 testing method has changed, this may include reference ranges. CALCIUM 2025-01-24 12:55 [facility] 8.9 mg/dl As of December 2022 [...] NUCLEATED RED BLOOD CELLS AUTO 2025-03-31 12:04 [facility] 0.0 /100wbc (missing) EOSINOPHILS # (AUTO) 2025-03-31 12:04 [facility] 0.0 10 3/ul (missing) NRBC ABSOLUTE COUNT (AUTO) 2025-03-31 12:04 [facility] 0.00 x10 3/ul (missing) BASOPHILS # (AUTO) 2025-03-31 12:04 [facility] 0.1 10 3/ul (missing) BILIRUBIN,TOTAL 2025-03-31 12:04 [facility] 0.5 mg/dl As of December 2022 test ing method has changed, this may include reference ranges. ALBUMIN/GLOBULIN RATIO 2025-03-31 12:04 [facility] 0.8 (missin g) (missing) LYMPHOCYTES # (AUTO) 2025-03-31 12:04 [facility] 1.1 10 3/ul (missing) CREATININE 2025-03-31 12:04 [facility] 1.6 mg/dl As of December 2022 test ing method has changed, this may include reference ranges. AST ASPARTATE AMINOTRANSFERASE 2025-03-31 12:04 [email or web address] 10 iu/l As of December 2022 test ing method has changed, this may include reference ranges. CHLORIDE 2025-03-31 12:04 [email or web address] 108 mmol/l As of December 2022 test ing method has changed, this may include reference ranges. MEAN PLATELET VOLUME 2025-03-31 12:04 [email or web address] 11.0 fl (missing) RED CELL DISTRIBUTION WIDTH 2025-03-31 12:04 [email or web address] 13.5 % (missing) HGB - HEMOGLOBIN 2025-03-31 12:04 [email or web address] 14.0 g/dl (missing) SODIUM 2025-03-31 12:04 [email or web address] 140 mmol/l (missing) ALT ALANINE AMINOTRANSFERASE 2025-03-31 12:04 [email or web address] 17 iu/l As of December 2022 test ing method has changed, this may include reference ranges. NEUTROPHILS # (AUTO) 2025-03-31 12:04 [email or web address] 17.1 10 3/ul (missing) PLT - PLATELET COUNT 2025-03-31 12:04 [email or web address] 178 10 3/ul (missing) RBC MORPHOLOGY (MULTIPLE) 2025-03-31 12:04 [email or web address] 2+ ANISOCYTOSIS (missin g) (missing) MONOCYTES # (AUTO) 2025-03-31 12:04 [email or web address] 2.0 10 3/ul (missing) WHITE BLOOD COUNT 2025-03-31 12:04 [email or web address] 20.6 x10 3/ul (missing) CARBON DIOXIDE - CO2 2025-03-31 12:04 [email or web address] 26 mmol/l As of December 2022 test ing method has changed, this may include reference ranges. GLUCOSE 2025-03-31 12:04 [email or web address] 286 mg/dl As of December 2022 test ing method has changed, this may include reference ranges. BUN - BLOOD UREA NITROGEN 2025-03-31 12:04 [email or web address] 29 mg/dl As of December 2022 test ing method has changed, this may include reference ranges. ALBUMIN 2025-03-31 12:04 [email or web address] 3.3 g/dl As of December 2022 test ing method has changed, this may include reference ranges. GLOBULIN 2025-03-31 12:04 [email or web address] 3.9 g/dl (missing) MEAN CORPUSCULAR HEMOGLOBIN 2025-03-31 12:04 [email or web address] 30.8 pg (missing) MEAN CORPUSCULAR HGB CONC 2025-03-31 12:04 [email or web address] 31.8 g/dl (missing) POTASSIUM 2025-03-31 12:04 [email or web address] 4.1 mmol/l As of December 2022 test ing method has changed, this may include reference ranges. RED BLOOD COUNT 2025-03-31 12:04 [email or web address] 4.54 10 6/ul (missing) GFR - MDRD 2025-03-31 12:04 [email or web address] 41 (missin g) The IDMS-traceable MDRD Study [...] last updated August 2011. LIPASE 2025-03-31 12:04 [email or web address] 43 u/l As of December 2022 test ing method has changed, this may include reference ranges. HCT - HEMATOCRIT 2025-03-31 12:04 [email or web address] 44.0 % (missing) ANION GAP 2025-03-31 12:04 [email or web address] 6.0 (missin g) (missing) TOTAL PROTEIN 2025-03-31 12:04 [email or web address] 7.2 g/dl As of December 2022 test ing method has changed, this may include reference ranges. ALKALINE PHOSPHATASE 2025-03-31 12:04 [email or web address] 79 iu/l As of December 2022 test ing method has changed, this may include reference ranges. CALCIUM 2025-03-31 12:04 [email or web address] 9.1 mg/dl As of December 2022 test ing method has changed, this may include reference ranges. MEAN CORPUSCULAR VOLUME 2025-03-31 12:04 [facility] 96.9 fl (missing) SLIDE REVIEW? 2025-03-31 12:04 [facility] Indicated (missin g) (missing) CULTURE, BLOOD #1 2025-03-31 12:04 [facility] NG1DNO GROWTH AFTER 1 DAY (missin g) (missing) Result panel 3 LACTIC ACID, VENOUS 2025-03-31 12:20 [facility] 1.6 mmol/l N As of 2022 testing method has changed, this may include reference ranges. CULTURE, BLOOD #2 2025-03-31 12:20 [facility] NG1DNO GROWTH AFTER 1 DAY (missing) (missing) Result panel 4 WBC,URINE 2025-03-31 14:30 [facility] >25 /hpf (missing) CASTS, URINE 2025-03-31 14:30 [facility] 0-2 Granular Casts /lpf (missing) UROBILINOGEN,URINE 2025-03-31 14:30 [facility] 0.2 (NORMAL) e.u./dl (missing) SPECIFIC GRAVITY,URINE 2025-03-31 14:30 [facility] 1.015 (missin g) (missing) GLUCOSE, URINE (UA) 2025-03-31 14:30 [facility] 100 mg/dl (missing) CUL, URINE 2025-03-31 14:30 [facility] 100>100,000 CFU/mL (missin g) (missing) KETONES,URINE (UA) 2025-03-31 14:30 [facility] 15 mg/dl (missing) PROTEIN,URINE 2025-03-31 14:30 [facility] 300 mg/dl (missing) PH,URINE 2025-03-31 14:30 [facility] 6.0 ph (missing) CLARITY,URINE 2025-03-31 14:30 [facility] CLOUDY (missin g) (missing) MUDS CUTOFF CONCENTRATIONS 2025-03-31 14:30 [facility] CUTOFF CONC BELOW: (missin g) [facility] uses the PROFILE-V [facility] Drugs of Abuse Test System. It detects [...] BUP Buprenorphine (Buprenorphine) 10 ng/mL THC Cannabinoids (21-zcj-1-carboxy- 9-THC) 50 ng/mL TCA Tricyclic Antidepressants (Desipramine) 300 ng/mL All drug screen results are unconfirmed. Results are to be used for medical (i.e. treatment) purposes only. Unconfirmed screening results must not be used for non-medical purposes (e.g., employment testing, legal testing). CUL, URINE 2025-03-31 14:30 [email or web address] CXPCULTURE IN PROGRESS. RESULTS TO FOLLOW. (missin g) (missing) AMORPHOUS SEDIMENT,UR 2025-03-31 14:30 [email or web address] Few /lpf (missing) CUL, URINE 2025-03-31 14:30 [facility] IDMIC.1ORG 1 ID/ZACH COM* (missin g) (missing) UR CULTURE IF IND 2025-03-31 14:30 [email or web address] INDICATED (missin g) (missing) URINE MICROSCOPIC INDICATED? 2025-03-31 14:30 [email or web address] INDICATED (missin g) (missing) CUL, URINE 2025-03-31 14:30 [email or web address] LACTOGRAM POSITIVE RODS RESEMBLING LACTOBACILLI (missin g) (missing) LEUKOCYTE ESTERASE, URINE 2025-03-31 14:30 [email or web address] MODERATE (missin g) (missing) OCCULT BLOOD,URINE 2025-03-31 14:30 [email or web address] MODERATE (missin g) (missing) BACTERIA,URINE 2025-03-31 14:30 [email or web address] Many /hpf (missing) AMPHETAMINE SCREEN,URINE 2025-03-31 14:30 [...] or legal purposes. CUL, URINE 2025-03-31 14:30 [email or web address] ORG.1PRELIM ORG ID* (missin g) (missing) CUL, URINE 2025-03-31 14:30 [email or web address] Pending (missin g) (missing) SQUAMOUS EPITHELIAL CELL,UR 2025-03-31 14:30 [email or web address] RARE Squamous (missin g) (missing) RBC,URINE 2025-03-31 14:30 [email or web address] TNTC /hpf (missing) CUL, URINE 2025-03-31 14:30 [email or web address] UCC.1ORG 1 CC* (missin g) (missing) COLOR,URINE 2025-03-31 14:30 [email or web address] YELLOW (missin g) URINE CATHETERIZED Result panel 5 RHINOVIRUS/ENTEROVIRUS 2025-03-31 16:30 [email or web address] DETECTED (missing) Human Rhinovirus/Enterovirus detected by the [employer] RP2.1 Panel, a multiplexed nucleic acid test intended for the simultaneous qualitative detection and differentiation of nucleic acids from multiple viral and bacterial respiratory organisms. SARS-CoV-2 -RESP PCR PANEL 2025-03-31 16:30 [email or web address] NOT DETECTED (missing) A negative test result [...] H3, and H1-2009 not detected by the [employer] RP2.1 Panel, a multiplexed nucleic acid test [...] not be detected by nasopharyngeal specimen. CORONAVIRUS [id number]-[id number] PCR 2025-03-31 16:30 [facility] NOT DETECTED (missing) Negative results in the setting ofa respiratory illness may be due to infection with pathogens not detected by this test, or lower respiratory tract infection that may not be detected by nasopharyngeal specimen. CORONAVIRUS [id number] PCR 2025-03-31 16:30 [facility] NOT DETECTED [...] nasopharyngeal specimen. PARAINFLUENZA VIRUS 4 2025-03-31 16:30 [facility] NOT DETECTED (missing) Negative results in the setting ofa respiratory illness may be due to infection with pathogens not detected by this test, or lower respiratory tract infection that may not be detected by nasopharyngeal specimen. RSV- RESP PCR PANEL 2025-03-31 16:30 [facility] NOT DETECTED (missing) Negative results in the setting ofa respiratory illness may be due to infection with pathogens not detected by this test, or lower respiratory tract infection that may not be detected by nasopharyngeal specimen. Result panel 6 GLUCOSE, WHOLE BLOOD 2025-04-01 00:49 [facility] 214 (missing) (missing) Result panel 7 NUCLEATED RED BLOOD CELLS AUTO 2025-04-01 04:47 [facility] 0.0 /100wbc (missing) NRBC ABSOLUTE COUNT (AUTO) 2025-04-01 04:47 [facility] 0.00 x10 3/ul (missing) BASOPHILS # (AUTO) 2025-04-01 04:47 [facility] 0.1 10 3/ul (missing) EOSINOPHILS # (AUTO) 2025-04-01 04:47 [facility] 0.1 10 3/ul (missing) LYMPHOCYTES # (AUTO) 2025-04-01 04:47 [facility] 0.8 10 3/ul (missing) MONOCYTES # (AUTO) 2025-04-01 04:47 [facility] 1.2 10 3/ul (missing) CREATININE 2025-04-01 04:47 [facility] 1.4 mg/dl As of December 2022 testing method has changed, this may include reference ranges. CHLORIDE 2025-04-01 04:47 [facility] 107 mmol/l As of December 2022 testing method has changed, this may include reference ranges. MEAN PLATELET VOLUME 2025-04-01 04:47 [facility] 11.5 fl (missing) RED CELL DISTRIBUTION WIDTH 2025-04-01 04:47 [facility] 13.6 % (md ssi) HGB - HEMOGLOBIN 2025-04-01 04:47 [facility] 13.7 g /dl (missing) SODIUM 2025-04-01 04:47 [facility] 138 mmol/l (missing) NEUTROPHILS # (AUTO) 2025-04-01 04:47 [email or web address] 14.8 10 3/ul (missing) PLT - PLATELET COUNT 2025-04-01 04:47 [email or web address] 158 10 3/ul (missing) ESTIMATED AVERAGE GLUCOSE 2025-04-01 04:47 [email or web address] 163 mg/dl (missing) WHITE BLOOD COUNT 2025-04-01 04:47 [email or web address] 17.1 x10 3/ul (missing) CARBON DIOXIDE - CO2 2025-04-01 04:47 [email or web address] 24 mmol/l As of December 2022 testing method has changed, this may include reference ranges. BUN - BLOOD UREA NITROGEN 2025-04-01 04:47 [email or web address] 26 mg/dl As of Dec testing method has changed, this may include reference ranges. GLUCOSE 2025-04-01 04:47 [email or web address] 267 mg/dl As of December 2022 testing method has changed, this may include reference ranges. POTASSIUM 2025-04-01 04:47 [email or web address] 3.9 mmol/l As of December 2022 testing method has changed, this may include reference ranges. MEAN CORPUSCULAR HEMOGLOBIN 2025-04-01 04:47 [email or web address] 31.4 pg (missing) MEAN CORPUSCULAR HGB CONC 2025-04-01 04:47 [email or web address] 32.5 g/dl (missing) RED BLOOD COUNT 2025-04-01 04:47 [email or web address] 4.37 10 6/ul (missing) HCT - HEMATOCRIT 2025-04-01 04:47 [email or web address] 42.1 % (missing) GFR - MDRD 2025-04-01 04:47 [email or web address] 48 (missin g) The IDMS-traceable MDRD Study [...] updated August 2011. ANION GAP 2025-04-01 04:47 [email or web address] 7.0 (missing ) (missing) HEMOGLOBIN A1c% 2025-04-01 04:47 [email or web address] 7.3 % The [place] [employer] (ADA) has made the following recommendations: Monitoring HbA1c in Diabetic Patients: A1c (NGSP%) Goal <8 Less Stringent Goal <7 General Goal <6.5 More Stringent Goal Diagnosis of Diabetes: A1c (NGSP%) Goal >6.5 Diabetic 5.7-6.4 Pre-Diabetic <5.7 Non-Diabetic CALCIUM 2025-04-01 04:47 [email or web address] 8.7 mg/dl As of December 2022 testing method has changed, this may include reference ranges. MEAN CORPUSCULAR VOLUME 2025-04-01 04:47 [email or web address] 96.3 fl (missing) Result panel 8 GLUCOSE, WHOLE BLOOD 2025-04-01 07:56 [email or web address] 219 (missing) (missing) Result panel 9 GLUCOSE, WHOLE BLOOD 2025-04-01 11:43 [email or web address] 262 (missing) (missing) Result panel 10 GLUCOSE, WHOLE BLOOD 2025-04-01 16:55 [email or web address] 296 (missing) (missing) Social History date description facility
[2025-04-02 00:12] VITALS: TEMP 98.8
[2025-04-02 05:49] LABS: HCT - HEMATOCRIT 43.0 % (42.0-52.0); HGB - HEMOGLOBIN 13.5 g/dL (14.0-18.0); MEAN PLATELET VOLUME 10.6 fL (7.4-11.4); NRBC ABSOLUTE COUNT (AUTO) 0.00 x10^3/uL; NUCLEATED RED BLOOD CELLS AUTO 0.0 /100WBC; PLT - PLATELET COUNT 217 10^3/uL (130-450); RED CELL DISTRIBUTION WIDTH 13.6 % (12.0-15.0)
[2025-04-02 06:06] LABS: BUN - BLOOD UREA NITROGEN 32.0 mg/dL (6-20); CARBON DIOXIDE - CO2 24.0 mmol/L (21-32); CREATININE 1.5 mg/dL (0.6-1.3); GFR - MDRD 44.0 (>89)
--- NOTE | 2025-04-02 13:28 | Discharge Summary ---
Discharge Summary Admit Date: 03/31/25 Discharge Date: 04/02/25 Discharging Provider: Jose Martin Primary Care Provider: Cady Hutchinson Code Status: Do Not Attempt Resuscitation DIAGNOSES Admission Diagnoses: Sepsis UTI Rhinovirus Diabetes Discharge Diagnoses with Status of Each Condition: Sepsisresolved UTIurine cultures pending, DC on Augmentin Rhinoviruson room air, DC with mucolytic Diabeteschronic HPI History of Present Illness: 85-year-old male with a past medical history of stroke on dual antiplatelet therapy, bedbound, diabetes mellitus, chronic lower extremity edema with comfort measures WATSON presents to the emergency department with confusion for 1 day. Also has had a cough and a runny nose. He was evaluated in the emergency department with a CT of the head which was unremarkable, a CT of the chest showing centrilobular emphysema scattered small infiltrates versus atelectasis in bilateral lung razo no pleural effusion or pneumothorax. No pulmonary embolus. At baseline he lives at [facility]. He is nonambulatory uses a sit to stand lift to get to the toilet. His daughter relates to me that toileting has very difficult recently and she requests placement of a Zhou catheter. HOSPITAL COURSE Hospital Course: Patient was held in the hospital, and received a few days of antibiotic therapy for his UTI. His confusion has improved some, and he is a bit more alert today. His WBC has improved to 12.5. He is returning to his retirement facility with a prescription for Augmentin and guaifenesin. He has been instructed to follow-up with his PCP. Blood cultures are no growth to date ALLERGIES Allergies Allergy/AdvReac Type Severity Reaction Status Date / Time No Known Drug Allergies Allergy Verified 11/17/23 13:58 MEDICATIONS Ambulatory Orders Medication Instructions Recorded Confirmed Lactobacillus acidophilus 2 1 ea PO DAILY #5 tabs 11/1204/01/25 billion cell tablet furosemide 40 mg tablet 40 mg PO BID 05/07/21 tamsulosin 0.4 mg capsule 1 cap PO DAILY 05/07/2101/17 amlodipine 10 mg tablet (Norvasc) 10 mg PO DAILY 11/1604/01/25 aspirin 81 mg tablet,delayed 81 mg PO DAILY 11/17/23 1 release ([place] Aspirin) atorvastatin 80 mg tablet (Lipitor) 80 mg PO DAILY 04/01/25 clopidogrel 75 mg tablet (Plavix) 75 mg PO DAILY 11/1604/01/25 insulin glargine 100 unit/mL (3 15 unit subcut DAILY 0 11/17/23 04/01/25 mL) subcutaneous pen (Lantus Solostar U-100 Insulin) potassium chloride 20 mEq 40 meq PO DAILY 11/17/2301/17 tablet,extended release(part/cryst) (Klor-Con M) alendronate 70 mg tablet 70 mg PO Q7D 04/01/25 lisinopril 5 mg tablet 5 mg PO DAILY 04/01/2504/01 spironolactone 25 mg tablet 25 mg PO BID 04/01/2501/17 Augmentin 875 mg-potassium 1 tab PO BID 3 days #6 tabs 04/02/25 clavulanate 125 mg tablet guaifenesin 600 mg tablet, 600 mg PO BID 7 days #14 ta bs 04/02/25 extended release 12 hr PHYSICAL EXAM AT DISCHARGE Physical Exam Other/Comments: General Appearance: positive No acute distress and Alert Eyes Bilateral: positive Normal inspection ENT: positive ENT inspection nml Neck: positive Nml inspection Respiratory: positive No respiratory distress and Rhonchi (bilateral.) Cardiovascular: positive Regular rate & rhythm Abdomen: positive Non-tender and Other (obese) Skin: positive Color nml and Other (plaquelike scales on bilateral lower legs, anterior) Extremities: positive Pedal edema (severe with venous stasis skin changes, mild erythema and warmth, likely chronic. ) Neurologic/Psychiatric: positive Disoriented to place and Disoriented to time LABS 04/02/25 05:42 04/02/25 05:42 SEPSIS Current Stage of Sepsis: Sepsis Possible source of Sepsis: Genitourinary Sepsis Criteria: Recorded Heart Rate greater than 90 bpm and WBC count greater than 12,000 or less than 4000 FOLLOW UP Follow Up: With PCP TIME SPENT Time Spent in Discharge (Minutes): 38 Discharge Plan Discharge Patient Disposition: DC/Xfer Condition: Serious Prescriptions: New amoxicillin-pot clavulanate 875-125 mg tablet 1 tab PO BID 3 Days Qty: 6 0RF guaifenesin 600 mg tablet extended release 12hr 600 mg PO BID 7 Days Qty: 14 0RF Continued Lactobacillus acidophilus 1 EACH tablet 1 ea PO DAILY Qty: 5 0RF furosemide 40 MG tablet 40 mg PO BID Rx Instructions: at 0800 and 1200 tamsulosin 0.4 MG capsule 1 cap PO DAILY Patient Comments: take 1 capsule by mouth once daily atorvastatin [Lipitor] 80 MG tablet 80 mg PO DAILY clopidogrel [Plavix] 75 MG tablet 75 mg PO DAILY aspirin [[place] Aspirin] 81 MG tablet,delayed release (DR/EC) 81 mg PO DAILY potassium chloride [Klor-Con M20] 20 MEQ tablet,ER particles/crystals 40 meq PO DAILY Rx Instructions: 40 MEQ in morn, 20 MEQ at noon amlodipine [Norvasc] 10 MG tablet 10 mg PO DAILY insulin glargine [Lantus Solostar U-100 Insulin] 100 UNIT/ML insulin pen 15 unit subcut DAILY alendronate 70 mg tablet 70 mg PO Q7D lisinopril 5 mg tablet 5 mg PO DAILY spironolactone 25 mg tablet 25 mg PO BID Activity Restrictions: No Restrictions Diet: Diabetic Health Concerns: You came to the hospital because you had confusion as well as a cough and runny nose. Workup was significant for rhinovirus and a UTI. We brought into the hospital started you on antibiotics for UTI, and you are improving. Your white blood cell count, which is a marker for infection, has improved to 12.5 today. Your UA was suggestive of UTI, but cultures have not yet resulted. Your blood cultures still show no growth after 2 days. Your urine cultures are positive, but we do not know the specific bug yet. I am sending you back to your prior living situation with a prescription for Augmentin, which covers most common UTI pathogens. I would like for you to take this twice daily until the bottle is empty. I am making no other changes to your medication regimen, you will resume therapies at [facility] as before. Please drink plenty of water, and follow-up with your primary care provider Print Language: [place] Patient Instructions: ED Altered LOC Stand Alone Forms: SNF Discharge, PCP List Follow-up Care: Cady Hutchinson MD [Primary Care Provider, Satellite Manager] Report called to and time (if no answer, doc. time of each call attempted): BRADEN 1420 x2, 1424. no answer Vitals documented within 30 minutes of discharge?: Yes
[2025-04-02 14:35] VITALS: BP 153/73; O2SAT 96
== END 2025-04-02 14:10 | DRG 871 ==
LOC: ED 11:34 → MS2 20:44
PROVIDERS: ADMIT Physician Assistant Medical; ATTEND Physician Assistant Medical
DX: Z91.81 History of falling; G93.41 Metabolic encephalopathy; Z79.4 Long term (current) use of insulin; B34.8 Other viral infections of unspecified site; I87.8 Other specified disorders of veins; R05.9 Cough, unspecified; E11.22 Type 2 diabetes mellitus with diabetic chronic kidney disease; J43.2 Centrilobular emphysema; Z86.73 Personal history of transient ischemic attack (TIA), and cerebral infarction without residual deficits; Z66 Do not resuscitate; Z74.01 Bed confinement status; R60.0 Localized edema; I12.9 Hypertensive chronic kidney disease with stage 1 through stage 4 chronic kidney disease, or unspecified chronic kidney disease; N18.9 Chronic kidney disease, unspecified; I51.7 Cardiomegaly; Z79.01 Long term (current) use of anticoagulants; N30.01 Acute cystitis with hematuria; N40.0 Benign prostatic hyperplasia without lower urinary tract symptoms; R65.20 Severe sepsis without septic shock; A41.9 Sepsis, unspecified organism